=== PATIENT | male | born 1955 | race Caucasian/White ===

== ENCOUNTER 2017-10-24 15:00 | Inpatient (IN) | payer OTHER ==
--- NOTE | 2017-10-24 15:07 | PDOC ---
Rapid Medical Evaluation Chief Complaint: Redness To Affected Area Time Seen by Provider: 10/24/17 15:03 Medical Evaluation: 10/24/17 15:03 I have performed a brief in-person evaluation of this patient. The patient presents with a CC of: Erythema to the right great toe HPI: Pt complains of erythema to the right great toe with streaking x 2-3 days. Pt has a hx of DM. Pt denies fever at home. Pertinent PE findings: Skin: Pt has moderate erythema to the dorsal aspect of the right foot with erythema to the mid tibia. It is warm to the touch. Heart: RRR Lungs: Clear MS: Sensation intact to right great toe Neuro: Alert and Oriented Psych: Appropriate affect I have ordered the following: Basic labs and IV for IV abx The patient will proceed to the ED for further evaluation.
[2017-10-24 15:10] VITALS: BMI 36.6
[2017-10-24 16:16] LABS: BASO % 0.7 % (0-2.0); EOS % 0.7 % (0-4.5); HEMATOCRIT 39.7 % (35.4-49); HEMOGLOBIN 13.3 GM/dL (11.7-16.9); MCH 28.8 pg (25.7-33.7); MCHC 33.5 g/dl (32.0-35.9); MEAN CELL VOLUME 86.1 fl (80-96); MEAN PLT VOLUME 8.4 fl (7.5-11.1); MONO % 5.5 % (3.8-10.2); NEUT % 86.1 % (42.8-82.8); PLATELET COUNT 322 K/MM3 (134-434); RBC 4.62 M/mm3 (4.00-5.60); RDW 14.9 % (11.9-15.9); WHITE BLOOD COUNT 10.3 K/mm3 (4.0-10.0)
[2017-10-24] MEDS ORDERED: VANCOMYCIN 1,250 MG in DEXTROSE 5%-WATER - 250 ML IVPB ONE (16:17)
[2017-10-24 16:48] LABS: ALBUMIN 3.9 g/dl (3.4-5.0); ANION GAP 8 MMOL/L (8-16); BILIRUBIN,TOTAL 0.6 mg/dL (0.2-1); BLOOD UREA NITROGEN 19 mg/dL (7-18); CALCIUM 9.2 mg/dL (8.5-10.1); CHLORIDE 103 mmol/L (98-107); CO2 27 mmol/L (21-32); GLUCOSE,RANDOM 129 mg/dL (74-106); POTASSIUM 4.3 mmol/L (3.5-5.1); SGOT/AST 23 U/L (15-37); SGPT/ALT 38 U/L (13-61); SODIUM 138 mmol/L (136-145); TOT PROT 7.7 g/dl (6.4-8.2)
[2017-10-24 16:49] LABS: ALK PHOS 68 U/L (45-117)
--- NOTE | 2017-10-24 17:42 | PDOC ---
History of Present Illness <Charlene Bustos - Last Filed: 10/24/17 17:47> - History of Present Illness Initial Comments: 10/24/17 17:36 62 M with h/o DM, MG presenting to ED with RLE redness and swelling. Pt states that this started about 4 weeks ago. Denies any injury to the leg. Pt states that over the past week, the redness began to spread up his leg. Denies F/C. Denies any significant pain. 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 Does not currently follow with a vascular surgeon. <MaribellRene - Last Filed: 10/24/17 18:05> - General Chief Complaint: Redness To Affected Area Stated Complaint: INFECTION R LEG Time Seen by Provider: 10/24/17 15:03 Past History <Charlene Bustos - Last Filed: 10/24/17 17:47> - Past Medical History COPD: No Diabetes: Yes (IDDM) HTN: Yes Hypercholesterolemia: Yes Psychiatric Problems: Yes Other medical history: MYASTHENIA GRAVIS - Suicide/Smoking/Psychosocial Hx Smoking History: Never smoked Information on smoking cessation initiated: No Hx Alcohol Use: No Drug/Substance Use Hx: No Substance Use Type: None <MaribellRene - Last Filed: 10/24/17 18:05> - Past Medical History Allergies/Adverse Reactions: Allergies Allergy/AdvReac Type Severity Reaction Status Date / Time Penicillins Allergy Verified 10/24/17 15:04 Home Medications: Ambulatory Orders Atorvastatin Ca [Lipitor] 20 mg PO HS 10/24/17 Azathioprine 75 mg PO BID 10/24/17 Hydrochlorothiazide 25 mg PO DAILY 10/24/17 Losartan Potassium 100 mg PO DAILY 10/24/17 Metoprolol Succinate 200 mg PO DAILY 10/24/17 Nifedipine ER [Procardia Xl -] 120 mg PO DAILY 10/24/17 Nortriptyline HCl [Pamelor -] 10 mg PO HS 10/24/17 Pyridostigmine [place] 60 mg PO TID 10/24/17 Tamsulosin HCl 0.4 mg PO HS 10/24/17 metFORMIN HCL [Metformin HCl] 1,000 mg PO BID 10/24/17 Review of Systems - Review of Systems Comments:: 10/24/17 17:42 "GENERAL/CONSTITUTIONAL: No fever or chills. No weakness. HEAD, EYES, EARS, NOSE AND THROAT: No change in vision. No ear pain or discharge. No sore throat. CARDIOVASCULAR: No chest pain or shortness of breath. RESPIRATORY: No cough, wheezing, or hemoptysis. GASTROINTESTINAL: No nausea, vomiting, diarrhea or constipation. GENITOURINARY: No dysuria, frequency, or change in urination. MUSCULOSKELETAL: No joint or muscle swelling or pain. No neck or back pain. SKIN: + redness and swelling to LLE NEUROLOGIC: No headache, vertigo, loss of consciousness, or change in strength/ sensation. ENDOCRINE: No increased thirst. No abnormal weight change. HEMATOLOGIC/LYMPHATIC: No anemia, easy bleeding, or history of blood clots. ALLERGIC/IMMUNOLOGIC: No hives or skin allergy. <Rene Reyna - Last Filed: 10/24/17 18:05> *Physical Exam - Vital Signs Last Vital Signs Temp Pulse Resp BP Pulse Ox 98.6 F 90 16 141/75 98 10/24/17 15:04 10/24/17 15:04 10/24/17 15:04 10/24/17 15:04 10/24/17 15:04 <Charlene Bustos - Last Filed: 10/24/17 17:47> - Vital Signs Last Vital Signs Temp Pulse Resp BP Pulse Ox 98.6 F 90 16 141/75 98 10/24/17 15:04 10/24/17 15:04 10/24/17 15:04 10/24/17 15:04 10/24/17 15:04 - Physical Exam Comments: 10/24/17 17:42 "GENERAL: Awake, alert, and fully oriented, in no acute distress. HEAD: No signs of trauma EYES: PERRLA, EOMI, sclera anicteric, conjunctiva clear ENT: Auricles normal inspection, hearing grossly normal, nares patent, oropharynx clear without exudates. Moist mucosa NECK: Nontender, no stepoffs, Normal ROM, supple, no lymphadenopathy, JVD, or masses LUNGS: Breath sounds equal, clear to auscultation bilaterally. No wheezes, and no crackles HEART: Regular rate and rhythm, normal S1 and S2, no murmurs, rubs or gallops ABDOMEN: Soft, nontender, normoactive bowel sounds. No guarding, no rebound. No masses EXTREMITIES: Normal range of motion, no edema. No clubbing or cyanosis. No cords, erythema, or tenderness NEUROLOGICAL: Cranial nerves II through XII intact. 5/5 strength and sensation in all extremities, Normal speech, normal gait, normal cerebellar function SKIN: + RLE erythema and warmth extending from toes to mid amezcua, + mild edema, no purulent drainage <Rene Reyna - Last Filed: 10/24/17 18:05> ED Treatment Course - LABORATORY CBC & Chemistry Diagram: 10/24/17 15:54 10/24/17 15:54 - ADDITIONAL ORDERS Additional order review: Laboratory Results 10/24/17 15:54 Sodium 138 Potassium 4.3 Chloride 103 Carbon Dioxide 27 Anion Gap 8 BUN 19 H Creatinine 1.0 Creat Clearance w eGFR > 60 Random Glucose 129 H Calcium 9.2 Total Bilirubin 0.6 AST 23 ALT 38 Alkaline Phosphatase 68 Total Protein 7.7 Albumin 3.9 10/24/17 15:54 RBC 4.62 MCV 86.1 MCHC 33.5 RDW 14.9 MPV 8.4 Neutrophils % 86.1 H Lymphocytes % 7.0 L Monocytes % 5.5 Eosinophils % 0.7 Basophils % 0.7 - RADIOLOGY Radiograph Interpretation: 10/24/17 17:47 Doppler of lower extremity as reviewed by Dr. Torres reports no DVT is identified. <Charlene Bustos - Last Filed: 10/24/17 17:47> - LABORATORY CBC & Chemistry Diagram: 10/24/17 15:54 10/24/17 15:54 - ADDITIONAL ORDERS Additional order review: Laboratory Results 10/24/17 15:54 Sodium 138 Potassium 4.3 Chloride 103 Carbon Dioxide 27 Anion Gap 8 BUN 19 H Creatinine 1.0 Creat Clearance w eGFR > 60 Random Glucose 129 H Calcium 9.2 Total Bilirubin 0.6 AST 23 ALT 38 Alkaline Phosphatase 68 Total Protein 7.7 Albumin 3.9 10/24/17 15:54 RBC 4.62 MCV 86.1 MCHC 33.5 RDW 14.9 MPV 8.4 Neutrophils % 86.1 H Lymphocytes % 7.0 L Monocytes % 5.5 Eosinophils % 0.7 Basophils % 0.7 - RADIOLOGY Radiology Studies Ordered: Category Date Time Status FOOT-RIGHT [RAD] Stat Radiology 10/24/17 16:16 Ordered DUPLEX VASCUL US-1 LEG [US] Stat Ultrasound 10/24/17 16:16 Taken <Rene Reyna - Last Filed: 10/24/17 18:05> Medical Decision Making - Medical Decision Making 10/24/17 17:46 microblog sent to [facility], call returned promptly and case discussed. <Charlene Bustos - Last Filed: 10/24/17 17:47> - Medical Decision Making 10/24/17 17:43 62 M with cellulitis of RLE. Pt with h/o DM and prior R 1st toe amputation. Will obtain XR to evaluate for osteo. Will also r/o DVT given asymmetric swelling. - Labs, cultures - RLE doppler - XR R foot - Vancomycin IV - Admit 10/24/17 17:49 Labs wnl Doppler negative XR pending Pt admitted to hospitalist. <Rene Reyna - Last Filed: 10/24/17 18:05> *DC/Admit/Observation/Transfer <Charlene Bustos - Last Filed: 10/24/17 17:47> - Discharge Dispostion Decision to Admit order: Yes - Attestations Physician Attestion: 10/24/17 17:49 I, Dr. Rene Reyna MD, attest that this document has been prepared under my direction and personally reviewed by me in its entirety. I further attest, that it accurately reflects all work, treatment, procedures and medical decision -making performed by me. <Rene Reyna - Last Filed: 10/24/17 18:05> Diagnosis at time of Disposition: Cellulitis
--- NOTE | 2017-10-24 18:38 | HP ---
<JairogeraldomichaelaCharles - Last Filed: 10/24/17 19:17> CHIEF COMPLAINT: swelling and redness of right lower extremity PCP: HISTORY OF PRESENT ILLNESS: Patient is a 62 year old male with history significant for diabetes s/p amputation of right great toe, hypertension, myasthenia gravis, coronary artery disease s/p 1 stent, presents with complaint of painless redness and swelling of his right foot for the past month. Presents to hospital today because he could not see his primary care physician until next week, and his bother who is a nurse told him to come to the ED. Denies inciting event, denies trauma. States that he recently returned from a [place] cruise, however denies swimming in ocean or pool. Over the past week the swelling and erythema has spread upwards to the anterior right leg. Denies pain, change or loss of sensation, or discharge from right lower extremity. Denies headaches, dizziness , fevers, chills, shortness of breath, chest pain, palpitations, abdominal pain , nausea, vomiting, diarrhea ER course was notable for: (1) (2) (3) Recent Travel: PAST MEDICAL HISTORY: diabetes s/p amputation of right great toe 8 years ago, hypertension, myasthenia gravis, coronary artery disease s/p 1 stent in 2001 at [facility] PAST SURGICAL HISTORY: amputation right great toe, 1x stent in [place] Social History: Smoking: smokes cigars only in the summer. Denies cigarette smoking. Alcohol: Admits 1-2 drinks on social occasion Drugs: Denies Family History: Allergies Penicillins Allergy (Verified 10/24/17 15:04) HOME MEDICATIONS: Home Medications Medication Instructions Recorded Atorvastatin Ca [Lipitor] 20 mg PO HS 10/24/17 Azathioprine 75 mg PO BID 10/24/17 Hydrochlorothiazide 25 mg PO DAILY 10/24/17 Losartan Potassium 100 mg PO DAILY 10/24/17 Metoprolol Succinate 200 mg PO DAILY 10/24/17 Nifedipine ER [Procardia Xl -] 120 mg PO DAILY 10/24/17 Nortriptyline HCl [Pamelor -] 10 mg PO HS 10/24/17 Pyridostigmine [place] 60 mg PO TID 10/24/17 Tamsulosin HCl 0.4 mg PO HS 10/24/17 metFORMIN HCL [Metformin HCl] 1,000 mg PO BID 10/24/17 REVIEW OF SYSTEMS CONSTITUTIONAL: Absent: fever, chills, diaphoresis, generalized weakness, malaise. CARDIOVASCULAR: Absent: chest pain, syncope, palpitations, lightheadedness RESPIRATORY: Absent: cough, shortness of breath, dyspnea with exertion, wheezing, GASTROINTESTINAL: Absent: abdominal pain, abdominal distension, nausea, vomiting, diarrhea, constipation GENITOURINARY: Absent: dysuria, hematuria, flank pain, MUSCULOSKELETAL: Absent: myalgia, arthralgia, SKIN: Admits: Erythema and swelling over right lower extremity. NEUROLOGIC: Absent: headache, focal weakness or paresthesias, dizziness, PHYSICAL EXAMINATION Vital Signs - 24 hr 10/24/17 15:04 Temperature 98.6 F Pulse Rate 90 Respiratory 16 Rate Blood Pressure 141/75 O2 Sat by Pulse 98 Oximetry (%) GENERAL: Awake, alert, and fully oriented, in no acute distress. HEAD: Normocephalic, atraumatic EYES: Pupils equal, round and reactive to light, extraocular movements intact, sclera anicteric, conjunctiva clear. EARS, NOSE, THROAT: Oropharynx clear without exudates. Moist mucous membranes. NECK: Normal range of motion, supple without lymphadenopathy. LUNGS: Breath sounds equal, clear to auscultation bilaterally. No wheezes, and no crackles. No accessory muscle use. HEART: Regular rate and rhythm, normal S1 and S2 without murmur, rub or gallop. ABDOMEN: Obese. Soft, nontender, not distended, normoactive bowel sounds, no guarding, no rebound. No hepatomegaly or splenomegaly appreciated. UPPER EXTREMITIES: 2+ pulses, warm. Strength 5/5 in flexion, extension, abduction, adduction B/L LOWER EXTREMITIES: 1+ pitting edema right lower extremity, tense and firm. Scar from right great toe amputation appears cobbled, with erythema progressing proximally around foot and superiorly at anterior leg. Nontender to palpation. No drainage expressed. NEUROLOGICAL: Cranial nerves II-XII intact. Normal speech. No gross focal deficits. Sensation intact B/L upper and lower extremities. PSYCHIATRIC: Cooperative. Good eye contact. Appropriate mood and affect. SKIN: Erythema and callor at right lower extremity. Laboratory Results - last 24 hr 10/24/17 10/24/17 15:54 15:54 WBC 10.3 H RBC 4.62 Hgb 13.3 Hct 39.7 MCV 86.1 MCH 28.8 MCHC 33.5 RDW 14.9 Plt Count 322 MPV 8.4 Absolute Neuts (auto) 8.8 H Neutrophils % 86.1 H Lymphocytes % 7.0 L Monocytes % 5.5 Eosinophils % 0.7 Basophils % 0.7 Nucleated RBC % 0 Sodium 138 Potassium 4.3 Chloride 103 Carbon Dioxide 27 Anion Gap 8 BUN 19 H Creatinine 1.0 Creat Clearance w eGFR > 60 Random Glucose 129 H Calcium 9.2 Total Bilirubin 0.6 AST 23 ALT 38 Alkaline Phosphatase 68 Total Protein 7.7 Albumin 3.9 ASSESSMENT/PLAN: Patient is a 62 year old male with history significant for diabetes s/p amputation of right great toe, hypertension, myasthenia gravis, coronary artery disease s/p 1 stent, presents with complaint of painless redness and swelling of his right foot for the past month. Cellulitis -Vancomycin 1250mg IV given in ED -Doxycycline 100mg IV Q12 -ID consult (Dr. Hooker) -F/U Blood cultures -F/U wound cultures -F/U Xray of lower extremity Myasthenia Gravis -Azathioprine 75mg PO BID -Pyridostigmine 60mg PO TID HTN -Nifedipine 120mg PO QD -Metoprolol succinate 200mg PO QD -Losartan 100mg PO QD -Hydrochlorothiazide 25mg PO QD DM -Hold oral metformin -ISS -BGM ACHS CAD -Continue Aspirin 81 mg PO HLD -Atorvastatin 20mg PO HS BPH -Tamsulosin 0.4mg PO HS FEN -No IV fluids. Encourage judicious oral hydration -Follow CMP -Diabetic, salt controlled diet Prophylaxis -Heparin 5000units subq TID Disposition -Admit to medical-surgical floor for IV antibiotics. Visit type - Emergency Visit Emergency Visit: Yes Care time: The patient presented to the Emergency Department on the above date and was hospitalized for further evaluation of their emergent condition. - New Patient This patient is new to me today: Yes Date on this admission: 10/24/17 - Critical Care Critical Care patient: No Hospitalist Screening - Colonoscopy Questionnaire Colonoscopy Questionnaire: Colonoscopy Questionnaire - Patient: 50 - 75 years old and never had a screening colonoscopy: Unknown History of colon or rectal polyps, or CA: Unknown History of IBD, Crohn's disease or UC: Unknown History of abdominal radiation therapy as a child: Unknown - Relative: 1 with colon or rectal CA, or polyps at age 60 or younger: Unknown Colon or rectal CA diagnosed at age 45 or younger: Unknown Multiple relatives with colon or rectal CA: Unknown - Outcome: Screening Result: Negative Screen <Deng Robert - Last Filed: 10/24/17 20:59> CorrectioN: Azathioprine is not for Myasthinia Gravis, please check with the patient why is he on the medication? Hospitalist Screening - Colonoscopy Questionnaire Colonoscopy Questionnaire: Colonoscopy Questionnaire
[2017-10-24] MEDS ORDERED: DOXYCYCLINE INJECTION 100 MG in DEXTROSE 5%-WATER - 100 ML IVPB ONE (18:45)
[2017-10-24] MEDS ORDERED: DOXYCYCLINE INJECTION 100 MG in DEXTROSE 5%-WATER - 100 ML IVPB SCH (19:00)
[2017-10-24] MEDS ORDERED: DOXYCYCLINE HYCLATE 100 MG VIAL ONE (19:08)
--- NOTE | 2017-10-24 19:45 | PN ---
Teaching Attending Note Name of Resident: Charles Trivedi ATTENDING PHYSICIAN STATEMENT I saw and evaluated the patient. I reviewed the resident's note and discussed the case with the resident. I agree with the resident's findings and plan as documented. SUBJECTIVE: Patient is a 62 year old male with PMHx of T2DM s/p amputation of right great toe, hypertension, myasthenia gravis, coronary artery disease s/p 1 stent, presents c/o having swelling and erythema of his right foot for the past month. OBJECTIVE: Vital Signs Temperature 98.6 F 10/24/17 15:04 Pulse Rate 90 10/24/17 15:04 Respiratory Rate 16 10/24/17 15:04 Blood Pressure 141/75 10/24/17 15:04 O2 Sat by Pulse Oximetry (%) 98 10/24/17 15:04 GENERAL: Awake, alert, and fully oriented, in no acute distress. HEAD: Normocephalic, atraumatic EYES: Pupils equal, round and reactive to light, extraocular movements intact, sclera anicteric, conjunctiva clear. EARS, NOSE, THROAT: Oropharynx clear without exudates. Moist mucous membranes. NECK: Normal range of motion, supple without lymphadenopathy. LUNGS: Breath sounds equal, clear to auscultation bilaterally. No wheezes, and no crackles. HEART: Regular rate and rhythm, normal S1 and S2 without murmur, rub or gallop. ABDOMEN: Obese. Soft, nontender, not distended, normoactive bowel sounds, No hepatomegaly or splenomegaly appreciated. EXTREMITIES: 2+ pulses, warm. right toe amputated with cracked, bloody, skin with mid lower leg cellulitis. NEUROLOGICAL: Cranial nerves II-XII intact. Normal speech. No gross focal deficits. Sensation intact B/L upper and lower extremities. PSYCHIATRIC: Cooperative. Good eye contact. Appropriate mood and affect. SKIN: Erythema and callor at right lower extremity. CBCD WBC 10.3 K/mm3 (4.0-10.0) H 10/24/17 15:54 RBC 4.62 M/mm3 (4.00-5.60) 10/24/17 15:54 Hgb 13.3 GM/dL (11.7-16.9) 10/24/17 15:54 Hct 39.7 % (35.4-49) 10/24/17 15:54 MCV 86.1 fl (80-96) 10/24/17 15:54 MCHC 33.5 g/dl (32.0-35.9) 10/24/17 15:54 RDW 14.9 % (11.9-15.9) 10/24/17 15:54 Plt Count 322 K/MM3 (134-434) 10/24/17 15:54 MPV 8.4 fl (7.5-11.1) 10/24/17 15:54 CMP Sodium 138 mmol/L (136-145) 10/24/17 15:54 Potassium 4.3 mmol/L (3.5-5.1) 10/24/17 15:54 Chloride 103 mmol/L (98-107) 10/24/17 15:54 Carbon Dioxide 27 mmol/L (21-32) 10/24/17 15:54 Anion Gap 8 MMOL/L (8-16) 10/24/17 15:54 BUN 19 mg/dL (7-18) H 10/24/17 15:54 Creatinine 1.0 mg/dL (0.55-1.3) 10/24/17 15:54 Creat Clearance w eGFR > 60 (>60) 10/24/17 15:54 Random Glucose 129 mg/dL (74-106) H 10/24/17 15:54 Calcium 9.2 mg/dL (8.5-10.1) 10/24/17 15:54 Total Bilirubin 0.6 mg/dL (0.2-1) 10/24/17 15:54 AST 23 U/L (15-37) 10/24/17 15:54 ALT 38 U/L (13-61) 10/24/17 15:54 Alkaline Phosphatase 68 U/L (45-117) 10/24/17 15:54 Total Protein 7.7 g/dl (6.4-8.2) 10/24/17 15:54 Albumin 3.9 g/dl (3.4-5.0) 10/24/17 15:54 Current Medications Generic Name Dose Route Start Last Admin Trade Name Freq PRN Reason Stop Dose Admin Atorvastatin Calcium 20 mg 10/24/17 22:00 Lipitor - PO HS JUSTINE Azathioprine 75 mg 10/24/17 22:00 Imuran - PO BID JUSTINE Heparin Sodium (Porcine) 5,000 unit 10/24/17 22:00 Heparin - SQ TID [facility] Hydrochlorothiazide 25 mg 10/25/17 10:00 Hctz - PO DAILY [facility] Doxycycline Hyclate 100 mg/ 100 mls @ 100 mls/hr 10/24/17 19:00 10/24/17 19: 14 Dextrose IVPB 100 mls/hr BID@0700,1900 [facility] Administration Insulin Aspart 1 vial 10/24/17 22:00 Novolog Vial Sliding Scale - SQ ACHS [facility] Protocol Losartan Potassium 100 mg 10/25/17 10:00 Cozaar - PO DAILY [facility] Metoprolol Succinate 200 mg 10/25/17 10:00 Toprol Xl - PO DAILY [facility] Nifedipine 120 mg 10/25/17 10:00 Procardia Xl - PO DAILY [facility] Nortriptyline HCl 10 mg 10/24/17 22:00 Pamelor - PO HS [facility] Pyridostigmine [place] 60 mg 10/24/17 22:00 Mestinon - PO TID [facility] Tamsulosin HCl 0.4 mg 10/24/17 22:00 Flomax - PO [facility] Home Medications Medication Instructions Recorded Atorvastatin Ca [Lipitor] 20 mg PO HS 10/24/17 Azathioprine 75 mg PO BID 10/24/17 Hydrochlorothiazide 25 mg PO DAILY 10/24/17 Losartan Potassium 100 mg PO DAILY 10/24/17 Metoprolol Succinate 200 mg PO DAILY 10/24/17 Nifedipine ER [Procardia Xl -] 120 mg PO DAILY 10/24/17 Nortriptyline HCl [Pamelor -] 10 mg PO HS 10/24/17 Pyridostigmine [place] 60 mg PO TID 10/24/17 Tamsulosin HCl 0.4 mg PO HS 10/24/17 metFORMIN HCL [Metformin HCl] 1,000 mg PO BID 10/24/17 ASSESSMENT AND PLAN: Patient is a 62 year old male with PMHx of diabetes s/p amputation of right great toe, hypertension, myasthenia gravis, coronary artery disease s/p 1 stent , presents c/o having cellulitis of right LE with extension over a month with worsening symptoms. #Acute Cellulitis of lower extremity on Vancomycin given in ED, will , Doxycycline 100mg IV Q12, ID on consult, (Dr. Hooker), F/U Blood cultures, #Myasthenia Gravis: Pyridostigmine 60mg PO TID #HTN : continue Nifedipine, Metoprolol ,Losartan , Hydrochlorothiazide #T2DM: ISS, with coverage , hold metformin #CAD continue Aspirin 81 mg #HLD: Atorvastatin 20mg PO HS #BPH ;Tamsulosin 0.4mg PO HS DVT px: Heparin 5000units Please check why the patient is on Immuran?
[2017-10-24] MEDS ORDERED: INSULIN (NOVOLOG) ASPART 100 UNITS/ML 10ML VIAL ONE (21:44)
[2017-10-24] MEDS ORDERED: azaTHIOprine 50 MG TABLET PO SCH (22:00)
[2017-10-24] MEDS ORDERED: FLU VACCINE QUAD 60 MCG/0.5 ML (MDV 18-19) IM ONE (22:07)
[2017-10-24] MEDS: HEPARIN NA (PORCINE) 5,000 UNITS/ML 1ML VIAL SQ SCH (22:19)
[2017-10-24] MEDS: INSULIN SLIDING SCALE (NOVOLOG) 1 VIAL SQ SCH (22:19)
[2017-10-24] MEDS: ATORVASTATIN CA 20 MG TABLET (FP) PO SCH (22:20)
[2017-10-24] MEDS: TAMSULOSIN HCL 0.4 MG CAP.ER.24H (FP) PO SCH (22:20)
[2017-10-24] MEDS: NORTRIPTYLINE HCL 10 MG CAPSULE PO SCH (22:22)
[2017-10-24] MEDS: PYRIDOSTIGMINE BROMIDE 60 MG TABLET PO SCH (22:22)
[2017-10-25] MEDS: HEPARIN NA (PORCINE) 5,000 UNITS/ML 1ML VIAL SQ SCH ×3 (06:24→21:13)
[2017-10-25] MEDS: PYRIDOSTIGMINE BROMIDE 60 MG TABLET PO SCH ×3 (06:24→21:13)
[2017-10-25] MEDS: INSULIN SLIDING SCALE (NOVOLOG) 1 VIAL SQ SCH ×3 (06:24→17:19)
[2017-10-25 07:16] LABS: BASO % 0.4 % (0-2.0); EOS % 1.1 % (0-4.5); HEMATOCRIT 38.1 % (35.4-49); HEMOGLOBIN 12.7 GM/dL (11.7-16.9); LYMPH % 17.1 % (8-40); MCH 28.4 pg (25.7-33.7); MCHC 33.3 g/dl (32.0-35.9); MEAN CELL VOLUME 85.3 fl (80-96); MEAN PLT VOLUME 7.9 fl (7.5-11.1); MONO % 8.3 % (3.8-10.2); NEUT % 73.1 % (42.8-82.8); PLATELET COUNT 272 K/MM3 (134-434); RBC 4.46 M/mm3 (4.00-5.60); RDW 14.5 % (11.9-15.9); WHITE BLOOD COUNT 9.6 K/mm3 (4.0-10.0)
[2017-10-25] MEDS ORDERED: PT OWN MED DRAWER 7, Y5N ONE ×6 (09:08→21:04)
[2017-10-25] MEDS: azaTHIOprine 50 MG TABLET PO SCH ×2 (09:16→21:13)
--- NOTE | 2017-10-25 09:16 | PN ---
Physical Exam: SUBJECTIVE: Patient seen and examined at bedside this morning. Patient denies any acute complaints this morning. Admits slight reduction in erythema of anterior leg. Denies pain, headache, fevers, chills, shortness of breath, chest pain, palpitations, abdominal pain, nausea, vomiting, diarrhea. OBJECTIVE: Vital Signs Period Temp Pulse Resp BP Sys/Cortez Pulse Ox Last 24 Hr 98.3 F-98.6 F 73-90 16-18 113-160/74-86 97-98 GENERAL: Awake, alert, and fully oriented, in no acute distress. HEAD: Normocephalic, atraumatic EYES: Pupils equal, round and reactive to light, extraocular movements intact, sclera anicteric, conjunctiva clear. EARS, NOSE, THROAT: Oropharynx clear without exudates. Moist mucous membranes. NECK: Normal range of motion, supple without lymphadenopathy. LUNGS: Breath sounds equal, clear to auscultation bilaterally. No wheezes, and no crackles. No accessory muscle use. HEART: Regular rate and rhythm, normal S1 and S2 without murmur, rub or gallop. ABDOMEN: Obese. Soft, nontender, not distended, normoactive bowel sounds, no guarding, no rebound. No hepatomegaly or splenomegaly appreciated. UPPER EXTREMITIES: 2+ pulses, warm. Strength 5/5 in flexion, extension, abduction, adduction B/L LOWER EXTREMITIES: 1+ pitting edema right lower extremity, tense and firm. Scar from right great toe amputation appears cobbled, with erythema progressing proximally around foot and superiorly at anterior leg. Nontender to palpation. No drainage expressed. NEUROLOGICAL: Cranial nerves II-XII intact. Normal speech. No gross focal deficits. Sensation intact B/L upper and lower extremities. PSYCHIATRIC: Cooperative. Good eye contact. Appropriate mood and affect. SKIN: Erythema and callor at right lower extremity. Laboratory Results - last 24 hr 10/24/17 10/24/17 10/24/17 15:54 15:54 22:18 WBC 10.3 H RBC 4.62 Hgb 13.3 Hct 39.7 MCV 86.1 MCH 28.8 MCHC 33.5 RDW 14.9 Plt Count 322 MPV 8.4 Absolute Neuts (auto) 8.8 H Neutrophils % 86.1 H Lymphocytes % 7.0 L Monocytes % 5.5 Eosinophils % 0.7 Basophils % 0.7 Nucleated RBC % 0 Sodium 138 Potassium 4.3 Chloride 103 Carbon Dioxide 27 Anion Gap 8 BUN 19 H Creatinine 1.0 Creat Clearance w eGFR > 60 POC Glucometer 228 Random Glucose 129 H Calcium 9.2 Total Bilirubin 0.6 AST 23 ALT 38 Alkaline Phosphatase 68 Total Protein 7.7 Albumin 3.9 10/25/17 10/25/17 06:22 06:25 WBC 9.6 RBC 4.46 Hgb 12.7 Hct 38.1 MCV 85.3 MCH 28.4 MCHC 33.3 RDW 14.5 Plt Count 272 MPV 7.9 Absolute Neuts (auto) 7.0 Neutrophils % 73.1 Lymphocytes % 17.1 D Monocytes % 8.3 Eosinophils % 1.1 Basophils % 0.4 Nucleated RBC % 0 Sodium Potassium Chloride Carbon Dioxide Anion Gap BUN Creatinine Creat Clearance w eGFR POC Glucometer 109 Random Glucose Calcium Total Bilirubin AST ALT Alkaline Phosphatase Total Protein Albumin Active Medications Generic Name Dose Route Start Last Admin Trade Name Freq PRN Reason Stop Dose Admin Atorvastatin Calcium 20 mg 10/24/17 22:00 10/24/17 22:20 Lipitor - PO 20 mg HS JUSTINE Administration Azathioprine 100 mg 10/25/17 10:00 Imuran - PO DAILY JUSTINE Azathioprine 50 mg 10/25/17 22:00 Imuran - PO HS JUSTINE Heparin Sodium (Porcine) 5,000 unit 10/24/17 22:00 10/25/17 06:24 Heparin - SQ 5,000 unit TID JUSTINE Administration Hydrochlorothiazide 25 mg 10/25/17 10:00 Hctz - PO DAILY [facility] Doxycycline Hyclate 100 mg/ 100 mls @ 100 mls/hr 10/25/17 10:00 Dextrose IVPB BID JSUTINE Insulin Aspart 1 vial 10/24/17 22:00 10/25/17 06:24 Novolog Vial Sliding Scale - SQ 2 units ACHS JUSTINE Administration Protocol Losartan Potassium 100 mg 10/25/17 10:00 Cozaar - PO DAILY JUSTINE Metoprolol Succinate 200 mg 10/25/17 10:00 Toprol Xl - PO DAILY JUSTINE Nifedipine 120 mg 10/25/17 10:00 Procardia Xl - PO DAILY JUSTINE Nortriptyline HCl 10 mg 10/24/17 22:00 10/24/17 22:22 Pamelor - PO 10 mg HS JUSTINE Administration Pyridostigmine Marshall 60 mg 10/24/17 22:00 10/25/17 06:24 Mestinon - PO 60 mg TID JUSTINE Administration Tamsulosin HCl 0.4 mg 10/24/17 22:00 10/24/17 22:20 Flomax - PO 0.4 mg HS JUSTINE Administration IMAGING Right lower extremity duplex venous ultrasound: No evidence of DVT. No superficial thrombophlebitis. Xray right foot: medial distal first metatarsal periosteal elevation without gross erosion. ASSESSMENT/PLAN: Patient is a 62 year old male with history significant for diabetes s/p amputation of right great toe, hypertension, myasthenia gravis, coronary artery disease s/p 1 stent, presents with complaint of painless redness and swelling of his right foot for the past month. Cellulitis, r/o osteomyelitis -Vancomycin 1250mg IV given in ED -ID consult (Dr. Hooker) appreciated: Vancomycin 1250mg IV BID (day 2) Aztreonam 1000mg IV Q8H (day 1) -F/U Blood cultures pending preliminary reading -F/U wound cultures pending preliminary reading -Outreach Consultant consult (Dr. Souza) -F/U MRI right lower extremity without contrast Myasthenia Gravis -Azathioprine 75mg PO BID -Pyridostigmine 60mg PO TID HTN -Nifedipine 120mg PO QD -Metoprolol succinate 200mg PO QD -Losartan 100mg PO QD -Hydrochlorothiazide 25mg PO QD DM -Novolog 70/30 30mg BID -ISS for lunch time only. -BGM ACHS CAD -Continue Aspirin 81 mg PO HLD -Atorvastatin 20mg PO HS BPH -Tamsulosin 0.4mg PO HS FEN -No IV fluids. Encourage judicious oral hydration -Follow CMP -Diabetic, salt controlled diet Prophylaxis -Heparin 5000units subq TID Disposition -Continue care in medical-surgical floor for IV antibiotics. Visit type - Emergency Visit Emergency Visit: Yes ED Registration Date: 10/24/17 Care time: The patient presented to the Emergency Department on the above date and was hospitalized for further evaluation of their emergent condition. - New Patient This patient is new to me today: No - Critical Care Critical Care patient: No - Discharge Referral Referred to [facility] Med P.C.: No
[2017-10-25] MEDS: LOSARTAN POTASSIUM 50 MG TABLET (FP) PO SCH (09:17)
[2017-10-25] MEDS: NIFEdipine E.R 60 MG TABLET (UD) PO SCH (09:17)
[2017-10-25] MEDS: HYDROCHLOROTHIAZIDE 25 MG TABLET (FP) PO SCH (09:17)
[2017-10-25 09:21] LABS: ALBUMIN 3.7 g/dl (3.4-5.0); BILIRUBIN,TOTAL 0.6 mg/dL (0.2-1); BLOOD UREA NITROGEN 20 mg/dL (7-18); CHLORIDE 103 mmol/L (98-107); CREATININE 0.8 mg/dL (0.55-1.3); GLUCOSE,RANDOM 114 mg/dL (74-106); PHOSPHOROUS 4.1 mg/dL (2.5-4.9); POTASSIUM 3.6 mmol/L (3.5-5.1); SODIUM 141 mmol/L (136-145); TOT PROT 7.1 g/dl (6.4-8.2)
[2017-10-25] MEDS ORDERED: DOXYCYCLINE INJECTION 100 MG in DEXTROSE 5%-WATER - 100 ML IVPB SCH (10:00)
[2017-10-25 10:29] LABS: ANION GAP 10 MMOL/L (8-16); CALCIUM 8.8 mg/dL (8.5-10.1); CO2 28 mmol/L (21-32); MAGNESIUM 1.5 mg/dL (1.8-2.4)
[2017-10-25 10:30] LABS: ALK PHOS 63 U/L (45-117); SGOT/AST 30 U/L (15-37); SGPT/ALT 41 U/L (13-61)
[2017-10-25] MEDS ORDERED: INSULIN (NOVOLOG) ASPART 100 UNITS/ML 10ML VIAL ONE (11:45)
--- NOTE | 2017-10-25 11:51 | PN ---
Progress Note (short form) - Note Progress Note: ID consult dictated imp/reccd cellulitis diabetes MG penicillin allergy 62 year old man with amputation of right great toe at [facility] 2009, myasthenia gravis admitted with worsening erythema of the right foot extending to his right amezcua no fevers no other associated symptoms PMD dr marcelo at [facility] pen allergy from childhood, denies anaphylaxis got back from a cruise one month ago, no swimming, no beach +DP pulse plan vanco/azactam f/u cultures f/u xray of foot- still not read Problem List - Problems (1) Cellulitis Code(s): L03.90 - CELLULITIS, UNSPECIFIED (2) Diabetes Code(s): E11.9 - TYPE 2 DIABETES MELLITUS WITHOUT COMPLICATIONS (3) Myasthenia gravis Code(s): G70.00 - MYASTHENIA GRAVIS WITHOUT (ACUTE) EXACERBATION (4) Penicillin allergy Code(s): Z88.0 - ALLERGY STATUS TO PENICILLIN
[2017-10-25] MEDS ORDERED: VANCOMYCIN 1,000 MG in DEXTROSE 5%-WATER - 250 ML IVPB SCH (12:00)
[2017-10-25] MEDS: AZTREONAM 1 GM in DEXTROSE 5%-WATER - 50 ML IVPB SCH ×2 (12:31→17:36)
[2017-10-25] MEDS: VANCOMYCIN 1,250 MG in DEXTROSE 5%-WATER - 250 ML IVPB SCH (15:01)
[2017-10-25] MEDS: INSULIN (NOVOLOG MIX 70/30) 100 UNITS/ML MDV SQ SCH (17:35)
[2017-10-25] MEDS ORDERED: INSULIN SLIDING SCALE (NOVOLOG) 1 VIAL SQ SCH (18:30)
--- NOTE | 2017-10-25 19:11 | PN ---
Teaching Attending Note Name of Resident: Charles Trivedi ATTENDING PHYSICIAN STATEMENT I saw and evaluated the patient. I reviewed the resident's note and discussed the case with the resident. I agree with the resident's findings and plan as documented. SUBJECTIVE: No fever or chills . He thinks his leg has gotten better. R foot erythema started 1 month ago, R lower leg erythema started a week ago. OBJECTIVE: NAD Cv: RRR Lungs: CTAB Ext : R dorsal foot with erythema and increased warmth. erythema on amezcua, . R big toe amputation with no discharge ASSESSMENT AND PLAN: 62 y/o man withh/o diabetes s/p amputation of right great toe, hypertension, myasthenia gravis, coronary artery disease s/p stenting who presented with R Le erythema and edema , and was found to have cellulites 1- R lower ext cellulites: xray shows possible periosteal destruction . - cont azactam and vanco - get MRI of foot - follow blood cx 2- DM: - start Novolog mix 30 BID SSI for luncg . will adjust if needed 3- HTN : cont meds 4- dispo : HLOC
[2017-10-25] MEDS ORDERED: MAGNESIUM SULF 50% (8.12 MEQ/2 ML-1 GM VIAL) IVPB ONE (19:45)
[2017-10-25] MEDS: ATORVASTATIN CA 20 MG TABLET (FP) PO SCH (21:13)
[2017-10-25] MEDS: TAMSULOSIN HCL 0.4 MG CAP.ER.24H (FP) PO SCH (21:13)
[2017-10-25] MEDS: NORTRIPTYLINE HCL 10 MG CAPSULE PO SCH (21:15)
--- NOTE | 2017-10-25 23:23 | CONS ---
DATE OF CONSULTATION: DATE OF DICTATION: 10/25/2017 REQUESTED BY: Hospitalist service. This is a 62-year-old man with a longstanding history of diabetes since 1986. He is status post amputation of his big toe about 8 years ago at [facility]. He also has a history of myasthenia gravis from around 2010. Since that time, he has been on disability. He went on vacation one month ago. He went on a cruise with his brother and family. He never did any water events. He does not swim. He does not go out in the sun. He did not go to the beach. After he came back home his leg became red. His foot became red. Over the course of the one month, the erythema had spread to the anterior tibia. He denies any fevers or chills. He has not tried any treatments for his legs. PAST MEDICAL HISTORY: Notable for myasthenia gravis, which was diagnosed in 2010, followed by a neurologist at [facility]; diabetes diagnosed in 1986; hypertension; hyperlipidemia. PRIMARY DOCTOR: Dr. Barajas at [facility]. SURGICAL HISTORY: Notable for cholecystectomy and he has had a herniated disc in the past as well as an amputation of his toe. 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 He has 2 pet cats. The cruise was his most recent travel. He drinks alcohol socially. There is no history of substance use. FAMILY HISTORY: Unremarkable. ALLERGIES: PENICILLIN, SINCE HE WAS A BABY. HE IS UNAWARE OF THE NATURE OF THE ALLERGY. HE DOES NOT THINK IT IS ANAPHYLAXIS, BUT HE DOES NOT KNOW ANY DETAILS. MEDICATIONS AT HOME: Include atorvastatin, azathioprine, hydrochlorothiazide, losartan, metoprolol, nifedipine, nortriptyline, pyridostigmine, tamsulosin, metformin. REVIEW OF SYSTEMS: He has no fevers or chills, nausea, vomiting, diarrhea, or dysuria. Overall he is feeling well. PHYSICAL EXAMINATION: General: This is a pleasant man, in no acute distress. Vital Signs: Temperature is 98.4, pulse 81, blood pressure 160/86, respiratory rate is 18. He is saturating 98% on room air. HEENT: Normocephalic. His eyes are anicteric. Neck: Supple. Lungs: Clear to auscultation. Heart: Regular rate and rhythm. Abdomen: Soft, nontender. Extremities: He has diffuse erythema of the right foot. The amputation site has some cheloid scars on it and is well-healed without any drainage. He has some erythema extending to his anterior amezcua. LABORATORY: Notable. Admission white count was 10.3, repeat 9.6. Chemistries: BUN was 20, creatinine was 0.8. His cultures are pending. Duplex of the leg is negative for DVT. X-ray of the foot is pending. IN SUMMARY: This is a 62-year-old man with longstanding diabetes and myasthenia gravis and PENICILLIN ALLERGY with what appears to be cellulitis of the leg in the setting of diabetes and a PENICILLIN ALLERGY. I would continue vancomycin and tazobactam. Check a sedimentation rate and CRP given the duration of the symptoms, though there is no focality to suggest osteomyelitis at this time. The follow up x-ray of the foot has not been read. Case was discussed at length with the hospitalist. Further recommendations to follow. ROMI CRAWFORD M.D. [id number]
[2017-10-26] MEDS ORDERED: PT OWN MED DRAWER 7, Y5N ONE ×5 (00:08→21:20)
[2017-10-26] MEDS: VANCOMYCIN 1,250 MG in DEXTROSE 5%-WATER - 250 ML IVPB SCH ×2 (00:09→13:36)
[2017-10-26] MEDS: AZTREONAM 1 GM in DEXTROSE 5%-WATER - 50 ML IVPB SCH ×3 (02:03→17:15)
--- NOTE | 2017-10-26 06:15 | CONSULT ---
Consult - text type - Consultation Consultation Note: Podiatry Consultation: Pleasant 62 year old DM M presents for admission for worsening RLE redness/ swelling. Patient notes redness to the right foot for about 1 month, now presents with 1 week of redness to the lower leg. Denies F/V/N/C/SOB/CP. Currently afebrile VSS. PMHx: DM, Myasthenia Gravis, s/p R hallux amputation 2009 Meds: noted ALL: PCN LILLIANA: R foot: pedal pulses 1/4, TG warm-warm, CFT brisk to remaining toes. There is a hallux amputation stump with post-inflammatory verrucous skin changes ( diabetic dermopathy), there is linear fissuring within the amputation stump which is to the level of subcutaneous tissue, there is no probing to bone, there is no purulence, no fluctuance, no soft tissue crepitus. There is moderate periwound erythema. There is ascending fixed erythema to the lower leg. Blood Cx: no growth x 24 hrs Wound Cx: pending WBC: 9.6 R foot XR: periosteal elevation medial aspect of first metatarsal stump Venous Duplex: negative DVT Imp: 62 year old DM M with R foot cellulitis, s/p R hallux amputation 2009 1. IV abx per ID 2. Recommend local wound care for now with bactroban + DSD R foot 3. For MRI R foot 4. Will follow. Thank you for the courtesy of this consultation. Abran Souza DPM
[2017-10-26] MEDS: HEPARIN NA (PORCINE) 5,000 UNITS/ML 1ML VIAL SQ SCH ×3 (06:45→21:33)
[2017-10-26] MEDS: PYRIDOSTIGMINE BROMIDE 60 MG TABLET PO SCH ×3 (06:45→21:34)
[2017-10-26] MEDS: INSULIN (NOVOLOG MIX 70/30) 100 UNITS/ML MDV SQ SCH ×2 (06:46→17:30)
[2017-10-26] MEDS ORDERED: INSULIN (NOVOLOG) ASPART 100 UNITS/ML 10ML VIAL ONE ×3 (07:04→20:21)
[2017-10-26] MEDS ORDERED: INSULIN (NOVOLOG MIX 70/30) 100 UNITS/ML MDV SQ ONE ×2 (07:04→20:21)
[2017-10-26 07:24] LABS: HEMATOCRIT 37.1 % (35.4-49); HEMOGLOBIN 12.5 GM/dL (11.7-16.9); MCH 28.7 pg (25.7-33.7); MCHC 33.8 g/dl (32.0-35.9); MEAN CELL VOLUME 84.8 fl (80-96); PLATELET COUNT 262 K/MM3 (134-434); RBC 4.38 M/mm3 (4.00-5.60); RDW 14.2 % (11.9-15.9); WHITE BLOOD COUNT 6.9 K/mm3 (4.0-10.0)
[2017-10-26 07:39] LABS: CHLORIDE 101 mmol/L (98-107); POTASSIUM 4.1 mmol/L (3.5-5.1); SODIUM 138 mmol/L (136-145)
[2017-10-26 07:47] LABS: ANION GAP 7 MMOL/L (8-16); BLOOD UREA NITROGEN 13 mg/dL (7-18); CO2 30 mmol/L (21-32); CREATININE 0.8 mg/dL (0.55-1.3); GLUCOSE,RANDOM 175 mg/dL (74-106)
[2017-10-26] MEDS ORDERED: INSULIN SLIDING SCALE (NOVOLOG) 1 VIAL SQ SCH ×2 (10:00→11:30)
[2017-10-26] MEDS: NIFEdipine E.R 60 MG TABLET (UD) PO SCH (10:14)
[2017-10-26] MEDS: HYDROCHLOROTHIAZIDE 25 MG TABLET (FP) PO SCH (10:14)
[2017-10-26] MEDS: LOSARTAN POTASSIUM 50 MG TABLET (FP) PO SCH (10:14)
[2017-10-26] MEDS: azaTHIOprine 50 MG TABLET PO SCH ×2 (10:16→22:42)
--- NOTE | 2017-10-26 11:39 | PN ---
Physical Exam: SUBJECTIVE: Patient seen and examined at bedside this morning. Patient denies any acute complaints this morning. Admits improvement in erythema and swelling of anterior leg. Denies pain, headache, fevers, chills, shortness of breath, chest pain, palpitations, abdominal pain, nausea, vomiting, diarrhea. OBJECTIVE: Vital Signs Period Temp Pulse Resp BP Sys/Cortez Pulse Ox Last 24 Hr 97.5 F-98.5 F 63-74 20-22 127-134/71-80 98 GENERAL: Awake, alert, and fully oriented, in no acute distress. HEAD: Normocephalic, atraumatic EYES: Pupils equal, round and reactive to light, extraocular movements intact, sclera anicteric, conjunctiva clear. EARS, NOSE, THROAT: Oropharynx clear without exudates. Moist mucous membranes. NECK: Normal range of motion, supple without lymphadenopathy. LUNGS: Breath sounds equal, clear to auscultation bilaterally. No wheezes, and no crackles. No accessory muscle use. HEART: Regular rate and rhythm, normal S1 and S2 without murmur, rub or gallop. ABDOMEN: Obese. Soft, nontender, not distended, normoactive bowel sounds, no guarding, no rebound. No hepatomegaly or splenomegaly appreciated. UPPER EXTREMITIES: 2+ pulses, warm. Strength 5/5 in flexion, extension, abduction, adduction B/L LOWER EXTREMITIES: RLE amputation site debredied. 1+ pitting edema right lower extremity, tense and firm. Scar from right great toe amputation still appears cobbled, with erythema progressing proximally around foot and superiorly at anterior leg. Nontender to palpation. No drainage expressed. Swelling and erythema diminishing from outlined border. NEUROLOGICAL: Cranial nerves II-XII intact. Normal speech. No gross focal deficits. Sensation intact B/L upper and lower extremities. PSYCHIATRIC: Cooperative. Good eye contact. Appropriate mood and affect. SKIN: Erythema and callor at right lower extremity. Laboratory Results - last 24 hr 10/25/17 10/25/17 10/25/17 06:30 11:52 17:03 WBC RBC Hgb Hct MCV MCH MCHC RDW Plt Count MPV Sodium Potassium Chloride Carbon Dioxide Anion Gap BUN Creatinine Creat Clearance w eGFR POC Glucometer 262 324 Random Glucose Calcium C-Reactive Protein 1.4 H 10/25/17 10/26/17 10/26/17 21:22 06:40 06:40 WBC 6.9 RBC 4.38 Hgb 12.5 Hct 37.1 MCV 84.8 MCH 28.7 MCHC 33.8 RDW 14.2 Plt Count 262 MPV 8.0 Sodium 138 Potassium 4.1 Chloride 101 Carbon Dioxide 30 Anion Gap 7 L BUN 13 Creatinine 0.8 Creat Clearance w eGFR > 60 POC Glucometer 257 Random Glucose 175 H Calcium 9.0 C-Reactive Protein 10/26/17 06:46 WBC RBC Hgb Hct MCV MCH MCHC RDW Plt Count MPV Sodium Potassium Chloride Carbon Dioxide Anion Gap BUN Creatinine Creat Clearance w eGFR POC Glucometer 191 Random Glucose Calcium C-Reactive Protein Active Medications Generic Name Dose Route Start Last Admin Trade Name Freq PRN Reason Stop Dose Admin Atorvastatin Calcium 20 mg 10/24/17 22:00 10/25/17 21:13 Lipitor - PO 20 mg HS JUSTINE Administration Azathioprine 100 mg 10/25/17 10:00 10/26/17 10:16 Imuran - PO 100 mg DAILY JUSTINE Administration Azathioprine 50 mg 10/25/17 22:00 10/25/17 21:13 Imuran - PO 50 mg HS JUSTINE Administration Heparin Sodium (Porcine) 5,000 unit 10/24/17 22:00 10/26/17 06:45 Heparin - SQ 5,000 unit TID JUSTINE Administration Hydrochlorothiazide 25 mg 10/25/17 10:00 10/26/17 10:14 Hctz - PO 25 mg DAILY JUSTINE Administration Vancomycin HCl 1,250 mg/ 250 mls @ 166.667 mls/hr 10/25/17 13:00 10/26/17 00: 09 Dextrose IVPB 166.667 mls/hr BID@0100,1300 JUSTINE Administration Protocol Aztreonam 1 gm/ Dextrose 50 mls @ 100 mls/hr 10/25/17 12:30 10/26/17 10:16 IVPB 100 mls/hr Q8H-IV JUSTINE Administration Protocol Insulin Aspart 30 units 10/25/17 16:30 10/26/17 06:46 Novolog Mix 70/30 Vial SQ 30 unit BIDAC JUSTINE Administration Insulin Aspart 1 vial 10/26/17 11:30 Novolog Vial Sliding Scale - SQ 1130 JUSTINE Protocol Losartan Potassium 100 mg 10/25/17 10:00 10/26/17 10:14 Cozaar - PO 100 mg DAILY JUSTINE Administration Metoprolol Succinate 200 mg 10/25/17 10:00 10/26/17 10:14 Toprol Xl - PO 200 mg DAILY JUSTINE Administration Mupirocin 1 applic 10/26/17 10:00 Bactroban 2% Ointment - TP DAILY JUSTINE Nifedipine 120 mg 10/25/17 10:00 10/26/17 10:14 Procardia Xl - PO 120 mg DAILY JUSTINE Administration Nortriptyline HCl 10 mg 10/24/17 22:00 10/25/17 21:15 Pamelor - PO 10 mg HS JUSTINE Administration Pyridostigmine Pavo 60 mg 10/24/17 22:00 10/26/17 06:45 Mestinon - PO 60 mg TID JUSTINE Administration Tamsulosin HCl 0.4 mg 10/24/17 22:00 10/25/17 21:13 Flomax - PO 0.4 mg HS JUSTINE Administration IMAGING Right lower extremity duplex venous ultrasound: No evidence of DVT. No superficial thrombophlebitis. Xray right foot: medial distal first metatarsal periosteal elevation without gross erosion. MRI right lower extremity: ASSESSMENT/PLAN: Patient is a 62 year old male with history significant for diabetes s/p amputation of right great toe, hypertension, myasthenia gravis, coronary artery disease s/p 1 stent, presents with complaint of painless redness and swelling of his right foot for the past month. Cellulitis, r/o osteomyelitis -Vancomycin 1250mg IV given in ED -ID consult (Dr. Hooker) appreciated: Vancomycin 1250mg IV BID (day 3) Aztreonam 1000mg IV Q8H (day 2) -F/U vancomycin trough. Goal 15-20 -F/U Blood cultures pending preliminary reading -Wound cultures preliminary reading: Presumptive MSSA -Porcelain Finish Sprayer consult (Dr. 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 Myasthenia Gravis -Azathioprine 75mg PO BID -Pyridostigmine 60mg PO TID HTN -Nifedipine 120mg PO QD -Metoprolol succinate 200mg PO QD -Losartan 100mg PO QD -Hydrochlorothiazide 25mg PO QD DM -Novolog 70/30 30mg BID -ISS for lunch time only. -BGM ACHS -Continue Nortryptyline 10mg PO QHS for neuropathy CAD -Continue Aspirin 81 mg PO HLD -Atorvastatin 20mg PO HS BPH -Tamsulosin 0.4mg PO HS FEN -No IV fluids. Encourage judicious oral hydration -Follow CMP -Diabetic, salt controlled diet Prophylaxis -Heparin 5000units subq TID Disposition -Continue care in medical-surgical floor for IV antibiotics. Visit type - Emergency Visit Emergency Visit: Yes ED Registration Date: 10/24/17 Care time: The patient presented to the Emergency Department on the above date and was hospitalized for further evaluation of their emergent condition. - New Patient This patient is new to me today: No - Critical Care Critical Care patient: No - Discharge Referral Referred to [facility] Med P.C.: No
--- NOTE | 2017-10-26 11:44 | PN ---
Teaching Attending Note Name of Resident: Charles Trivedi ATTENDING PHYSICIAN STATEMENT I saw and evaluated the patient. I reviewed the resident's note and discussed the case with the resident. I agree with the resident's findings and plan as documented. SUBJECTIVE: No fever or chills . Nhe feels his leg and foot are better . OBJECTIVE: NAD Cv: RRR Lungs: CTAB Ext : R dorsal foot with erythema and increased warmth. erythema on amezcua is better. R big toe amputation with no discharge ASSESSMENT AND PLAN: 62 y/o man withh/o diabetes s/p amputation of right great toe, hypertension, myasthenia gravis, coronary artery disease s/p stenting who presented with R Le erythema and edema , and was found to have cellulites 1- R lower ext cellulites: with possible periosteal destruction on xray . - cont azactam and vanco - vanco trough before 4th dose - MRI of foot is still pending - follow blood cx . wound cx with MSSA 2- DM: - cont Novolog mix 30 BID -SSI for lunch . 3- HTN : cont meds 4- dispo : HLOC
[2017-10-26] MEDS: INSULIN SLIDING SCALE (NOVOLOG) 1 VIAL SQ SCH (12:15)
--- NOTE | 2017-10-26 14:58 | PN ---
Progress Note (short form) - Note Progress Note: abnormal xray noted Vital Signs Period Temp Pulse Resp BP Sys/Cortez Pulse Ox Last 24 Hr 97.5 F-98.7 F 63-71 20-22 125-134/73-80 98 cor-rrr lungs clear decreased erythema of the foot and amezcua no drainage CBC, BMP 10/26/17 06:40 10/26/17 06:40 Microbiology 10/24/17 19:30 Wound Gram Stain - Final 10/24/17 19:30 Wound Wound Culture - Preliminary Presumptive Mssa (Pbp2a Neg) 10/24/17 22:00 Blood - Peripheral Venous Blood Culture - Preliminary NO GROWTH OBTAINED AFTER 24 HOURS, INCUBATION TO CONTINUE FOR 4 DAYS. 10/24/17 20:45 Blood - Peripheral Venous Blood Culture - Preliminary NO GROWTH OBTAINED AFTER 24 HOURS, INCUBATION TO CONTINUE FOR 4 DAYS. imp/reccd cellulitis diabetes MG penicillin allergy abnormal xray of foot awaiting MRI to r/o osteo- crp is 1.4 continue vanco/azactam vanco trough ordered Problem List - Problems (1) Cellulitis Code(s): L03.90 - CELLULITIS, UNSPECIFIED (2) Diabetes Code(s): E11.9 - TYPE 2 DIABETES MELLITUS WITHOUT COMPLICATIONS (3) Myasthenia gravis Code(s): G70.00 - MYASTHENIA GRAVIS WITHOUT (ACUTE) EXACERBATION (4) Penicillin allergy Code(s): Z88.0 - ALLERGY STATUS TO PENICILLIN
[2017-10-26] MEDS: MUPIROCIN 2% TOPICAL OINTMENT 22 GM TUBE TP SCH (17:31)
[2017-10-26] MEDS: TAMSULOSIN HCL 0.4 MG CAP.ER.24H (FP) PO SCH (21:33)
[2017-10-26] MEDS: ATORVASTATIN CA 20 MG TABLET (FP) PO SCH (21:33)
[2017-10-26] MEDS: NORTRIPTYLINE HCL 10 MG CAPSULE PO SCH (21:34)
[2017-10-27] MEDS: AZTREONAM 1 GM in DEXTROSE 5%-WATER - 50 ML IVPB SCH ×3 (01:30→18:12)
[2017-10-27] MEDS ORDERED: PT OWN MED DRAWER 7, Y5N ONE ×6 (01:40→22:16)
[2017-10-27] MEDS: VANCOMYCIN 1,250 MG in DEXTROSE 5%-WATER - 250 ML IVPB SCH ×2 (01:57→14:31)
[2017-10-27] MEDS: INSULIN (NOVOLOG MIX 70/30) 100 UNITS/ML MDV SQ SCH ×2 (07:54→17:10)
[2017-10-27] MEDS: HEPARIN NA (PORCINE) 5,000 UNITS/ML 1ML VIAL SQ SCH ×3 (07:55→22:17)
[2017-10-27] MEDS: PYRIDOSTIGMINE BROMIDE 60 MG TABLET PO SCH ×3 (07:55→22:16)
[2017-10-27 08:25] LABS: BASO % 0.6 % (0-2.0); EOS % 1.6 % (0-4.5); HEMATOCRIT 40.6 % (35.4-49); HEMOGLOBIN 13.5 GM/dL (11.7-16.9); LYMPH % 19.5 % (8-40); MCH 28.4 pg (25.7-33.7); MCHC 33.4 g/dl (32.0-35.9); MEAN CELL VOLUME 85.1 fl (80-96); MEAN PLT VOLUME 7.9 fl (7.5-11.1); NEUT % 70.3 % (42.8-82.8); PLATELET COUNT 289 K/MM3 (134-434); RBC 4.76 M/mm3 (4.00-5.60); RDW 14.4 % (11.9-15.9); WHITE BLOOD COUNT 7.3 K/mm3 (4.0-10.0)
[2017-10-27 08:41] LABS: ANION GAP 8 MMOL/L (8-16); BLOOD UREA NITROGEN 17 mg/dL (7-18); CHLORIDE 102 mmol/L (98-107); CO2 30 mmol/L (21-32); CREATININE 0.8 mg/dL (0.55-1.3); GLUCOSE,RANDOM 141 mg/dL (74-106); POTASSIUM 4.2 mmol/L (3.5-5.1); SODIUM 140 mmol/L (136-145)
[2017-10-27] MEDS: LOSARTAN POTASSIUM 50 MG TABLET (FP) PO SCH (10:34)
[2017-10-27] MEDS: NIFEdipine E.R 60 MG TABLET (UD) PO SCH (10:34)
[2017-10-27] MEDS: HYDROCHLOROTHIAZIDE 25 MG TABLET (FP) PO SCH (10:34)
[2017-10-27] MEDS: MUPIROCIN 2% TOPICAL OINTMENT 22 GM TUBE TP SCH (10:35)
[2017-10-27] MEDS: azaTHIOprine 50 MG TABLET PO SCH ×2 (10:35→22:16)
[2017-10-27] MEDS ORDERED: INSULIN (NOVOLOG) ASPART 100 UNITS/ML 10ML VIAL ONE (12:18)
[2017-10-27] MEDS: INSULIN SLIDING SCALE (NOVOLOG) 1 VIAL SQ SCH (12:21)
--- NOTE | 2017-10-27 15:30 | PN ---
Progress Note (short form) - Note Progress Note: abnormal xray noted MRI noted +soft tissue swelling, mild BM edema noted he reports there was never any drainage from the foot Vital Signs Period Temp Pulse Resp BP Sys/Cortez Pulse Ox Last 24 Hr 97.4 F-98.9 F 54-71 17- 117-145/58-79 95 cor-rrr lungs clear abd soft,nt ext still with erythema of the foot, less erythema of the anterior amezcau CBC, BMP 10/27/17 07:35 10/27/17 07:35 Microbiology 10/24/17 19:30 Wound Gram Stain - Final 10/24/17 19:30 Wound Wound Culture - Preliminary Staphylococcus Aureus 10/24/17 22:00 Blood - Peripheral Venous Blood Culture - Preliminary NO GROWTH OBTAINED AFTER 48 HOURS, INCUBATION TO CONTINUE FOR 3 DAYS. 10/24/17 20:45 Blood - Peripheral Venous Blood Culture - Preliminary NO GROWTH OBTAINED AFTER 48 HOURS, INCUBATION TO CONTINUE FOR 3 DAYS. imp/reccd cellulitis will discuss MRI with podiatry repeat esr/crp continue vanco/azactam diabetes MG penicillin allergy-since childhood Problem List - Problems (1) Cellulitis Code(s): L03.90 - CELLULITIS, UNSPECIFIED (2) Diabetes Code(s): E11.9 - TYPE 2 DIABETES MELLITUS WITHOUT COMPLICATIONS (3) Myasthenia gravis Code(s): G70.00 - MYASTHENIA GRAVIS WITHOUT (ACUTE) EXACERBATION (4) Penicillin allergy Code(s): Z88.0 - ALLERGY STATUS TO PENICILLIN
--- NOTE | 2017-10-27 15:43 | PN ---
Physical Exam: SUBJECTIVE: Patient seen and examined at bedside this morning. No acute overnight events. Patient denies any acute complaints this morning. Admits continued improvement in erythema and swelling of anterior leg. Denies pain, headache, fevers, chills, shortness of breath, chest pain, palpitations, abdominal pain, nausea, vomiting, diarrhea. OBJECTIVE: Vital Signs Period Temp Pulse Resp BP Sys/Cortez Pulse Ox Last 24 Hr 97.4 F-98.9 F 54-71 17-22 117-145/58-79 95 GENERAL: Awake, alert, and fully oriented, in no acute distress. HEAD: Normocephalic, atraumatic EYES: Pupils equal, round and reactive to light, extraocular movements intact, sclera anicteric, conjunctiva clear. EARS, NOSE, THROAT: Oropharynx clear without exudates. Moist mucous membranes. NECK: Normal range of motion, supple without lymphadenopathy. LUNGS: Breath sounds equal, clear to auscultation bilaterally. No wheezes, and no crackles. No accessory muscle use. HEART: Regular rate and rhythm, normal S1 and S2 without murmur, rub or gallop. ABDOMEN: Obese. Soft, nontender, not distended, normoactive bowel sounds, no guarding, no rebound. No hepatomegaly or splenomegaly appreciated. UPPER EXTREMITIES: 2+ pulses, warm. Strength 5/5 in flexion, extension, abduction, adduction B/L LOWER EXTREMITIES: RLE amputation site debredied. 1+ pitting edema right lower extremity, tense and firm. Scar from right great toe amputation still appears cobbled, with erythema progressing proximally around foot and superiorly at anterior leg. Nontender to palpation. No drainage expressed. Swelling and erythema diminishing from outlined border. NEUROLOGICAL: Cranial nerves II-XII intact. Normal speech. No gross focal deficits. Sensation intact B/L upper and lower extremities. PSYCHIATRIC: Cooperative. Good eye contact. Appropriate mood and affect. SKIN: Erythema and callor at right lower extremity. Laboratory Results - last 24 hr 10/26/17 10/26/17 10/27/17 17:28 21:32 00:49 WBC RBC Hgb Hct MCV MCH MCHC RDW Plt Count MPV Absolute Neuts (auto) Neutrophils % Lymphocytes % Monocytes % Eosinophils % Basophils % Nucleated RBC % Sodium Potassium Chloride Carbon Dioxide Anion Gap BUN Creatinine Creat Clearance w eGFR POC Glucometer 307 264 Random Glucose Calcium Vancomycin Pre-Dose 11.2 L 10/27/17 10/27/17 10/27/17 06:51 07:35 07:35 WBC 7.3 RBC 4.76 Hgb 13.5 Hct 40.6 MCV 85.1 MCH 28.4 MCHC 33.4 RDW 14.4 Plt Count 289 MPV 7.9 Absolute Neuts (auto) 5.1 Neutrophils % 70.3 Lymphocytes % 19.5 Monocytes % 8.0 Eosinophils % 1.6 Basophils % 0.6 Nucleated RBC % 0 Sodium 140 Potassium 4.2 Chloride 102 Carbon Dioxide 30 Anion Gap 8 BUN 17 Creatinine 0.8 Creat Clearance w eGFR > 60 POC Glucometer 159 Random Glucose 141 H Calcium 10.0 Vancomycin Pre-Dose 10/27/17 12:15 WBC RBC Hgb Hct MCV MCH MCHC RDW Plt Count MPV Absolute Neuts (auto) Neutrophils % Lymphocytes % Monocytes % Eosinophils % Basophils % Nucleated RBC % Sodium Potassium Chloride Carbon Dioxide Anion Gap BUN Creatinine Creat Clearance w eGFR POC Glucometer 258 Random Glucose Calcium Vancomycin Pre-Dose Active Medications Generic Name Dose Route Start Last Admin Trade Name Freq PRN Reason Stop Dose Admin Atorvastatin Calcium 20 mg 10/24/17 22:00 10/26/17 21:33 Lipitor - PO 20 mg HS JUSTINE Administration Azathioprine 100 mg 10/25/17 10:00 10/27/17 10:35 Imuran - PO 100 mg DAILY JUSTINE Administration Azathioprine 50 mg 10/25/17 22:00 10/26/17 22:42 Imuran - PO 50 mg HS JUSTINE Administration Heparin Sodium (Porcine) 5,000 unit 10/24/17 22:00 10/27/17 14:31 Heparin - SQ 5,000 unit TID JUSTINE Administration Hydrochlorothiazide 25 mg 10/25/17 10:00 10/27/17 10:34 Hctz - PO 25 mg DAILY JUSTINE Administration Vancomycin HCl 1,250 mg/ 250 mls @ 166.667 mls/hr 10/25/17 13:00 10/27/17 14: 31 Dextrose IVPB 166.667 mls/hr BID@0100,1300 JUSTINE Administration Protocol Aztreonam 1 gm/ Dextrose 50 mls @ 100 mls/hr 10/25/17 12:30 10/27/17 10:35 IVPB 100 mls/hr Q8H-IV JUSTINE Administration Protocol Insulin Aspart 30 units 10/25/17 16:30 10/27/17 07:54 Novolog Mix 70/30 Vial SQ 30 unit BIDAC JUSTINE Administration Insulin Aspart 1 vial 10/26/17 11:30 10/27/17 12:21 Novolog Vial Sliding Scale - SQ 8 units 1130 JUSTINE Administration Protocol Losartan Potassium 100 mg 10/25/17 10:00 10/27/17 10:34 Cozaar - PO 100 mg DAILY JUSTINE Administration Metoprolol Succinate 200 mg 10/25/17 10:00 10/27/17 10:34 Toprol Xl - PO 200 mg DAILY JUSTINE Administration Mupirocin 1 applic 10/26/17 10:00 10/27/17 10:35 Bactroban 2% Ointment - TP 1 applic DAILY JUSTINE Administration Nifedipine 120 mg 10/25/17 10:00 10/27/17 10:34 Procardia Xl - PO 120 mg DAILY JUSTINE Administration Nortriptyline HCl 10 mg 10/24/17 22:00 10/26/17 21:34 Pamelor - PO 10 mg HS JUSTINE Administration Pyridostigmine [place] 60 mg 10/24/17 22:00 10/27/17 14:48 Mestinon - PO 60 mg TID JUSTINE Administration Tamsulosin HCl 0.4 mg 10/24/17 22:00 10/26/17 21:33 Flomax - PO 0.4 mg HS JUSTINE Administration IMAGING Right lower extremity duplex venous ultrasound: No evidence of DVT. No superficial thrombophlebitis. Xray right foot: medial distal first metatarsal periosteal elevation without gross erosion. MRI right lower extremity: Subcutaneous edema and skin thickening suggestive for cellulitis. There is questionable bone marrow edema at first metatarsal, and osteomyelitis cannot be ruled out. ASSESSMENT/PLAN: Patient is a 62 year old male with history significant for diabetes s/p amputation of right great toe, hypertension, myasthenia gravis, coronary artery disease s/p 1 stent, presents with complaint of painless redness and swelling of his right foot for the past month. Cellulitis, r/o osteomyelitis -Erytehama and swelling improving. Patient afebrile, without white count. -MRI cannot exclude osteomyelitis. -ID consult (Dr. Hooker) appreciated: Will discuss MRI results with unified communications architect. Vancomycin 1250mg IV BID (day 3) Aztreonam 1000mg IV Q8H (day 2) -Vancomycin trough: 11.2 -Blood cultures: preliminary reading negative at 48 hours -Wound cultures preliminary reading: Staph Aureus -Calender Let Off Operator consult (Dr. 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 Myasthenia Gravis -Azathioprine 75mg PO BID -Pyridostigmine 60mg PO TID HTN -Nifedipine 120mg PO QD -Metoprolol succinate 200mg PO QD -Losartan 100mg PO QD -Hydrochlorothiazide 25mg PO QD DM -Novolog 70/30 30mg BID -ISS for lunch time only. -BGM ACHS -Continue Nortryptyline 10mg PO QHS for neuropathy CAD -Continue Aspirin 81 mg PO HLD -Atorvastatin 20mg PO HS BPH -Tamsulosin 0.4mg PO HS FEN -No IV fluids. Encourage judicious oral hydration -Follow CMP -Diabetic, salt controlled diet Prophylaxis -Heparin 5000units subq TID Disposition -Continue care in medical-surgical floor for IV antibiotics. Visit type - Emergency Visit Emergency Visit: Yes ED Registration Date: 10/24/17 Care time: The patient presented to the Emergency Department on the above date and was hospitalized for further evaluation of their emergent condition. - New Patient This patient is new to me today: No - Critical Care Critical Care patient: No - Discharge Referral Referred to [facility] No
--- NOTE | 2017-10-27 18:53 | PN ---
Teaching Attending Note Name of Resident: Charles Trivedi ATTENDING PHYSICIAN STATEMENT I saw and evaluated the patient. I reviewed the resident's note and discussed the case with the resident. I agree with the resident's findings and plan as documented. SUBJECTIVE: No fever or chills. No abd pain. foot pain is better . OBJECTIVE: NAD Cv: RRR Lungs: CTAB Ext : R dorsal foot with erythema and increased warmth. erythema on amezcua is better. R big toe amputation with no discharge ASSESSMENT AND PLAN: 62 y/o man withh/o diabetes s/p amputation of right great toe, hypertension, myasthenia gravis, coronary artery disease s/p stenting who presented with R Le erythema and edema , and was found to have cellulites 1- R lower ext cellulites: MRI reviewed. ? OM in distal 1st metarsal. ? bone marrow changes in third toe phalanges - cont azactam and vanco -will d/w Id and podiatry - follow blood cx . wound cx with MSSA 2- DM: - cont Novolog mix 30 BID -SSI for lunch . 3- HTN : cont meds 4- dispo : HLOC
[2017-10-27] MEDS: ATORVASTATIN CA 20 MG TABLET (FP) PO SCH (22:16)
[2017-10-27] MEDS: NORTRIPTYLINE HCL 10 MG CAPSULE PO SCH (22:16)
[2017-10-27] MEDS: TAMSULOSIN HCL 0.4 MG CAP.ER.24H (FP) PO SCH (22:16)
[2017-10-28] MEDS: AZTREONAM 1 GM in DEXTROSE 5%-WATER - 50 ML IVPB SCH ×2 (01:30→10:29)
[2017-10-28] MEDS: VANCOMYCIN 1,250 MG in DEXTROSE 5%-WATER - 250 ML IVPB SCH ×2 (03:30→18:40)
[2017-10-28] MEDS ORDERED: PT OWN MED DRAWER 7, Y5N ONE ×2 (04:42→21:33)
[2017-10-28] MEDS: HEPARIN NA (PORCINE) 5,000 UNITS/ML 1ML VIAL SQ SCH ×3 (06:52→21:59)
[2017-10-28] MEDS: PYRIDOSTIGMINE BROMIDE 60 MG TABLET PO SCH ×3 (06:52→22:00)
[2017-10-28 07:05] LABS: HEMATOCRIT 39.2 % (35.4-49); HEMOGLOBIN 13.2 GM/dL (11.7-16.9); MCH 28.4 pg (25.7-33.7); MCHC 33.7 g/dl (32.0-35.9); MEAN CELL VOLUME 84.1 fl (80-96); MEAN PLT VOLUME 7.9 fl (7.5-11.1); PLATELET COUNT 282 K/MM3 (134-434); RBC 4.66 M/mm3 (4.00-5.60); RDW 14.2 % (11.9-15.9); WHITE BLOOD COUNT 7.8 K/mm3 (4.0-10.0)
[2017-10-28] MEDS: INSULIN (NOVOLOG MIX 70/30) 100 UNITS/ML MDV SQ SCH ×2 (07:12→17:40)
[2017-10-28 07:32] LABS: ANION GAP 5 MMOL/L (8-16); BLOOD UREA NITROGEN 19 mg/dL (7-18); CALCIUM 8.8 mg/dL (8.5-10.1); CHLORIDE 102 mmol/L (98-107); CO2 29 mmol/L (21-32); CREATININE 0.9 mg/dL (0.55-1.3); GLUCOSE,RANDOM 146 mg/dL (74-106); SODIUM 136 mmol/L (136-145)
[2017-10-28] MEDS: MUPIROCIN 2% TOPICAL OINTMENT 22 GM TUBE TP SCH (10:30)
[2017-10-28] MEDS: HYDROCHLOROTHIAZIDE 25 MG TABLET (FP) PO SCH (10:31)
[2017-10-28] MEDS: LOSARTAN POTASSIUM 50 MG TABLET (FP) PO SCH (10:31)
[2017-10-28] MEDS: azaTHIOprine 50 MG TABLET PO SCH ×2 (10:32→22:01)
[2017-10-28] MEDS: NIFEdipine E.R 60 MG TABLET (UD) PO SCH (10:33)
--- NOTE | 2017-10-28 11:59 | PN ---
Physical Exam: SUBJECTIVE: Patient seen and examined at bedside this morning, resting comfortably in exam bed. Slept well overnight. Denies any acute overnight events , or any acute complaints this morning. Admits continued improvement in erythema and swelling of anterior leg. Denies pain or discharge from b/l legs. Denies headache, fevers, chills, shortness of breath, chest pain, palpitations, abdominal pain, nausea, vomiting, diarrhea. OBJECTIVE: Vital Signs Period Temp Pulse Resp BP Sys/Cortez Pulse Ox Last 24 Hr 97.7 F-98.3 F 59-77 17-20 122-149/67-77 98 GENERAL: Awake, alert, and fully oriented, in no acute distress. HEAD: Normocephalic, atraumatic EYES: Pupils equal, round and reactive to light, extraocular movements intact, sclera anicteric, conjunctiva clear. EARS, NOSE, THROAT: Oropharynx clear without exudates. Moist mucous membranes. NECK: Normal range of motion, supple without lymphadenopathy. LUNGS: Breath sounds equal, clear to auscultation bilaterally. No wheezes, and no crackles. No accessory muscle use. HEART: Regular rate and rhythm, normal S1 and S2 without murmur, rub or gallop. ABDOMEN: Obese. Soft, nontender, not distended, normoactive bowel sounds, no guarding, no rebound. No hepatomegaly or splenomegaly appreciated. UPPER EXTREMITIES: 2+ pulses, warm. Strength 5/5 in flexion, extension, abduction, adduction B/L LOWER EXTREMITIES: RLE amputation site debredied. 1+ pitting edema right lower extremity. Firmness resolving. Scar from right great toe amputation still appears cobbled, with erythema progressing proximally around foot and superiorly at anterior leg. Nontender to palpation. No drainage expressed. Swelling and erythema significantly diminishing from outlined border along anterior leg. NEUROLOGICAL: Cranial nerves II-XII intact. Normal speech. No gross focal deficits. Sensation intact B/L upper and lower extremities. PSYCHIATRIC: Cooperative. Good eye contact. Appropriate mood and affect. SKIN: Diminishing erythema at right lower extremity. Laboratory Results - last 24 hr 10/27/17 10/27/17 10/27/17 12:15 17:20 22:12 WBC RBC Hgb Hct MCV MCH MCHC RDW Plt Count MPV ESR Sodium Potassium Chloride Carbon Dioxide Anion Gap BUN Creatinine Creat Clearance w eGFR POC Glucometer 258 280 201 Random Glucose Calcium C-Reactive Protein 10/28/17 10/28/17 10/28/17 06:00 06:00 06:00 WBC 7.8 RBC 4.66 Hgb 13.2 Hct 39.2 MCV 84.1 MCH 28.4 MCHC 33.7 RDW 14.2 Plt Count 282 MPV 7.9 ESR 29 H Sodium 136 Potassium 4.0 Chloride 102 Carbon Dioxide 29 Anion Gap 5 L BUN 19 H Creatinine 0.9 Creat Clearance w eGFR > 60 POC Glucometer Random Glucose 146 H Calcium 8.8 C-Reactive Protein < 0.3 10/28/17 06:57 WBC RBC Hgb Hct MCV MCH MCHC RDW Plt Count MPV ESR Sodium Potassium Chloride Carbon Dioxide Anion Gap BUN Creatinine Creat Clearance w eGFR POC Glucometer 162 Random Glucose Calcium C-Reactive Protein Active Medications Generic Name Dose Route Start Last Admin Trade Name Freq PRN Reason Stop Dose Admin Atorvastatin Calcium 20 mg 10/24/17 22:00 10/27/17 22:16 Lipitor - PO 20 mg HS JUSTINE Administration Azathioprine 100 mg 10/25/17 10:00 10/28/17 10:32 Imuran - PO 100 mg DAILY JUSTINE Administration Azathioprine 50 mg 10/25/17 22:00 10/27/17 22:16 Imuran - PO 50 mg HS JUSTINE Administration Heparin Sodium (Porcine) 5,000 unit 10/24/17 22:00 10/28/17 06:52 Heparin - SQ 5,000 unit TID JUSTINE Administration Hydrochlorothiazide 25 mg 10/25/17 10:00 10/28/17 10:31 Hctz - PO 25 mg DAILY JUSTINE Administration Vancomycin HCl 1,250 mg/ 250 mls @ 166.667 mls/hr 10/25/17 13:00 10/28/17 03: 30 Dextrose IVPB 166.667 mls/hr BID@0100,1300 JUSTINE Administration Protocol Aztreonam 1 gm/ Dextrose 50 mls @ 100 mls/hr 10/25/17 12:30 10/28/17 10:29 IVPB 100 mls/hr Q8H-IV JUSTINE Administration Protocol Insulin Aspart 30 units 10/25/17 16:30 10/28/17 07:12 Novolog Mix 70/30 Vial SQ 30 unit BIDAC JUSTINE Administration Insulin Aspart 1 vial 10/26/17 11:30 10/27/17 12:21 Novolog Vial Sliding Scale - SQ 8 units 1130 JUSTINE Administration Protocol Losartan Potassium 100 mg 10/25/17 10:00 10/28/17 10:31 Cozaar - PO 100 mg DAILY JUSTINE Administration Metoprolol Succinate 200 mg 10/25/17 10:00 10/28/17 10:32 Toprol Xl - PO 200 mg DAILY JUSTINE Administration Mupirocin 1 applic 10/26/17 10:00 10/28/17 10:30 Bactroban 2% Ointment - TP 1 applic DAILY JUSTINE Administration Nifedipine 120 mg 10/25/17 10:00 10/28/17 10:33 Procardia Xl - PO 120 mg DAILY JUSTINE Administration Nortriptyline HCl 10 mg 10/24/17 22:00 10/27/17 22:16 Pamelor - PO 10 mg HS JUSTINE Administration Pyridostigmine [place] 60 mg 10/24/17 22:00 10/28/17 06:52 Mestinon - PO 60 mg TID JUSTINE Administration Tamsulosin HCl 0.4 mg 10/24/17 22:00 10/27/17 22:16 Flomax - PO 0.4 mg HS JUSTINE Administration IMAGING Right lower extremity duplex venous ultrasound: No evidence of DVT. No superficial thrombophlebitis. Xray right foot: medial distal first metatarsal periosteal elevation without gross erosion. MRI right lower extremity: Subcutaneous edema and skin thickening suggestive for cellulitis. There is questionable bone marrow edema at first metatarsal, and osteomyelitis cannot be ruled out. ASSESSMENT/PLAN: Patient is a 62 year old male with history significant for diabetes s/p amputation of right great toe, hypertension, myasthenia gravis, coronary artery disease s/p 1 stent, presents with complaint of painless redness and swelling of his right foot for the past month. Cellulitis, r/o osteomyelitis -Erythema and swelling improving. Patient afebrile, without white count. -MRI cannot exclude osteomyelitis. -ID consult (Dr. Hooker) appreciated: Will discuss MRI results with assistant professor of economics. Vancomycin, and Aztreonam discontinued Begin Ceftriaxone 2gm IV daily (day 1). Will observe closely for any allergic reaction given history of penicillin allergy. -Blood cultures: preliminary reading negative at 72 hours -Wound cultures: Staph Aureus (sensitive to Ceftriaxone). -Softball Core Molder consult (Dr. 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 Myasthenia Gravis -Azathioprine 75mg PO BID -Pyridostigmine 60mg PO TID HTN -Nifedipine 120mg PO QD -Metoprolol succinate 200mg PO QD -Losartan 100mg PO QD -Hydrochlorothiazide 25mg PO QD DM -Novolog 70/30 30mg BID -ISS for lunch time only. -BGM ACHS -Continue Nortryptyline 10mg PO QHS for neuropathy CAD -Continue Aspirin 81 mg PO HLD -Atorvastatin 20mg PO HS BPH -Tamsulosin 0.4mg PO HS FEN -No IV fluids. Encourage judicious oral hydration -Follow CMP -Diabetic, salt controlled diet Prophylaxis -Heparin 5000units subq TID Disposition -Continue care in medical-surgical floor for IV antibiotics. Visit type - Emergency Visit Emergency Visit: Yes ED Registration Date: 10/24/17 Care time: The patient presented to the Emergency Department on the above date and was hospitalized for further evaluation of their emergent condition. - New Patient This patient is new to me today: No - Critical Care Critical Care patient: No - Discharge Referral Referred to [facility] No
--- NOTE | 2017-10-28 13:31 | PN ---
Progress Note (short form) - Note Progress Note: abnormal xray noted MRI noted +soft tissue swelling, mild BM edema noted he reports there was never any drainage from the foot Vital Signs Period Temp Pulse Resp BP Sys/Cortez Pulse Ox Last 24 Hr 97.7 F-98.3 F 59-77 17-20 122-149/67-77 98 cor-rrr llung clear abd soft,nt ext less erythema of the foot and amezcua CBC, BMP 10/28/17 06:00 10/28/17 06:00 Microbiology 10/24/17 19:30 Wound Gram Stain - Final 10/24/17 19:30 Wound Wound Culture - Preliminary Staphylococcus Aureus 10/24/17 22:00 Blood - Peripheral Venous Blood Culture - Preliminary NO GROWTH OBTAINED AFTER 72 HOURS, INCUBATION TO CONTINUE FOR 2 DAYS. 10/24/17 20:45 Blood - Peripheral Venous Blood Culture - Preliminary NO GROWTH OBTAINED AFTER 72 HOURS, INCUBATION TO CONTINUE FOR 2 DAYS. Laboratory Tests 10/25/17 10/28/17 10/28/17 06:30 06:00 06:00 ESR 29 H C-Reactive Protein 1.4 H < 0.3 imp/reccd cellulitis will discuss MRI with podiatry repeat esr/crp-normal! will switch to rocephin for MSSA diabetes MG penicillin allergy-since childhood- it "ran through him", no history of anaphylaxis or rash d/w hospitalist Problem List - Problems (1) Cellulitis Code(s): L03.90 - CELLULITIS, UNSPECIFIED (2) Diabetes Code(s): E11.9 - TYPE 2 DIABETES MELLITUS WITHOUT COMPLICATIONS (3) Myasthenia gravis Code(s): G70.00 - MYASTHENIA GRAVIS WITHOUT (ACUTE) EXACERBATION (4) Penicillin allergy Code(s): Z88.0 - ALLERGY STATUS TO PENICILLIN
--- NOTE | 2017-10-28 13:46 | PN ---
Teaching Attending Note Name of Resident: Charles Trivedi ATTENDING PHYSICIAN STATEMENT I saw and evaluated the patient. I reviewed the resident's note and discussed the case with the resident. I agree with the resident's findings and plan as documented. SUBJECTIVE: No fever or chills. No abd apin, no SOB. R foot with no pain OBJECTIVE: NAD Cv: RRR Lungs: CTAB Ext : R dorsal foot with erythema and increased warmth. erythema on amezcua is better. R big toe amputation with no discharge ASSESSMENT AND PLAN: 62 y/o man withh/o diabetes s/p amputation of right great toe, hypertension, myasthenia gravis, coronary artery disease s/p stenting who presented with R Le erythema and edema , and was found to have cellulites 1- R lower ext cellulites: questionable OM - d/w ID , ceftriaxone - will evaluate foot on Monday to decide about next step 2- DM: - cont Novolog mix 30 BID -SSI for lunch . 3- HTN : cont meds 4- Dispo : HLOC
[2017-10-28] MEDS ORDERED: DEXTROSE 5%-WATER 100 ML IVPB ONE (13:47)
[2017-10-28] MEDS: CEFTRIAXONE 2 GM in DEXTROSE 5%-WATER 100 ML IVPB SCH (13:57)
[2017-10-28] MEDS ORDERED: INSULIN (NOVOLOG) ASPART 100 UNITS/ML 10ML VIAL ONE (14:08)
[2017-10-28] MEDS: INSULIN SLIDING SCALE (NOVOLOG) 1 VIAL SQ SCH (14:11)
[2017-10-28] MEDS: ATORVASTATIN CA 20 MG TABLET (FP) PO SCH (22:00)
[2017-10-28] MEDS: TAMSULOSIN HCL 0.4 MG CAP.ER.24H (FP) PO SCH (22:00)
[2017-10-28] MEDS: NORTRIPTYLINE HCL 10 MG CAPSULE PO SCH (22:00)
[2017-10-29] MEDS ORDERED: INSULIN (NOVOLOG MIX 70/30) 100 UNITS/ML MDV SQ ONE ×2 (06:16→07:52)
[2017-10-29] MEDS: INSULIN (NOVOLOG MIX 70/30) 100 UNITS/ML MDV SQ SCH ×2 (06:21→17:58)
[2017-10-29] MEDS: HEPARIN NA (PORCINE) 5,000 UNITS/ML 1ML VIAL SQ SCH ×3 (06:21→22:23)
[2017-10-29] MEDS: PYRIDOSTIGMINE BROMIDE 60 MG TABLET PO SCH ×3 (06:22→22:24)
[2017-10-29] MEDS ORDERED: PT OWN MED DRAWER 7, Y5N ONE (07:52)
[2017-10-29] MEDS ORDERED: DEXTROSE 5%-WATER 100 ML IVPB ONE (11:12)
[2017-10-29] MEDS: HYDROCHLOROTHIAZIDE 25 MG TABLET (FP) PO SCH (11:26)
[2017-10-29] MEDS: NIFEdipine E.R 60 MG TABLET (UD) PO SCH (11:26)
[2017-10-29] MEDS: LOSARTAN POTASSIUM 50 MG TABLET (FP) PO SCH (11:27)
[2017-10-29] MEDS: MUPIROCIN 2% TOPICAL OINTMENT 22 GM TUBE TP SCH (11:27)
[2017-10-29] MEDS: azaTHIOprine 50 MG TABLET PO SCH ×2 (11:28→22:24)
[2017-10-29] MEDS: CEFTRIAXONE 2 GM in DEXTROSE 5%-WATER 100 ML IVPB SCH (11:29)
[2017-10-29] MEDS: INSULIN SLIDING SCALE (NOVOLOG) 1 VIAL SQ SCH (11:47)
--- NOTE | 2017-10-29 15:00 | PN ---
Progress Note (short form) - Note Progress Note: Subjective: no fever or chills. No abd pain. no SOB . foot feels better Objective: Vital Signs: Last Vital Signs Temp Pulse Resp BP Pulse Ox 97.6 F 66 18 147/95 100 10/29/17 06:00 10/29/17 06:00 10/29/17 06:00 10/29/17 06:00 10/28/17 09:00 Laboratory Results - last 24 hr 10/28/17 10/28/17 10/29/17 16:48 21:59 06:20 POC Glucometer 264 198 166 10/29/17 11:41 POC Glucometer 250 Physical Exam: NAD Cv: RRR Lungs: CTAB Ext: R dorsal foot with erythema and increased warmth. erythema on amezcua is better. R big toe amputation with no discharge ASSESSMENT AND PLAN: 62 y/o man with h/o diabetes s/p amputation of right great toe, hypertension, myasthenia gravis, coronary artery disease s/p stenting who presented with R Le erythema and edema , and was found to have cellulites 1- R lower ext cellulites: questionable OM -ceftriaxone - will evaluate foot on Monday to decide about next step 2- DM: - cont Novolog mix 30 BID -SSI for lunch . 3- HTN : cont meds 4- Dispo : HLOC Visit type - Emergency Visit Emergency Visit: Yes ED Registration Date: 10/24/17 Care time: The patient presented to the Emergency Department on the above date and was hospitalized for further evaluation of their emergent condition. - New Patient This patient is new to me today: No - Critical Care Critical Care patient: No
[2017-10-29] MEDS: TAMSULOSIN HCL 0.4 MG CAP.ER.24H (FP) PO SCH (22:23)
[2017-10-29] MEDS: ATORVASTATIN CA 20 MG TABLET (FP) PO SCH (22:24)
[2017-10-29] MEDS: NORTRIPTYLINE HCL 10 MG CAPSULE PO SCH (22:24)
[2017-10-30] MEDS: PYRIDOSTIGMINE BROMIDE 60 MG TABLET PO SCH ×3 (06:20→22:23)
[2017-10-30] MEDS: INSULIN (NOVOLOG MIX 70/30) 100 UNITS/ML MDV SQ SCH ×2 (06:20→17:21)
[2017-10-30] MEDS: HEPARIN NA (PORCINE) 5,000 UNITS/ML 1ML VIAL SQ SCH ×3 (06:20→22:22)
[2017-10-30] MEDS ORDERED: INSULIN (NOVOLOG) ASPART 100 UNITS/ML 10ML VIAL ONE (06:35)
[2017-10-30] MEDS ORDERED: INSULIN (NOVOLOG MIX 70/30) 100 UNITS/ML MDV SQ ONE (06:36)
[2017-10-30] MEDS ORDERED: PT OWN MED DRAWER 7, Y5N ONE ×2 (06:36→10:38)
[2017-10-30] MEDS ORDERED: DEXTROSE 5%-WATER 100 ML IVPB ONE (10:38)
[2017-10-30] MEDS: CEFTRIAXONE 2 GM in DEXTROSE 5%-WATER 100 ML IVPB SCH (10:55)
[2017-10-30] MEDS: LOSARTAN POTASSIUM 50 MG TABLET (FP) PO SCH (10:55)
[2017-10-30] MEDS: NIFEdipine E.R 60 MG TABLET (UD) PO SCH (10:55)
[2017-10-30] MEDS: HYDROCHLOROTHIAZIDE 25 MG TABLET (FP) PO SCH (10:55)
[2017-10-30] MEDS: azaTHIOprine 50 MG TABLET PO SCH ×2 (10:56→22:23)
[2017-10-30] MEDS: MUPIROCIN 2% TOPICAL OINTMENT 22 GM TUBE TP SCH (10:57)
[2017-10-30] MEDS ORDERED: PICC LINE 8 ML FLUSH PROTOCOL IVPUSH PRN (13:17)
--- NOTE | 2017-10-30 13:44 | PN ---
Progress Note (short form) - Note Progress Note: abnormal xray noted MRI noted +soft tissue swelling, mild BM edema noted Vital Signs Period Temp Pulse Resp BP Sys/Cortez Pulse Ox Last 24 Hr 97.7 F-98.5 F 57-75 18-19 115-136/59-80 100 cor-rrr lungs clear abd soft,nt ext +erythema of the foot CBC, BMP 10/28/17 06:00 10/28/17 06:00 Laboratory Tests 10/25/17 10/28/17 10/28/17 06:30 06:00 06:00 ESR 29 H C-Reactive Protein 1.4 H < 0.3 imp/reccd persistent cellulitis day #3 rocephin, cannot r/o early osteomyelitis by MRI suggest we place picc line and treat with rocephin for 5 more weeks can f/u at wound care can f/u at our office with Dr Shaun castro MG penicillin allergy-since childhood- it "ran through him", no history of anaphylaxis or rash d/w resident Problem List - Problems (1) Cellulitis Code(s): L03.90 - CELLULITIS, UNSPECIFIED (2) Diabetes Code(s): E11.9 - TYPE 2 DIABETES MELLITUS WITHOUT COMPLICATIONS (3) Myasthenia gravis Code(s): G70.00 - MYASTHENIA GRAVIS WITHOUT (ACUTE) EXACERBATION (4) Penicillin allergy Code(s): Z88.0 - ALLERGY STATUS TO PENICILLIN
--- NOTE | 2017-10-30 14:46 | PN ---
Teaching Attending Note Name of Resident: Charles Trivedi ATTENDING PHYSICIAN STATEMENT I saw and evaluated the patient. I reviewed the resident's note and discussed the case with the resident. I agree with the resident's findings and plan as documented. SUBJECTIVE: no fever or chills . no pain in foot OBJECTIVE: NAD Cv: RRR Lungs: CTAB Ext: R dorsal foot with erythema and increased warmth. erythema on amezcua has resolved . slight hyperpigmentation . R big toe amputation with no discharge ASSESSMENT AND PLAN: 62 y/o man with h/o diabetes s/p amputation of right great toe, hypertension, myasthenia gravis, coronary artery disease s/p stenting who presented with R Le erythema and edema , and was found to have cellulites 1- R lower ext cellulites: questionable OM - ID recs is ceftriaxone for OM . patient refused PICC and treatment and prefer to follow with his doctors - d/w ID . cont ceftriaxoen fro about 48 hours and reevaluate 2- DM: - cont Novolog mix 30 BID -SSI for lunch . 3- HTN : cont meds 4- Dispo : HLOC
[2017-10-30] MEDS: INSULIN SLIDING SCALE (NOVOLOG) 1 VIAL SQ SCH (14:59)
--- NOTE | 2017-10-30 15:56 | PN ---
Physical Exam: SUBJECTIVE: Patient seen and examined at bedside this morning, resting comfortably in exam bed. Denies any acute overnight events, or any acute complaints this morning. Admits continued improvement in erythema and swelling of anterior leg. Denies pain or discharge from b/l legs. Denies headache, fevers , chills, shortness of breath, chest pain, palpitations, abdominal pain, nausea , vomiting, diarrhea. Discussed with patient regarding PICC line, however he does not want at this time, and instead wants to follow up outpatient, with oral antibiotics. OBJECTIVE: Vital Signs Period Temp Pulse Resp BP Sys/Cortez Pulse Ox Last 24 Hr 97.7 F-98.5 F 57-75 18-20 109-136/59-80 100 GENERAL: Awake, alert, and fully oriented, in no acute distress. HEAD: Normocephalic, atraumatic EYES: Pupils equal, round and reactive to light, extraocular movements intact, sclera anicteric, conjunctiva clear. EARS, NOSE, THROAT: Oropharynx clear without exudates. Moist mucous membranes. NECK: Normal range of motion, supple without lymphadenopathy. LUNGS: Breath sounds equal, clear to auscultation bilaterally. No wheezes, and no crackles. No accessory muscle use. HEART: Regular rate and rhythm, normal S1 and S2 without murmur, rub or gallop. ABDOMEN: Obese. Soft, nontender, not distended, normoactive bowel sounds, no guarding, no rebound. No hepatomegaly or splenomegaly appreciated. UPPER EXTREMITIES: 2+ pulses, warm. Strength 5/5 in flexion, extension, abduction, adduction B/L LOWER EXTREMITIES: RLE amputation site debredied. 1+ pitting edema right lower extremity. Firmness resolving. Scar from right great toe amputation still appears cobbled, with erythema progressing proximally around foot and superiorly at anterior leg. Nontender to palpation. No drainage expressed. Swelling and erythema significantly diminishing from outlined border along anterior leg. NEUROLOGICAL: Cranial nerves II-XII intact. Normal speech. No gross focal deficits. Sensation intact B/L upper and lower extremities. PSYCHIATRIC: Cooperative. Good eye contact. Appropriate mood and affect. SKIN: Diminishing erythema at right lower extremity. Laboratory Results - last 24 hr 10/29/17 10/29/17 10/30/17 17:57 22:23 06:19 POC Glucometer 372 208 151 10/30/17 12:41 POC Glucometer 194 Active Medications Generic Name Dose Route Start Last Admin Trade Name Freq PRN Reason Stop Dose Admin Atorvastatin Calcium 20 mg 10/24/17 22:00 10/29/17 22:24 Lipitor - PO 20 mg HS JUSTINE Administration Azathioprine 100 mg 10/25/17 10:00 10/30/17 10:56 Imuran - PO 100 mg DAILY JUSTINE Administration Azathioprine 50 mg 10/25/17 22:00 10/29/17 22:24 Imuran - PO 50 mg HS JUSTINE Administration Heparin Sodium (Porcine) 5,000 unit 10/24/17 22:00 10/30/17 15:09 Heparin - SQ 5,000 unit TID JUSTINE Administration Hydrochlorothiazide 25 mg 10/25/17 10:00 10/30/17 10:55 Hctz - PO 25 mg DAILY JUSTINE Administration IV Flush 8 ml 10/30/17 13:17 Picc Line Flush IVPUSH PRN PRN Protocol Ceftriaxone Sodium 2 gm/ 100 mls @ 200 mls/hr 10/28/17 13:45 10/30/17 10:55 Dextrose IVPB 200 mls/hr DAILY JUSTINE Administration Protocol Insulin Aspart 30 units 10/25/17 16:30 10/30/17 06:20 Novolog Mix 70/30 Vial SQ 30 unit BIDAC JUSTINE Administration Insulin Aspart 1 vial 10/26/17 11:30 10/30/17 14:59 Novolog Vial Sliding Scale - SQ Not Given 1130 JUSTINE Protocol Losartan Potassium 100 mg 10/25/17 10:00 10/30/17 10:55 Cozaar - PO 100 mg DAILY JUSTINE Administration Metoprolol Succinate 200 mg 10/25/17 10:00 10/30/17 10:56 Toprol Xl - PO 200 mg DAILY JUSTINE Administration Mupirocin 1 applic 10/26/17 10:00 10/30/17 10:57 Bactroban 2% Ointment - TP 1 applic DAILY JUSTINE Administration Nifedipine 120 mg 10/25/17 10:00 10/30/17 10:55 Procardia Xl - PO 120 mg DAILY JUSTINE Administration Nortriptyline HCl 10 mg 10/24/17 22:00 10/29/17 22:24 Pamelor - PO 10 mg HS JUSTINE Administration Pyridostigmine [place] 60 mg 10/24/17 22:00 10/30/17 15:09 Mestinon - PO 60 mg TID JUSTINE Administration Tamsulosin HCl 0.4 mg 10/24/17 22:00 10/29/17 22:23 Flomax - PO 0.4 mg HS JUSTINE Administration IMAGING Right lower extremity duplex venous ultrasound: No evidence of DVT. No superficial thrombophlebitis. Xray right foot: medial distal first metatarsal periosteal elevation without gross erosion. MRI right lower extremity: Subcutaneous edema and skin thickening suggestive for cellulitis. There is questionable bone marrow edema at first metatarsal, and osteomyelitis cannot be ruled out. ASSESSMENT/PLAN: Patient is a 62 year old male with history significant for diabetes s/p amputation of right great toe, hypertension, myasthenia gravis, coronary artery disease s/p 1 stent, presents with complaint of painless redness and swelling of his right foot for the past month. Cellulitis, r/o osteomyelitis -Erythema and swelling improving. Patient continues to remain afebrile, without white count. -MRI cannot exclude osteomyelitis. -ID consult (Dr. Hooker) appreciated: PICC line and Ceftriaxone IV for 5 weeks. However, after discussion with patient, he does not want PICC line at this time. Will continue to monitor on IV antibiotics. Begin Ceftriaxone 2gm IV daily (day 3). -Blood cultures: negative -Wound cultures: Staph Aureus (sensitive to Ceftriaxone). -[employer] consult (Dr. 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 Myasthenia Gravis -Azathioprine 75mg PO BID -Pyridostigmine 60mg PO TID HTN -Nifedipine 120mg PO QD -Metoprolol succinate 200mg PO QD -Losartan 100mg PO QD -Hydrochlorothiazide 25mg PO QD DM -Novolog 70/30 30mg BID -ISS for lunch time only. -BGM ACHS -Continue Nortryptyline 10mg PO QHS for neuropathy CAD -Continue Aspirin 81 mg PO HLD -Atorvastatin 20mg PO HS BPH -Tamsulosin 0.4mg PO HS FEN -No IV fluids. Encourage judicious oral hydration -Follow CMP -Diabetic, salt controlled diet Prophylaxis -Heparin 5000units subq TID Disposition -Continue care in medical-surgical floor for IV antibiotics. Visit type - Emergency Visit Emergency Visit: Yes ED Registration Date: 10/24/17 Care time: The patient presented to the Emergency Department on the above date and was hospitalized for further evaluation of their emergent condition. - New Patient This patient is new to me today: No - Critical Care Critical Care patient: No - Discharge Referral Referred to [facility] Med P.C.: No
[2017-10-30] MEDS: TAMSULOSIN HCL 0.4 MG CAP.ER.24H (FP) PO SCH (22:22)
[2017-10-30] MEDS: ATORVASTATIN CA 20 MG TABLET (FP) PO SCH (22:23)
[2017-10-30] MEDS: NORTRIPTYLINE HCL 10 MG CAPSULE PO SCH (22:24)
[2017-10-31] MEDS: HEPARIN NA (PORCINE) 5,000 UNITS/ML 1ML VIAL SQ SCH ×2 (06:32→14:06)
[2017-10-31] MEDS: INSULIN (NOVOLOG MIX 70/30) 100 UNITS/ML MDV SQ SCH ×2 (06:32→17:33)
[2017-10-31] MEDS: PYRIDOSTIGMINE BROMIDE 60 MG TABLET PO SCH ×3 (06:33→21:39)
[2017-10-31] MEDS ORDERED: INSULIN (LEVEMIR) 100 UNITS/ML UNITS SQ ONE (06:38)
[2017-10-31] MEDS ORDERED: INSULIN (NOVOLOG MIX 70/30) 100 UNITS/ML MDV SQ ONE ×3 (06:39→17:39)
[2017-10-31] MEDS ORDERED: INSULIN (NOVOLOG) ASPART 100 UNITS/ML 10ML VIAL ONE ×5 (06:39→17:27)
[2017-10-31 07:56] LABS: EOS % 1.2 % (0-4.5); HEMATOCRIT 40.3 % (35.4-49); HEMOGLOBIN 13.3 GM/dL (11.7-16.9); LYMPH % 17.5 % (8-40); MCH 28.2 pg (25.7-33.7); MCHC 33.1 g/dl (32.0-35.9); MEAN CELL VOLUME 85.3 fl (80-96); MEAN PLT VOLUME 8.5 fl (7.5-11.1); MONO % 8.2 % (3.8-10.2); NEUT % 72.1 % (42.8-82.8); PLATELET COUNT 297 K/MM3 (134-434); RBC 4.72 M/mm3 (4.00-5.60); RDW 14.9 % (11.9-15.9); WHITE BLOOD COUNT 9.2 K/mm3 (4.0-10.0)
[2017-10-31 08:58] LABS: ANION GAP 9 MMOL/L (8-16); BLOOD UREA NITROGEN 22 mg/dL (7-18); CALCIUM 9.5 mg/dL (8.5-10.1); CHLORIDE 102 mmol/L (98-107); CO2 28 mmol/L (21-32); CREATININE 0.9 mg/dL (0.55-1.3); GLUCOSE,RANDOM 178 mg/dL (74-106); POTASSIUM 4.4 mmol/L (3.5-5.1); SODIUM 139 mmol/L (136-145)
[2017-10-31] MEDS ORDERED: DEXTROSE 5%-WATER 100 ML IVPB ONE (09:48)
[2017-10-31] MEDS ORDERED: PT OWN MED DRAWER 7, Y5N ONE ×6 (09:48→21:22)
[2017-10-31] MEDS: NIFEdipine E.R 60 MG TABLET (UD) PO SCH (10:13)
[2017-10-31] MEDS: LOSARTAN POTASSIUM 50 MG TABLET (FP) PO SCH (10:13)
[2017-10-31] MEDS: HYDROCHLOROTHIAZIDE 25 MG TABLET (FP) PO SCH (10:13)
[2017-10-31] MEDS: azaTHIOprine 50 MG TABLET PO SCH ×2 (10:15→21:39)
[2017-10-31] MEDS: MUPIROCIN 2% TOPICAL OINTMENT 22 GM TUBE TP SCH (10:15)
[2017-10-31] MEDS: CEFTRIAXONE 2 GM in DEXTROSE 5%-WATER 100 ML IVPB SCH (10:30)
[2017-10-31] MEDS: INSULIN SLIDING SCALE (NOVOLOG) 1 VIAL SQ SCH ×2 (12:09→22:59)
--- NOTE | 2017-10-31 13:22 | PN ---
Progress Note (short form) - Note Progress Note: Podiatry F/U; Seen/evaluated at bedside NAD. Pain controlled, denies F/V/N/C/SOB/CP. Afebrile. 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 ESR: 29 Imp: 62 year old DM M with R hallux amputation stump ulcer, stable 1. Local wound care with bactroban 2. Abx per infectious diseases. Discussed treatment options with patient and ID. Do not feel that bone biopsy would benefit patient and treatment would be the same, which is IV therapy. 3. Patient will f/u with me in wound healing center next week. [phone]. Abran Souza DPM
--- NOTE | 2017-10-31 16:20 | PN ---
Teaching Attending Note Name of Resident: Charles Trivedi ATTENDING PHYSICIAN STATEMENT I saw and evaluated the patient. I reviewed the resident's note and discussed the case with the resident. I agree with the resident's findings and plan as documented. SUBJECTIVE: No fever or chills OBJECTIVE: NAD Cv: RRR Lungs: CTAB Ext: R dorsal foot erythema and edema are better today. No tenderness ASSESSMENT AND PLAN: 62 y/o man with h/o diabetes s/p amputation of right great toe, hypertension, myasthenia gravis, coronary artery disease s/p stenting who presented with R Le erythema and edema , and was found to have cellulites 1- R lower ext cellulites: possible OM -cont ceftriaxone. cont to refuse PICC and prolonged IV abx for OM - will d/w ID 2- DM: - cont Novolog mix 30 BID -SSI for lunch . 3- HTN : cont meds
--- NOTE | 2017-10-31 18:21 | PN ---
Progress Note (short form) - Note Progress Note: nad feels well Vital Signs Period Temp Pulse Resp BP Sys/Cortez Pulse Ox Last 24 Hr 97.4 F-98.3 F 62-70 18-20 111-142/64-75 98-100 cor-rrr lungs clear less erythema of the foot CBC, BMP 10/31/17 06:50 10/31/17 06:50 Laboratory Tests 10/25/17 10/28/17 10/28/17 06:30 06:00 06:00 ESR 29 H C-Reactive Protein 1.4 H < 0.3 imp/reccd persistent cellulitis day #4 rocephin, cannot r/o early osteomyelitis by MRI suggest we place picc line and treat with rocephin for 5 more weeks patient and brother are refusing picc line, I will call brother in am to discuss i diabetes MG penicillin allergy-since childhood- it "ran through him", no history of anaphylaxis or rash Problem List - Problems (1) Cellulitis Code(s): L03.90 - CELLULITIS, UNSPECIFIED (2) Diabetes Code(s): E11.9 - TYPE 2 DIABETES MELLITUS WITHOUT COMPLICATIONS (3) Myasthenia gravis Code(s): G70.00 - MYASTHENIA GRAVIS WITHOUT (ACUTE) EXACERBATION (4) Penicillin allergy Code(s): Z88.0 - ALLERGY STATUS TO PENICILLIN
--- NOTE | 2017-10-31 18:45 | PN ---
Physical Exam: SUBJECTIVE: Patient seen and examined at bedside this morning, resting comfortably in exam bed. Denies any acute overnight events, or any acute complaints this morning. Admits continued improvement in erythema and swelling of anterior leg. Denies pain or discharge from b/l legs. Denies headache, fevers , chills, shortness of breath, chest pain, palpitations, abdominal pain, nausea , vomiting, diarrhea. Patient still does not want PICC line, and instead wants to follow up outpatient, with oral antibiotics. OBJECTIVE: Vital Signs Period Temp Pulse Resp BP Sys/Cortez Pulse Ox Last 24 Hr 97.4 F-98.3 F 62-70 18-20 111-142/64-75 98-100 GENERAL: Awake, alert, and fully oriented, in no acute distress. HEAD: Normocephalic, atraumatic EYES: Pupils equal, round and reactive to light, extraocular movements intact, sclera anicteric, conjunctiva clear. EARS, NOSE, THROAT: Oropharynx clear without exudates. Moist mucous membranes. NECK: Normal range of motion, supple without lymphadenopathy. LUNGS: Breath sounds equal, clear to auscultation bilaterally. No wheezes, and no crackles. No accessory muscle use. HEART: Regular rate and rhythm, normal S1 and S2 without murmur, rub or gallop. ABDOMEN: Obese. Soft, nontender, not distended, normoactive bowel sounds, no guarding, no rebound. No hepatomegaly or splenomegaly appreciated. UPPER EXTREMITIES: 2+ pulses, warm. Strength 5/5 in flexion, extension, abduction, adduction B/L LOWER EXTREMITIES: RLE amputation site debredied. 1+ pitting edema right lower extremity. Firmness resolving. Scar from right great toe amputation still appears cobbled, with erythema progressing proximally around foot and superiorly at anterior leg. Nontender to palpation. No drainage expressed. Swelling and erythema significantly diminishing from outlined border along anterior leg. NEUROLOGICAL: Cranial nerves II-XII intact. Normal speech. No gross focal deficits. Sensation intact B/L upper and lower extremities. PSYCHIATRIC: Cooperative. Good eye contact. Appropriate mood and affect. SKIN: Diminishing erythema at right lower extremity. Laboratory Results - last 24 hr 10/30/17 10/31/17 10/31/17 22:20 06:31 06:50 WBC 9.2 RBC 4.72 Hgb 13.3 Hct 40.3 MCV 85.3 MCH 28.2 MCHC 33.1 RDW 14.9 Plt Count 297 MPV 8.5 Absolute Neuts (auto) 6.7 Neutrophils % 72.1 Lymphocytes % 17.5 Monocytes % 8.2 Eosinophils % 1.2 Basophils % 1.0 Nucleated RBC % 0 Sodium Potassium Chloride Carbon Dioxide Anion Gap BUN Creatinine Creat Clearance w eGFR POC Glucometer 182 191 Random Glucose Calcium 10/31/17 10/31/17 10/31/17 06:50 12:02 17:30 WBC RBC Hgb Hct MCV MCH MCHC RDW Plt Count MPV Absolute Neuts (auto) Neutrophils % Lymphocytes % Monocytes % Eosinophils % Basophils % Nucleated RBC % Sodium 139 Potassium 4.4 Chloride 102 Carbon Dioxide 28 Anion Gap 9 BUN 22 H Creatinine 0.9 Creat Clearance w eGFR > 60 POC Glucometer 312 336 Random Glucose 178 H Calcium 9.5 Active Medications Generic Name Dose Route Start Last Admin Trade Name Freq PRN Reason Stop Dose Admin Atorvastatin Calcium 20 mg 10/24/17 22:00 10/30/17 22:23 Lipitor - PO 20 mg HS JUSTINE Administration Azathioprine 100 mg 10/25/17 10:00 10/31/17 10:15 Imuran - PO 100 mg DAILY JUSTINE Administration Azathioprine 50 mg 10/25/17 22:00 10/30/17 22:23 Imuran - PO 50 mg HS JUSTINE Administration Heparin Sodium (Porcine) 5,000 unit 10/24/17 22:00 10/31/17 14:06 Heparin - SQ 5,000 unit TID JUSTINE Administration Hydrochlorothiazide 25 mg 10/25/17 10:00 10/31/17 10:13 Hctz - PO 25 mg DAILY JUSTINE Administration IV Flush 8 ml 10/30/17 13:17 Picc Line Flush IVPUSH PRN PRN Protocol Ceftriaxone Sodium 2 gm/ 100 mls @ 200 mls/hr 10/28/17 13:45 10/31/17 10:30 Dextrose IVPB 200 mls/hr DAILY JUSTINE Administration Protocol Insulin Aspart 30 units 10/25/17 16:30 10/31/17 17:33 Novolog Mix 70/30 Vial SQ 30 unit BIDAC JUSTINE Administration Insulin Aspart 1 vial 10/26/17 11:30 10/31/17 12:09 Novolog Vial Sliding Scale - SQ 10 units 1130 JUSTINE Administration Protocol Losartan Potassium 100 mg 10/25/17 10:00 10/31/17 10:13 Cozaar - PO 100 mg DAILY JUSTINE Administration Metoprolol Succinate 200 mg 10/25/17 10:00 10/31/17 10:13 Toprol Xl - PO 200 mg DAILY JUSTINE Administration Mupirocin 1 applic 10/26/17 10:00 10/31/17 10:15 Bactroban 2% Ointment - TP 1 applic DAILY JUSTINE Administration Nifedipine 120 mg 10/25/17 10:00 10/31/17 10:13 Procardia Xl - PO 120 mg DAILY JUSTINE Administration Nortriptyline HCl 10 mg 10/24/17 22:00 10/30/17 22:24 Pamelor - PO 10 mg HS JUSTINE Administration Pyridostigmine [place] 60 mg 10/24/17 22:00 10/31/17 14:06 Mestinon - PO 60 mg TID JUSTINE Administration Tamsulosin HCl 0.4 mg 10/24/17 22:00 10/30/17 22:22 Flomax - PO 0.4 mg HS JUSTINE Administration IMAGING Right lower extremity duplex venous ultrasound: No evidence of DVT. No superficial thrombophlebitis. Xray right foot: medial distal first metatarsal periosteal elevation without gross erosion. MRI right lower extremity: Subcutaneous edema and skin thickening suggestive for cellulitis. There is questionable bone marrow edema at first metatarsal, and osteomyelitis cannot be ruled out. ASSESSMENT/PLAN: Patient is a 62 year old male with history significant for diabetes s/p amputation of right great toe, hypertension, myasthenia gravis, coronary artery disease s/p 1 stent, presents with complaint of painless redness and swelling of his right foot for the past month. Cellulitis, r/o osteomyelitis -Erythema and swelling improving. Patient continues to remain afebrile, without white count. -MRI cannot exclude osteomyelitis. -ID consult (Dr. Hooker) appreciated: PICC line and Ceftriaxone IV for 5 weeks. However, after discussion with patient, he does not want PICC line at this time. Will continue to monitor on IV antibiotics. Ceftriaxone 2gm IV daily (day 5). -Blood cultures: negative -Wound cultures: Staph Aureus (sensitive to Ceftriaxone). -Financial Management consult (Dr. 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 Patient to follow up as outpatient. Myasthenia Gravis -Azathioprine 75mg PO BID -Pyridostigmine 60mg PO TID HTN -Nifedipine 120mg PO QD -Metoprolol succinate 200mg PO QD -Losartan 100mg PO QD -Hydrochlorothiazide 25mg PO QD DM -Novolog 70/30 30mg BID -ISS for lunch time only. -BGM ACHS -Continue Nortryptyline 10mg PO QHS for neuropathy CAD -Continue Aspirin 81 mg PO HLD -Atorvastatin 20mg PO HS BPH -Tamsulosin 0.4mg PO HS FEN -No IV fluids. Encourage judicious oral hydration -Follow CMP -Diabetic, salt controlled diet Prophylaxis -Heparin 5000units subq TID Disposition -Continue care in medical-surgical floor for IV antibiotics. Visit type - Emergency Visit Emergency Visit: Yes ED Registration Date: 10/24/17 Care time: The patient presented to the Emergency Department on the above date and was hospitalized for further evaluation of their emergent condition. - New Patient This patient is new to me today: No - Critical Care Critical Care patient: No - Discharge Referral Referred to [facility] Med P.C.: No
[2017-10-31] MEDS: ATORVASTATIN CA 20 MG TABLET (FP) PO SCH (21:38)
[2017-10-31] MEDS: TAMSULOSIN HCL 0.4 MG CAP.ER.24H (FP) PO SCH (21:38)
[2017-10-31] MEDS: NORTRIPTYLINE HCL 10 MG CAPSULE PO SCH (21:40)
[2017-11-01 06:51] LABS: HEMATOCRIT 40.1 % (35.4-49); HEMOGLOBIN 13.4 GM/dL (11.7-16.9); MCH 28.5 pg (25.7-33.7); MCHC 33.4 g/dl (32.0-35.9); MEAN CELL VOLUME 85.3 fl (80-96); MEAN PLT VOLUME 8.1 fl (7.5-11.1); PLATELET COUNT 263 K/MM3 (134-434); RDW 14.6 % (11.9-15.9); WHITE BLOOD COUNT 8.7 K/mm3 (4.0-10.0)
[2017-11-01] MEDS: PYRIDOSTIGMINE BROMIDE 60 MG TABLET PO SCH ×2 (06:53→15:18)
[2017-11-01] MEDS ORDERED: INSULIN SLIDING SCALE (NOVOLOG) 1 VIAL SQ SCH (07:00)
[2017-11-01 07:38] LABS: ALBUMIN 3.6 g/dl (3.4-5.0); ALK PHOS 72 U/L (45-117); ANION GAP 7 MMOL/L (8-16); BILIRUBIN,TOTAL 0.3 mg/dL (0.2-1); BLOOD UREA NITROGEN 22 mg/dL (7-18); CHLORIDE 103 mmol/L (98-107); CO2 27 mmol/L (21-32); CREATININE 0.9 mg/dL (0.55-1.3); GLUCOSE,RANDOM 159 mg/dL (74-106); MAGNESIUM 2.3 mg/dL (1.8-2.4); PHOSPHOROUS 4.4 mg/dL (2.5-4.9); SGOT/AST 28 U/L (15-37); SGPT/ALT 67 U/L (13-61); SODIUM 137 mmol/L (136-145); TOT PROT 7.4 g/dl (6.4-8.2)
[2017-11-01] MEDS ORDERED: PT OWN MED DRAWER 7, Y5N ONE ×3 (09:59→15:16)
[2017-11-01] MEDS ORDERED: DEXTROSE 5%-WATER 100 ML IVPB ONE (10:00)
[2017-11-01] MEDS: NIFEdipine E.R 60 MG TABLET (UD) PO SCH (10:04)
[2017-11-01] MEDS: CEFTRIAXONE 2 GM in DEXTROSE 5%-WATER 100 ML IVPB SCH (10:04)
[2017-11-01] MEDS: HYDROCHLOROTHIAZIDE 25 MG TABLET (FP) PO SCH (10:05)
[2017-11-01] MEDS: LOSARTAN POTASSIUM 50 MG TABLET (FP) PO SCH (10:05)
[2017-11-01] MEDS: azaTHIOprine 50 MG TABLET PO SCH (10:06)
[2017-11-01] MEDS: MUPIROCIN 2% TOPICAL OINTMENT 22 GM TUBE TP SCH (10:07)
[2017-11-01] MEDS: INSULIN SLIDING SCALE (NOVOLOG) 1 VIAL SQ SCH ×2 (10:30→12:20)
[2017-11-01] MEDS: INSULIN (NOVOLOG MIX 70/30) 100 UNITS/ML MDV SQ SCH ×2 (10:34→17:53)
--- NOTE | 2017-11-01 10:38 | PN ---
Progress Note (short form) - Note Progress Note: nad feels well Vital Signs Period Temp Pulse Resp BP Sys/Cortez Pulse Ox Last 24 Hr 97.4 F-98.7 F 62-68 18-20 111-151/64-73 98-98 cor-rrr lungs clear abd soft,nt ext less erythema of the forefoot CBC, BMP 11/01/17 06:20 11/01/17 06:20 Laboratory Tests 10/25/17 10/28/17 10/28/17 06:30 06:00 06:00 ESR 29 H C-Reactive Protein 1.4 H < 0.3 Current Medications Atorvastatin Calcium (Lipitor -) 20 mg PO HS [facility] Last Admin: 10/31/17 21:38 Dose: 20 mg Azathioprine (Imuran -) 100 mg PO DAILY [facility] Last Admin: 11/01/17 10:06 Dose: 100 mg Azathioprine (Imuran -) 50 mg PO HS [facility] Last Admin: 10/31/17 21:39 Dose: 50 mg Hydrochlorothiazide (Hctz -) 25 mg PO DAILY [facility] Last Admin: 11/01/17 10:05 Dose: 25 mg IV Flush (Picc Line Flush) 8 ml IVPUSH PRN PRN PRN Reason: Protocol Ceftriaxone Sodium 2 gm/ (Dextrose) 100 mls @ 200 mls/hr IVPB DAILY [facility]; Protocol Last Admin: 11/01/17 10:04 Dose: 200 mls/hr Insulin Aspart (Novolog Mix 70/30 Vial) 30 units SQ BIDAC [facility] Last Admin: 11/01/17 10:34 Dose: 30 unit Insulin Aspart (Novolog Vial Sliding Scale -) 1 vial SQ 1130 [facility]; Protocol Last Admin: 10/31/17 12:09 Dose: 10 units Lactobacillus Acidophilus (Bacid -) 1 tab PO DAILY [facility] Losartan Potassium (Cozaar -) 100 mg PO DAILY [facility] Last Admin: 11/01/17 10:05 Dose: 100 mg Metoprolol Succinate (Toprol Xl -) 200 mg PO DAILY [facility] Last Admin: 11/01/17 10:04 Dose: 200 mg Mupirocin (Bactroban 2% Ointment -) 1 applic TP DAILY [facility] Last Admin: 11/01/17 10:07 Dose: 1 applic Nifedipine (Procardia Xl -) 120 mg PO DAILY [facility] Last Admin: 11/01/17 10:04 Dose: 120 mg Nortriptyline HCl (Pamelor -) 10 mg PO HS [facility] Last Admin: 10/31/17 21:40 Dose: 10 mg Pyridostigmine [place] (Mestinon -) 60 mg PO TID [facility] Last Admin: 11/01/17 06:53 Dose: 60 mg Tamsulosin HCl (Flomax -) 0.4 mg PO HS [facility] Last Admin: 10/31/17 21:38 Dose: 0.4 mg imp/reccd cellulitis day #8rocephin, cannot r/o early osteomyelitis by MRI d/w patient and with brother Luz by phone (nurse) they continue to refuse picc line requesting oral antiibotics they are aware untreated osteo can lead to possible amputation they are planning to f/u with his PMD at [facility] would suggest interval MRI to re-evaluate he may well eventually require picc and custodial iv antibiotics suggest switch to po clindamycin 300 tid for 2 weeks add probiotics consider skin biopsy as outpt if cellulitis fails to resolve they would like to f/u in the [place] where their docs are located declining f/u at wound care or with ID here in [place] diabetes MG penicillin allergy-since childhood- it "ran through him", no history of anaphylaxis or rash Problem List - Problems (1) Cellulitis Code(s): L03.90 - CELLULITIS, UNSPECIFIED (2) Diabetes Code(s): E11.9 - TYPE 2 DIABETES MELLITUS WITHOUT COMPLICATIONS (3) Myasthenia gravis Code(s): G70.00 - MYASTHENIA GRAVIS WITHOUT (ACUTE) EXACERBATION (4) Penicillin allergy Code(s): Z88.0 - ALLERGY STATUS TO PENICILLIN
[2017-11-01] MEDS ORDERED: LACTOBACILLUS ACIDOPHILUS 1 TABLET PO SCH (10:45)
--- NOTE | 2017-11-01 11:29 | PN ---
Physical Exam: SUBJECTIVE: Patient seen and examined OBJECTIVE: Vital Signs Period Temp Pulse Resp BP Sys/[place] Pulse Ox Last 24 Hr 97.4 F-98.7 F 62-68 18-20 111-151/64-73 98 GENERAL: The patient is awake, alert, and fully oriented, in no acute distress. HEAD: Normal with no signs of trauma. EYES: PERRL, extraocular movements intact, sclera anicteric, conjunctiva clear. No ptosis. ENT: Ears normal, nares patent, oropharynx clear without exudates, moist mucous membranes. NECK: Trachea midline, full range of motion, supple. LUNGS: Breath sounds equal, clear to auscultation bilaterally, no wheezes, no crackles, no accessory muscle use. HEART: Regular rate and rhythm, S1, S2 without murmur, rub or gallop. ABDOMEN: Soft, nontender, nondistended, normoactive bowel sounds, no guarding, no rebound, no hepatosplenomegaly, no masses. EXTREMITIES: 2+ pulses, warm, well-perfused, no edema. NEUROLOGICAL: Cranial nerves II through XII grossly intact. Normal speech, gait not observed. PSYCH: Normal mood, normal affect. SKIN: Warm, dry, normal turgor, no rashes or lesions noted Laboratory Results - last 24 hr 10/31/17 10/31/17 10/31/17 12:02 17:30 21:37 WBC RBC Hgb Hct MCV MCH MCHC RDW Plt Count MPV Sodium Potassium Chloride Carbon Dioxide Anion Gap BUN Creatinine Creat Clearance w eGFR POC Glucometer 312 336 340 Random Glucose Calcium Phosphorus Magnesium Total Bilirubin AST ALT Alkaline Phosphatase Total Protein Albumin 11/01/17 11/01/17 11/01/17 06:20 06:20 06:52 WBC 8.7 RBC 4.70 Hgb 13.4 Hct 40.1 MCV 85.3 MCH 28.5 MCHC 33.4 RDW 14.6 Plt Count 263 MPV 8.1 Sodium 137 Potassium 4.0 Chloride 103 Carbon Dioxide 27 Anion Gap 7 L BUN 22 H Creatinine 0.9 Creat Clearance w eGFR > 60 POC Glucometer 195 Random Glucose 159 H Calcium 9.0 Phosphorus 4.4 Magnesium 2.3 Total Bilirubin 0.3 AST 28 ALT 67 H Alkaline Phosphatase 72 Total Protein 7.4 Albumin 3.6 Active Medications Generic Name Dose Route Start Last Admin Trade Name Freq PRN Reason Stop Dose Admin Atorvastatin Calcium 20 mg 10/24/17 22:00 10/31/17 21:38 Lipitor - PO 20 mg HS JUSTINE Administration Azathioprine 100 mg 10/25/17 10:00 11/01/17 10:06 Imuran - PO 100 mg DAILY JUSTINE Administration Azathioprine 50 mg 10/25/17 22:00 10/31/17 21:39 Imuran - PO 50 mg HS JUSTINE Administration Hydrochlorothiazide 25 mg 10/25/17 10:00 11/01/17 10:05 Hctz - PO 25 mg DAILY JUSTINE Administration IV Flush 8 ml 10/30/17 13:17 Picc Line Flush IVPUSH PRN PRN Protocol Ceftriaxone Sodium 2 gm/ 100 mls @ 200 mls/hr 10/28/17 13:45 11/01/17 10:04 Dextrose IVPB 200 mls/hr DAILY JUSTINE Administration Protocol Insulin Aspart 30 units 10/25/17 16:30 11/01/17 10:34 Novolog Mix 70/30 Vial SQ 30 unit BIDAC JUSTINE Administration Insulin Aspart 1 vial 10/26/17 11:30 10/31/17 12:09 Novolog Vial Sliding Scale - SQ 10 units 1130 JUSTINE Administration Protocol Lactobacillus Acidophilus 1 tab 11/01/17 10:45 Bacid - PO DAILY JUSTINE Losartan Potassium 100 mg 10/25/17 10:00 11/01/17 10:05 Cozaar - PO 100 mg DAILY JUSTINE Administration Metoprolol Succinate 200 mg 10/25/17 10:00 11/01/17 10:04 Toprol Xl - PO 200 mg DAILY JUSTINE Administration Mupirocin 1 applic 10/26/17 10:00 11/01/17 10:07 Bactroban 2% Ointment - TP 1 applic DAILY JUSTINE Administration Nifedipine 120 mg 10/25/17 10:00 11/01/17 10:04 Procardia Xl - PO 120 mg DAILY JUSTINE Administration Nortriptyline HCl 10 mg 10/24/17 22:00 10/31/17 21:40 Pamelor - PO 10 mg HS JUSTINE Administration Pyridostigmine [place] 60 mg 10/24/17 22:00 11/01/17 06:53 Mestinon - PO 60 mg TID JUSTINE Administration Tamsulosin HCl 0.4 mg 10/24/17 22:00 10/31/17 21:38 Flomax - PO 0.4 mg HS JUSTINE Administration ASSESSMENT/PLAN: Patient is a 62 year old male with history significant for diabetes s/p amputation of right great toe, hypertension, myasthenia gravis, coronary artery disease s/p 1 stent, presents with complaint of painless redness and swelling of his right foot for one month. Xray right foot showed medial distal first metatarsal periosteal elevation without gross erosion. Right lower extremity duplex venous ultrasound showed no evidence of DVT. No superficial thrombophlebitis. Patient did not have white count or fever upon admission. Patient was started on Vancomycin IV, and Doxycycline IV. ID consult recommended Doxycycline switched to Axtreonam IV. Podiatry consult discussed diabetic dermopathy, without probing to bone. Amputation site was debrided. MRI of right lower was performed and could not rule out osteomyelitis. ID recommended discontinuation of Vancomycin and Aztreonam. Ceftriaxone IV was started. ID recommended PICC line insertion and continuation of Rocephin 2grams daily for 5 additional weeks, however patient and his brother (who is a nurse) did not want the PICC line. They asked for only oral antibiotics, and to follow up outpatient with his doctors. Discussed risk of worsening infection, possible spread of osteomyelitis, and possible need of IV antibiotics in the future with patient and his brother who expressed understanding and agreement with only oral antibiotics. Patient discharged with ID recommendations for Clindamycin 300mg PO TID for two weeks, with Bacid. Patient instructed to follow up with his primary care physician, Infectious Disease physician, Assigner, and wound care clinic within one week of discharge. Home medications for Myasthenia Gravis, DM, HTN, HLD, BPH, CAD reinstated.
--- NOTE | 2017-11-01 13:46 | DS ---
Physical Exam: SUBJECTIVE: Patient seen and examined at bedside this morning, resting comfortably in exam bed. Denies any acute overnight events, or any acute complaints this morning. Admits continued improvement in erythema and swelling of anterior leg. Denies pain or discharge from b/l legs. Denies headache, fevers , chills, shortness of breath, chest pain, palpitations, abdominal pain, nausea , vomiting, diarrhea. Patient still does not want PICC line, and instead wants to follow up outpatient, with oral antibiotics. OBJECTIVE: Vital Signs Period Temp Pulse Resp BP Sys/[place] Pulse Ox Last 24 Hr 97.4 F-98.7 F 60-68 18-20 111-151/64-73 98-99 PHYSICAL EXAM GENERAL: Awake, alert, and fully oriented, in no acute distress. HEAD: Normocephalic, atraumatic EYES: Pupils equal, round and reactive to light, extraocular movements intact, sclera anicteric, conjunctiva clear. EARS, NOSE, THROAT: Oropharynx clear without exudates. Moist mucous membranes. NECK: Normal range of motion, supple without lymphadenopathy. LUNGS: Breath sounds equal, clear to auscultation bilaterally. No wheezes, and no crackles. No accessory muscle use. HEART: Regular rate and rhythm, normal S1 and S2 without murmur, rub or gallop. ABDOMEN: Obese. Soft, nontender, not distended, normoactive bowel sounds, no guarding, no rebound. No hepatomegaly or splenomegaly appreciated. UPPER EXTREMITIES: 2+ pulses, warm. Strength 5/5 in flexion, extension, abduction, adduction B/L LOWER EXTREMITIES: RLE amputation site debredied. 1+ pitting edema right lower extremity. Firmness resolving. Scar from right great toe amputation still appears cobbled, with erythema progressing proximally around foot and superiorly at anterior leg. Nontender to palpation. No drainage expressed. Swelling and erythema significantly diminishing from outlined border along anterior leg. NEUROLOGICAL: Cranial nerves II-XII intact. Normal speech. No gross focal deficits. Sensation intact B/L upper and lower extremities. PSYCHIATRIC: Cooperative. Good eye contact. Appropriate mood and affect. SKIN: Diminishing erythema at right lower extremity. LABS Laboratory Results - last 24 hr 10/31/17 10/31/17 11/01/17 17:30 21:37 06:20 WBC 8.7 RBC 4.70 Hgb 13.4 Hct 40.1 MCV 85.3 MCH 28.5 MCHC 33.4 RDW 14.6 Plt Count 263 MPV 8.1 Sodium Potassium Chloride Carbon Dioxide Anion Gap BUN Creatinine Creat Clearance w eGFR POC Glucometer 336 340 Random Glucose Calcium Phosphorus Magnesium Total Bilirubin AST ALT Alkaline Phosphatase Total Protein Albumin 11/01/17 11/01/17 11/01/17 06:20 06:52 12:18 WBC RBC Hgb Hct MCV MCH MCHC RDW Plt Count MPV Sodium 137 Potassium 4.0 Chloride 103 Carbon Dioxide 27 Anion Gap 7 L BUN 22 H Creatinine 0.9 Creat Clearance w eGFR > 60 POC Glucometer 195 328 Random Glucose 159 H Calcium 9.0 Phosphorus 4.4 Magnesium 2.3 Total Bilirubin 0.3 AST 28 ALT 67 H Alkaline Phosphatase 72 Total Protein 7.4 Albumin 3.6 HOSPITAL COURSE: Date of Admission:10/24/17 Date of Discharge: 11/01/17 Patient is a 62 year old male with history significant for diabetes s/p amputation of right great toe, hypertension, myasthenia gravis, coronary artery disease s/p 1 stent, presents with complaint of painless redness and swelling of his right foot for one month. Xray right foot showed medial distal first metatarsal periosteal elevation without gross erosion. Right lower extremity duplex ultrasound showed no evidence of DVT. Patient did not have white count or fever upon admission. Patient was started on Vancomycin IV, and Doxycycline IV. Home medications for Myasthenia Gravis, DM, HTN, HLD, BPH, CAD reinstated. ID consult recommended Doxycycline switched to Axtreonam IV. Podiatry consult discussed diabetic dermopathy, without probing to bone. MRI of right lower extremity could not rule out osteomyelitis. ID recommended switch to Ceftriaxone IV. ID recommended PICC line insertion and continuation of Rocephin 2grams daily for 5 additional weeks, however patient and his brother (who is a nurse) did not want the PICC line. They asked for only oral antibiotics, and to follow up outpatient with his doctors. Discussed risk of worsening infection, possible spread of osteomyelitis, and possible need of IV antibiotics in the future with patient and his brother who expressed understanding and agreement with only oral antibiotics. Patient discharged with ID recommendations for Clindamycin 300mg PO TID for two weeks, with Bacid. Patient instructed to follow up with his primary care physician, Infectious Disease physician, Filler Shredder Helper, and wound care clinic within one week of discharge. Minutes to complete discharge: 45 Discharge Summary Reason For Visit: CELLULITIS Current Active Problems Cellulitis (Acute) Diabetes (Acute) Myasthenia gravis (Chronic) Condition: Guarded - Instructions Diet, Activity, Other Instructions: You were admitted for infection of the skin of your right foot and leg. You were treated with intravenous antibiotics for the infection. You will continue taking antibiotics Clindamycin 300mg three times a day for two weeks. In addition, you will take probiotic Bacid, twice tablet daily. Please be advised that you might still be needing intravenous antibiotics in outpatient setting which requires a PICC line, since possibility of having osteomyelitis cannot be ruled out, you opt out the Picc line at this time, please be aware that if you do not improve, to return to the hospital immediately for further care and antibiotics. Continue taking your home medications as directed. It is important that you follow up with your primary care physician Dr. Barajas within one week of discharge. At that appointment the physician may consider an interval MRI to re-evaluate the foot, as well as a skin biopsy. In addition, you will discuss further antibiotic therapy. It is important that you follow up with the Filler Shredder Helper within one week of discharge. We have provided you a referral to the director of golf seen in the hospital (Dr. Souza). In addition, it is important to follow up with Infectious Disease specialist ( Dr. Dunn) within one week of discharge. Finally, it is important to follow up with the wound care clinic. We have provided you with a referral to the wound clinic at [facility] with Dr. Dunn. Please return to the nearest emergency department if you experience fevers, chills, shortness of breath, chest pain, worsening redness or swelling of the foot/ leg, any drainage or bleeding from the foot or amputation site. Referrals: Umer Souza MD [Staff Physician] - 1 Week Irlanda Valdez MD [Staff Physician] - Disposition: HOME - Home Medications Comprehensive Discharge Medication List: Ambulatory Orders Atorvastatin Ca [Lipitor] 20 mg PO HS 10/24/17 Azathioprine 75 mg PO BID 10/24/17 Hydrochlorothiazide 25 mg PO DAILY 10/24/17 Losartan Potassium 100 mg PO DAILY 10/24/17 Metoprolol Succinate 200 mg PO DAILY 10/24/17 Nifedipine ER [Procardia XL -] 120 mg PO DAILY 10/24/17 Nortriptyline HCl [Pamelor -] 10 mg PO HS 10/24/17 Novolin 70-30 100 Unit/ml Vial 35 unit SQ DAILY 10/24/17 Novolin 70-30 100 Unit/ml Vial 68 units SQ AM 10/24/17 Pyridostigmine [place] 60 mg PO TID 10/24/17 Tamsulosin HCl 0.4 mg PO HS 10/24/17 metFORMIN HCL [Metformin HCl] 1,000 mg PO BID 10/24/17 Clindamycin [Cleocin -] 300 mg PO TID 14 Days #42 capsule 11/01/17 Lactobacillus Acidophilus [Bacid -] 1 tab PO DAILY 30 Days #30 tablet 11/01/17 This patient is new to me today: No Emergency Visit: Yes ED Registration Date: 10/24/17 Care time: The patient presented to the Emergency Department on the above date and was hospitalized for further evaluation of their emergent condition. Critical Care patient: No - Discharge Referral Referred to [facility] No
--- NOTE | 2017-11-01 13:50 | PN ---
Teaching Attending Note Name of Resident: Charles Trivedi ATTENDING PHYSICIAN STATEMENT I saw and evaluated the patient. I reviewed the resident's note and discussed the case with the resident. I agree with the resident's findings and plan as documented. SUBJECTIVE: Patient is comfortable with no acute distress. OBJECTIVE: Vital Signs Temperature 98.3 F 11/01/17 09:00 Pulse Rate 60 11/01/17 09:00 Respiratory Rate 18 11/01/17 09:00 Blood Pressure 138/71 11/01/17 09:00 O2 Sat by Pulse Oximetry (%) 99 11/01/17 09:00 CBCD WBC 8.7 K/mm3 (4.0-10.0) 11/01/17 06:20 RBC 4.70 M/mm3 (4.00-5.60) 11/01/17 06:20 Hgb 13.4 GM/dL (11.7-16.9) 11/01/17 06:20 Hct 40.1 % (35.4-49) 11/01/17 06:20 MCV 85.3 fl (80-96) 11/01/17 06:20 MCHC 33.4 g/dl (32.0-35.9) 11/01/17 06:20 RDW 14.6 % (11.9-15.9) 11/01/17 06:20 Plt Count 263 K/MM3 (134-434) 11/01/17 06:20 MPV 8.1 fl (7.5-11.1) 11/01/17 06:20 GEN: NAD, AA0x3 Cv: RRR Lungs: CTAB Ext: R dorsal foot erythema and edema are better today. No tenderness CMP Sodium 137 mmol/L (136-145) 11/01/17 06:20 Potassium 4.0 mmol/L (3.5-5.1) 11/01/17 06:20 Chloride 103 mmol/L (98-107) 11/01/17 06:20 Carbon Dioxide 27 mmol/L (21-32) 11/01/17 06:20 Anion Gap 7 MMOL/L (8-16) L 11/01/17 06:20 BUN 22 mg/dL (7-18) H 11/01/17 06:20 Creatinine 0.9 mg/dL (0.55-1.3) 11/01/17 06:20 Creat Clearance w eGFR > 60 (>60) 11/01/17 06:20 Random Glucose 159 mg/dL (74-106) H 11/01/17 06:20 Calcium 9.0 mg/dL (8.5-10.1) 11/01/17 06:20 Total Bilirubin 0.3 mg/dL (0.2-1) 11/01/17 06:20 AST 28 U/L (15-37) 11/01/17 06:20 ALT 67 U/L (13-61) H 11/01/17 06:20 Alkaline Phosphatase 72 U/L (45-117) 11/01/17 06:20 Total Protein 7.4 g/dl (6.4-8.2) 11/01/17 06:20 Albumin 3.6 g/dl (3.4-5.0) 11/01/17 06:20 Current Medications Generic Name Dose Route Start Last Admin Trade Name Freq PRN Reason Stop Dose Admin Atorvastatin Calcium 20 mg 10/24/17 22:00 10/31/17 21:38 Lipitor - PO 20 mg HS JUSTINE Administration Azathioprine 100 mg 10/25/17 10:00 11/01/17 10:06 Imuran - PO 100 mg DAILY JUSTINE Administration Azathioprine 50 mg 10/25/17 22:00 10/31/17 21:39 Imuran - PO 50 mg HS JUSTINE Administration Hydrochlorothiazide 25 mg 10/25/17 10:00 11/01/17 10:05 Hctz - PO 25 mg DAILY JUSTINE Administration IV Flush 8 ml 10/30/17 13:17 Picc Line Flush IVPUSH PRN PRN Protocol Ceftriaxone Sodium 2 gm/ 100 mls @ 200 mls/hr 10/28/17 13:45 11/01/17 10:04 Dextrose IVPB 200 mls/hr DAILY JUSTINE Administration Protocol Insulin Aspart 30 units 10/25/17 16:30 11/01/17 10:34 Novolog Mix 70/30 Vial SQ 30 unit BIDAC JUSTINE Administration Insulin Aspart 1 vial 10/26/17 11:30 11/01/17 12:20 Novolog Vial Sliding Scale - SQ 10 units 1130 JUSTINE Administration Protocol Lactobacillus Acidophilus 1 tab 11/01/17 10:45 11/01/17 12:17 Bacid - PO 1 tab DAILY JUSTINE Administration Losartan Potassium 100 mg 10/25/17 10:00 11/01/17 10:05 Cozaar - PO 100 mg DAILY JUSTINE Administration Metoprolol Succinate 200 mg 10/25/17 10:00 11/01/17 10:04 Toprol Xl - PO 200 mg DAILY JUSTINE Administration Mupirocin 1 applic 10/26/17 10:00 11/01/17 10:07 Bactroban 2% Ointment - TP 1 applic DAILY JUSTINE Administration Nifedipine 120 mg 10/25/17 10:00 11/01/17 10:04 Procardia Xl - PO 120 mg DAILY JUSTINE Administration Nortriptyline HCl 10 mg 10/24/17 22:00 10/31/17 21:40 Pamelor - PO 10 mg HS JUSTINE Administration Pyridostigmine [place] 60 mg 10/24/17 22:00 11/01/17 06:53 Mestinon - PO 60 mg TID JUSTINE Administration Tamsulosin HCl 0.4 mg 10/24/17 22:00 10/31/17 21:38 Flomax - PO 0.4 mg HS JUSTINE Administration Home Medications Medication Instructions Recorded Atorvastatin Ca [Lipitor] 20 mg PO HS 10/24/17 Azathioprine 75 mg PO BID 10/24/17 Hydrochlorothiazide 25 mg PO DAILY 10/24/17 Losartan Potassium 100 mg PO DAILY 10/24/17 Metoprolol Succinate 200 mg PO DAILY 10/24/17 Nifedipine ER [Procardia XL -] 120 mg PO DAILY 10/24/17 Nortriptyline HCl [Pamelor -] 10 mg PO HS 10/24/17 Novolin 70-30 100 Unit/ml Vial 35 unit SQ DAILY 10/24/17 Novolin 70-30 100 Unit/ml Vial 68 units SQ AM 10/24/17 Pyridostigmine [place] 60 mg PO TID 10/24/17 Tamsulosin HCl 0.4 mg PO HS 10/24/17 metFORMIN HCL [Metformin HCl] 1,000 mg PO BID 10/24/17 Clindamycin [Cleocin -] 300 mg PO TID 14 Days #42 capsule 11/01/17 Lactobacillus Acidophilus [Bacid -] 1 tab PO DAILY 30 Days #30 tablet 11/01/17 ASSESSMENT AND PLAN: 62 y/o man with h/o diabetes s/p amputation of right great toe, hypertension, myasthenia gravis, coronary artery disease s/p stenting who presented with R Le erythema and edema , and was found to have cellulites # Acute Right lower ext cellulites: questionable OM , patient is refusing to have Picc line , refusing home IV Rocephin, as per Id to discharge patient home on Clindamycin po x 7 days since refusing IV antibiotic and PICC line. patient was informed if he deteriorates to come back to the hospital. # DM: cont Novolog mix 30 BID and continue metformin # HTN : cont meds.
[2017-11-01 15:25] VITALS: BP 117/61; PULSE 68; TEMP 98.1
== END 2017-11-01 17:54 | disposition home or self-care (01) | DRG 540 ==
LOC: JER 15:00 → JERBED 17:48 → J5S 20:12
PROVIDERS: ADMIT Internal Medicine; ATTEND Internal Medicine
DX: M86.9 Osteomyelitis, unspecified (principal); L03.115 Cellulitis of right lower limb; L97.518 Non-pressure chronic ulcer of other part of right foot with other specified severity; E11.40 Type 2 diabetes mellitus with diabetic neuropathy, unspecified; E11.621 Type 2 diabetes mellitus with foot ulcer; E11.628 Type 2 diabetes mellitus with other skin complications; E11.44 Type 2 diabetes mellitus with diabetic amyotrophy; I10 Essential (primary) hypertension; G70.00 Myasthenia gravis without (acute) exacerbation; I25.10 Atherosclerotic heart disease of native coronary artery without angina pectoris; E78.5 Hyperlipidemia, unspecified; N40.0 Benign prostatic hyperplasia without lower urinary tract symptoms; L08.9 Local infection of the skin and subcutaneous tissue, unspecified; Z89.421 Acquired absence of other right toe(s); Z95.5 Presence of coronary angioplasty implant and graft; Z88.0 Allergy status to penicillin
CPT/HCPCS: 36415; 73630-TC-RT-FY; 73718-TC; 80048; 80053; 82962; 83735; 84100; 85025; 85027; 85651; 86140; 87040; 87070; 87186; 87205; 93971-TC; 97116-GP; 97161-GP; 99282-25; G0480; J1644

== ENCOUNTER 2019-02-07 11:24 | Inpatient (IN) | payer OTHER ==
--- NOTE | 2019-02-07 11:55 | PDOC ---
History of Present Illness - General Chief Complaint: Edema Stated Complaint: COLD SYMPTOMS Time Seen by Provider: 02/07/19 11:50 History Source: Patient Exam Limitations: No Limitations Past History - Past Medical History Allergies/Adverse Reactions: Allergies Allergy/AdvReac Type Severity Reaction Status Date / Time Penicillins Allergy Verified 02/07/19 11:35 Home Medications: Ambulatory Orders Atorvastatin Ca [Lipitor] 20 mg PO HS 10/24/17 Azathioprine 75 mg PO BID 10/24/17 Hydrochlorothiazide 25 mg PO DAILY 10/24/17 Losartan Potassium 100 mg PO DAILY 10/24/17 Metoprolol Succinate 200 mg PO DAILY 10/24/17 Nifedipine ER [Procardia XL -] 120 mg PO DAILY 10/24/17 Nortriptyline HCl [Pamelor -] 10 mg PO HS 10/24/17 Novolin 70-30 100 Unit/ml Vial 35 unit SQ DAILY 10/24/17 Novolin 70-30 100 Unit/ml Vial 68 units SQ AM 10/24/17 Pyridostigmine [place] 60 mg PO TID 10/24/17 Tamsulosin HCl 0.4 mg PO HS 10/24/17 metFORMIN HCL [Metformin HCl] 1,000 mg PO BID 10/24/17 Clindamycin [Cleocin -] 300 mg PO TID 14 Days #42 capsule 11/01/17 Lactobacillus Acidophilus [Bacid -] 1 tab PO DAILY 30 Days #30 tablet 11/01/17 Anemia: No Asthma: No Cancer: No Cardiac Disorders: No CVA: No COPD: No CHF: No Dementia: No Diabetes: Yes (IDDM) GI Disorders: No Disorders: No HTN: Yes Hypercholesterolemia: Yes Liver Disease: No Psychiatric Problems: Yes Seizures: No Thyroid Disease: No - Surgical History Abdominal Surgery: Yes (gallbladder) Appendectomy: No Cardiac Surgery: Yes (1 stent) Cholecystectomy: Yes Lung Surgery: No Neurologic Surgery: No Orthopedic Surgery: Yes (right knee miniscus) - Psycho Social/Smoking Cessation Hx Smoking History: Never smoked Have you smoked in the past 12 months: Yes Cigars Per Day: 1 Hx Alcohol Use: Yes (socially) Drug/Substance Use Hx: No Substance Use Type: None Hx Substance Use Treatment: No *Physical Exam - Vital Signs Last Vital Signs Temp Pulse Resp BP Pulse Ox 98.4 F 111 H 18 127/70 99 02/07/19 11:26 02/07/19 11:26 02/07/19 11:26 02/07/19 11:26 02/07/19 11:26
--- NOTE | 2019-02-07 12:42 | PDOC ---
History of Present Illness - General Chief Complaint: Edema Stated Complaint: COLD SYMPTOMS Time Seen by Provider: 02/07/19 11:50 History Source: Patient Exam Limitations: No Limitations - History of Present Illness Initial Comments: 02/07/19 12:41 HPI: 63yo M PMH DM, s/p amputation of right great toe, hypertension, myasthenia gravis, coronary artery disease s/p stenting presenting to ED with 2 weeks of chills and RLE swelling / redness with infected appearing right 4th toe. Patient was recently admitted (10/24-11/01/2018) for IV abx for RLE cellulitis with concern for osteomyelitis. He was discharged, refusing PICC line for at home IV ABX (Rocephin), discharged on Clindamycin po x 7 days. Reports that he took the full course. Patient reports today that he has had continued chills for 2-3 weeks, initially thinking that he had the flu, but it never improved. Denies difficulty breathing, chest pain, nausea, vomiting, diarrhea, diaphoresis , myalgias. He is only endorsing chills and some RLE discomfort with walking, first noticed swelling on that foot / inability to put on his shoes on 2018. Baseline neuropathy, minimal pain on RLE now and with prior presentation. All: PCNs Meds: per chart PMH: as above PSH: as above Past History - Travel Traveled outside of the country in the last 30 days: No Close contact w/someone who was outside of country & ill: No - Past Medical History Allergies/Adverse Reactions: Allergies Allergy/AdvReac Type Severity Reaction Status Date / Time Penicillins Allergy Verified 02/07/19 11:35 Home Medications: Ambulatory Orders Atorvastatin Ca [Lipitor] 20 mg PO HS 10/24/17 Azathioprine 75 mg PO BID 10/24/17 Hydrochlorothiazide 25 mg PO DAILY 10/24/17 Losartan Potassium 100 mg PO DAILY 10/24/17 Metoprolol Succinate 200 mg PO DAILY 10/24/17 Nifedipine ER [Procardia XL -] 120 mg PO DAILY 10/24/17 Nortriptyline HCl [Pamelor -] 10 mg PO HS 10/24/17 Novolin 70-30 100 Unit/ml Vial 68 units SQ AM 10/24/17 Tamsulosin HCl 0.4 mg PO HS 10/24/17 metFORMIN HCL [Metformin HCl] 2,000 mg PO BID 10/24/17 Finasteride 5 mg PO DAILY 02/07/19 Anemia: No Asthma: No Cancer: No Cardiac Disorders: No CVA: No COPD: No CHF: No Dementia: No Diabetes: Yes (IDDM) GI Disorders: No Disorders: No HTN: Yes Hypercholesterolemia: Yes Liver Disease: No Psychiatric Problems: Yes Seizures: No Thyroid Disease: No - Surgical History Abdominal Surgery: Yes (gallbladder) Appendectomy: No Cardiac Surgery: Yes (1 stent) Cholecystectomy: Yes Lung Surgery: No Neurologic Surgery: No Orthopedic Surgery: Yes (right knee miniscus) - Psycho Social/Smoking Cessation Hx Smoking History: Never smoked Have you smoked in the past 12 months: Yes Cigars Per Day: 1 Hx Alcohol Use: Yes (socially) Drug/Substance Use Hx: No Substance Use Type: None Hx Substance Use Treatment: No Review of Systems - Review of Systems Able to Perform ROS?: Yes Is the patient limited Kazakh proficient: Yes Constitutional: Yes: Chills, Fever (subjective, intermittent), Malaise ("feels like blah"). No: Night Sweats, Weakness HEENTM: No: Eye Pain, Recent change in vision, Nose Congestion, Throat Pain Respiratory: Yes: Cough (intermittent dry cough, never productive, not over past day). No: Orthopnea, Shortness of Breath, Wheezing, Productive cough Cardiac (ROS): Yes: Edema (RLE). No: Chest Pain, Irregular Heart Rate, Palpitations, Syncope, Chest Tightness ABD/GI: No: Blood Streaked Bowels, Constipated, Diarrhea, Nausea, Rectal Bleeding, Vomiting, Tarry Stools : No: Burning, Dysuria, Discharge, Incontinence, Pain Musculoskeletal: No: Muscle Pain, Muscle Weakness, Neck Pain Integumentary: Yes: See HPI, Erythema, Flushing (RLE 4th toe). No: Bruising, Change in Color, Change in Hair/Nails, Pruritus, Rash Neurological: No: Headache, Numbness, Tingling, Weakness Endocrine: Yes: Intolerance to Cold. No: Intolerance to Heat, Increased Thirst , Increased Urine Hematologic/Lymphatic: No: Anemia, Blood Clots, Easy Bleeding All Other Systems: Reviewed and Negative *Physical Exam - Vital Signs Last Vital Signs Temp Pulse Resp BP Pulse Ox 98.4 F 111 H 18 127/70 99 02/07/19 11:26 02/07/19 11:26 02/07/19 11:26 02/07/19 11:26 02/07/19 11:26 - Physical Exam 02/07/19 12:43 Vitals reviewed, notable for tachycardia Obese man, appears stated age, no acute distress, amputated RLE toe, swollen foot MMM, EOMI, PERRLA, NCAT Tachycardic, NSR, nl s1s2, no murmur appreciated CTABL, normal WOB, no wheezes / rales / rhonchi Obese, soft, non-distended, non-tender WWP, 2+ edema to the amezcua on RLE with well demarcated region of erythema extending up to the proximal 1/3 of the amezcua, grossly erythematous / open skin on 4th digit, able to range all toes, sensation reduced b/l LE c/w peripheral neuropathy, RLE is warm compared to the LLE, non-tender calf / posterior knee / thigh. CN grossly intact, ambulates with slow gait ED Treatment Course - LABORATORY CBC & Chemistry Diagram: 02/07/19 13:30 02/07/19 13:30 Medical Decision Making - Medical Decision Making 02/07/19 14:00 63yo M PMH DM, s/p amputation of right great toe, hypertension, myasthenia gravis, coronary artery disease s/p stenting presenting to ED with 2 weeks of chills and RLE swelling / redness with infected appearing right 4th toe in setting of recent admission for cellulitis with concern for osteo on same RLE. Complicated by PCN allergy (diarrhea as a kid, never confirmed), recent ABX course with IV Vancomycin during prior admission, d/c home with PO given patient refusal of PICC line. Exam concerning for open wound, well-demarcated RLE celluilitis. Afebrile, tachycardic. DDX: Cellulitis vs Osteo vs less likley DVT. - CBC, CMP, BCx, TSH - EKG, CXR, Xray R Foot - Duplex R Leg 02/07/19 15:21 - Cefepime - Vancomycin - Leukocytosis - Duplex and EKG Pending 02/07/19 16:21 - Duplex without DVT - Foot Xray suggestive of osteomyelitis - Chest Xray without acute pathology Admit: Med/Surg Discharge - Discharge Information Problems reviewed: Yes Clinical Impression/Diagnosis: Cellulitis Qualifiers: Site of cellulitis: extremity Site of cellulitis of extremity: lower extremity Laterality: right Qualified Code(s): L03.115 - Cellulitis of right lower limb Osteomyelitis Qualifiers: Osteomyelitis type: other acute Osteomyelitis location: foot Laterality: right Qualified Code(s): M86.171 - Other acute osteomyelitis, right ankle and foot Condition: Stable - Admission Yes - Follow up/Referral - Patient Discharge Instructions - Post Discharge Activity
--- NOTE | 2019-02-07 13:58 | PDOC ---
Documentation entered by Maye Carranza SCRIBE, acting as scribe for Rene Reyna MD. Rene Reyna MD: This documentation has been prepared by the Tere ramos Brenda, SCRIBE, under my direction and personally reviewed by me in its entirety. I confirm that the documentation accurately reflects all work, treatment, procedures, and medical decision making performed by me. Attending Attestation - Resident Resident Name: Dequan Rosado - ED Attending Attestation I have performed the following: I have examined & evaluated the patient, The case was reviewed & discussed with the resident, I agree w/resident's findings & plan, Exceptions are as noted - HPI HPI: 02/07/19 13:58 63 M with h/o DM, R great toe amputation, HTN, MG, CAD/stents, presenting with 2 weeks of R foot swelling. Pt reports redness and swelling around the R 4th toe. He endorses chills without fever. Pt was previously tx'ed for cellulitis of the same leg but refused PICC line for home IV abx. - Physicial Exam PE: 02/07/19 13:59 See resident exam - Medical Decision Making 02/07/19 14:03 63 M with infected R 4th toe. H/o osteo. - Labs, cultures - XR R foot - IV abx
[2019-02-07 14:07] LABS: BASO % 0.4 % (0-2.0); EOS % 0.3 % (0-4.5); HEMATOCRIT 29.2 % (35.4-49); HEMOGLOBIN 9.5 GM/dL (11.7-16.9); LYMPH % 4.4 % (8-40); MCH 26.3 pg (25.7-33.7); MCHC 32.5 g/dl (32.0-35.9); MEAN CELL VOLUME 80.7 fl (80-96); MEAN PLT VOLUME 7.2 fl (7.5-11.1); MONO % 4.7 % (3.8-10.2); NEUT % 90.2 % (42.8-82.8); PLATELET COUNT 646 K/MM3 (134-434); RBC 3.62 M/mm3 (4.00-5.60); RDW 15.8 % (11.9-15.9); WHITE BLOOD COUNT 21.5 K/mm3 (4.0-10.0)
[2019-02-07 14:27] LABS: ALBUMIN 2.1 g/dl (3.4-5.0); BILIRUBIN,TOTAL 0.4 mg/dL (0.2-1); BLOOD UREA NITROGEN 19.6 mg/dL (7-18); POTASSIUM 3.9 mmol/L (3.5-5.1); TOT PROT 7.1 g/dl (6.4-8.2)
[2019-02-07 14:44] LABS: ANISOCYTOSIS 0; MACROCYTOSIS 0; PLATELET ESTIMATE INCREASED
[2019-02-07] MEDS ORDERED: VANCOMYCIN HCL 1,500 MG in DEXTROSE 5%-WATER - 500 ML IVPB ONE (14:51)
[2019-02-07] MEDS ORDERED: CEFEPIME HCL/D5W 2 GM/50 ML BAG IVPB ONE (14:51)
[2019-02-07] MEDS ORDERED: CEFEPIME 1 GM/100 ML BAG IVPB ONE (16:15)
[2019-02-07] MEDS ORDERED: CEFEPIME 2 GM/100 ML BAG IVPB ONE (16:18)
--- NOTE | 2019-02-07 17:16 | HP ---
CHIEF COMPLAINT: Right 4th toe erythema, swelling PCP: Dr. Barajas HISTORY OF PRESENT ILLNESS: Patient is a 62 year old male with history significant for diabetes mellitus s/ p amputation of right great toe, osteomyelitis, hypertension, myasthenia gravis , coronary artery disease s/p 1 stent, presents with complaint of right 4th toe pain, swelling with associated bleeding and purulent discharge. Symptoms began this past November when he noticed a small punctate would at his left 4th toe. Patient does not recall any trauma, however does recall a hole in his shoe, and his socks overlying the area of his wound. Patient attempted covering the toe and applying Mupirocin ointment to the toe, without improvement of his symptoms. He has not yet seen any other physicians, or taken any recent antibiotics. Patient admits subjective flu- like symptoms of non productive cough, congestion , fevers, chills. Patient has not received infleunza vaccine this year. ER course was notable for: (1) WBC 21.5, afebrile to 98.4F (2) Radiograph right foot highly suggestive for osteomyelitis (3) Vancomycin, Cefepime Recent Travel: PAST MEDICAL HISTORY: diabetes mellitus, hypertension, myasthenia gravis, coronary artery disease PAST SURGICAL HISTORY: amputation right great toe (9 years ago), 1x stent in LAD (2001 at [facility]) Social History: Smoking: smokes cigars only in the summer. Denies cigarette smoking. Alcohol: Admits 1-2 drinks on social occasion Drugs: Denies Allergies Penicillins Allergy (Verified 02/07/19 11:35) HOME MEDICATIONS: Home Medications Medication Instructions Recorded Atorvastatin Ca [Lipitor] 20 mg PO HS 10/24/17 Azathioprine 75 mg PO BID 10/24/17 Hydrochlorothiazide 25 mg PO DAILY 10/24/17 Losartan Potassium 100 mg PO DAILY 10/24/17 Metoprolol Succinate 200 mg PO DAILY 10/24/17 Nifedipine ER [Procardia XL -] 120 mg PO DAILY 10/24/17 Nortriptyline HCl [Pamelor -] 10 mg PO HS 10/24/17 Novolin 70-30 100 Unit/ml Vial 68 units SQ AM 10/24/17 Tamsulosin HCl 0.4 mg PO HS 10/24/17 metFORMIN HCL [Metformin HCl] 2,000 mg PO BID 10/24/17 Finasteride 5 mg PO DAILY 01/02/20 REVIEW OF SYSTEMS CONSTITUTIONAL: Admits: subjective fever, Absent: fever, chills, diaphoresis, generalized weakness, malaise, loss of appetite, weight change HEENT: Absent: rhinorrhea, nasal congestion, throat pain, throat swelling, difficulty swallowing, mouth swelling, ear pain, eye pain, visual changes CARDIOVASCULAR: Absent: chest pain, syncope, palpitations, irregular heart rate, lightheadedness , peripheral edema RESPIRATORY: Absent: cough, shortness of breath, dyspnea with exertion, orthopnea, wheezing, stridor, hemoptysis GASTROINTESTINAL: Absent: abdominal pain, abdominal distension, nausea, vomiting, diarrhea, constipation, melena, hematochezia GENITOURINARY: Absent: dysuria, frequency, urgency, hesitancy, hematuria, flank pain, genital pain MUSCULOSKELETAL: Absent: myalgia, arthralgia, joint swelling, back pain, neck pain SKIN: Absent: rash, itching, pallor HEMATOLOGIC/IMMUNOLOGIC: Absent: easy bleeding, easy bruising, lymphadenopathy, frequent infections ENDOCRINE: Absent: unexplained weight gain, unexplained weight loss, heat intolerance, cold intolerance NEUROLOGIC: Absent: headache, focal weakness or paresthesias, dizziness, unsteady gait, seizure, mental status changes, bladder or bowel incontinence PSYCHIATRIC: Absent: anxiety, depression, suicidal or homicidal ideation, hallucinations. PHYSICAL EXAMINATION Vital Signs - 24 hr 02/07/19 11:26 Temperature 98.4 F Pulse Rate 111 H Respiratory 18 Rate Blood Pressure 127/70 O2 Sat by Pulse 99 Oximetry (%) GENERAL: Awake, alert, and fully oriented, in no acute distress. HEAD: Normocephalic, atraumatic EYES: Pupils equal, round and reactive to light, extraocular movements intact, sclera anicteric, conjunctiva clear. EARS, NOSE, THROAT: Oropharynx clear without exudates. Moist mucous membranes. NECK: Normal range of motion, supple without lymphadenopathy. LUNGS: Breath sounds equal, clear to auscultation bilaterally. No wheezes, and no crackles. No accessory muscle use. HEART: Regular rate and rhythm, normal S1 and S2 without murmur, rub or gallop. ABDOMEN: Obese. Soft, nontender, not distended. Normoactive bowel sounds x4 quadrants, no guarding, no rebound tenderness. No hepatomegaly or splenomegaly appreciated. UPPER EXTREMITIES: 2+ radial pulses, bilaterally. Strength 5/5 in flexion, extension, abduction, adduction B/L LOWER EXTREMITIES: 2+ pitting edema right lower extremity up to the knee. Scar from right great toe amputation appears cobbled. Right 4th toe erythematous, with dried blood and excoriated epidermis. No purulent drainage expressed. NEUROLOGICAL: Cranial nerves II-XII intact. Normal speech. No gross focal deficits. Sensation intact B/L upper and lower extremities. PSYCHIATRIC: Cooperative. Good eye contact. Appropriate mood and affect. SKIN: Erythema and callor at right lower extremity. Laboratory Results - last 24 hr 02/07/19 02/07/19 02/07/19 13:30 13:30 13:30 WBC 21.5 H RBC 3.62 L Hgb 9.5 L Hct 29.2 L D MCV 80.7 MCH 26.3 MCHC 32.5 RDW 15.8 Plt Count 646 H D MPV 7.2 L D Absolute Neuts (auto) 19.4 H Neutrophils % 90.2 H Neutrophils % (Manual) 84.0 H Band Neutrophils % 0.0 Lymphocytes % 4.4 L D Lymphocytes % (Manual) 11.0 Monocytes % 4.7 Monocytes % (Manual) 2 L Eosinophils % 0.3 Eosinophils % (Manual) 1.0 Basophils % 0.4 Basophils % (Manual) 1.0 Myelocytes % (Man) 1 Promyelocytes % (Man) 0 Blast Cells % (Manual) 0 Nucleated RBC % 0 Metamyelocytes 0 Hypochromia 0 Platelet Estimate Increased Platelet Comment Present Polychromasia 0 Poikilocytosis 0 Anisocytosis 0 Microcytosis 0 Macrocytosis 0 Sodium 136 Potassium 3.9 Chloride 102 Carbon Dioxide 26 Anion Gap 9 BUN 19.6 H Creatinine 1.0 Est GFR (CKD-EPI)AfAm 93.08 Est GFR (CKD-EPI)NonAf 80.31 Random Glucose 146 H Calcium 10.0 Total Bilirubin 0.4 AST 21 ALT 24 Alkaline Phosphatase 115 Total Protein 7.1 Albumin 2.1 L TSH 2.00 ASSESSMENT/PLAN: Patient is a 62 year old male with history significant for diabetes mellitus s/ p amputation of right great toe, osteomyelitis, hypertension, myasthenia gravis , coronary artery disease s/p 1 stent, presents with complaint of right 4th toe pain, swelling with associated bleeding and purulent discharge. Cellulitis vs Osteomyelitis -Xray of right foot highly suggestive of osteomyelitis. Follow MRI right lower extremity. -Patient endorses flu- like symptoms, chest radiograph without infiltrates. Influenza A/B swab. -Vancomycin 1000mg IV given in ED -Cefepime 2grams IV Q8 hours -ID consult (Dr. Hooker) -Podiatry consult (Dr. Olea) -Vascular surgery consult (Dr. Ordaz) -F/U Blood cultures -F/U wound cultures -Folow ESR, CRP Myasthenia Gravis -Azathioprine 75mg PO BID HTN -Nifedipine 120mg PO QD -Metoprolol succinate 200mg PO QD -Losartan 100mg PO QD -Hydrochlorothiazide 25mg PO QD DM -Hold oral metformin -ISS ACHS -BGM ACHS -Nortryptiline 10mg PO daily for neuropathy CAD -Continue Aspirin 81 mg PO HLD -Atorvastatin 20mg PO HS BPH -Tamsulosin 0.4mg PO HS FEN -No IV fluids. Encourage judicious oral hydration -Follow CMP -Diabetic, sodim controlled controlled diet Prophylaxis -Heparin 5000units subq TID Disposition -Admit to medical-surgical floor. Visit type - Emergency Visit Emergency Visit: Yes ED Registration Date: 02/07/19 Care time: The patient presented to the Emergency Department on the above date and was hospitalized for further evaluation of their emergent condition. - New Patient This patient is new to me today: Yes Date on this admission: 02/07/19 - Critical Care Critical Care patient: No ATTENDING PHYSICIAN STATEMENT I saw and evaluated the patient. I reviewed the resident's note and discussed the case with the resident. I agree with the resident's findings and plan as documented. SUBJECTIVE: OBJECTIVE: ASSESSMENT AND PLAN:
--- NOTE | 2019-02-07 19:18 | PN ---
Teaching Attending Note Name of Resident: Charles Trivedi ATTENDING PHYSICIAN STATEMENT I saw and evaluated the patient. I reviewed the resident's note and discussed the case with the resident. I agree with the resident's findings and plan as documented. SUBJECTIVE: complains of nasal congestion and cough. No sputum/hemoptysis/fever/ chills. OBJECTIVE: Afebrile, Hemodynamically Stable. Last Vital Signs Temp Pulse Resp BP Pulse Ox 98.4 F 111 H 18 127/70 99 02/07/19 11:26 02/07/19 11:26 02/07/19 11:26 02/07/19 11:26 02/07/19 11:26 HEENT - Atraumatic, Normocephalic. Heart - S1 S2, RRR lungs - Clear to auscultation Abdomen - High BMI. Soft, non-tender. Bowel Sounds normal. Extremities - No calf tenderness, venous stasis, R great toe amputation, R 4th toe swelling/discoloration/necrosis Laboratory Results - last 24 hr 02/07/19 02/07/19 02/07/19 13:30 13:30 13:30 WBC 21.5 H RBC 3.62 L Hgb 9.5 L Hct 29.2 L D MCV 80.7 MCH 26.3 MCHC 32.5 RDW 15.8 Plt Count 646 H D MPV 7.2 L D Absolute Neuts (auto) 19.4 H Neutrophils % 90.2 H Neutrophils % (Manual) 84.0 H Band Neutrophils % 0.0 Lymphocytes % 4.4 L D Lymphocytes % (Manual) 11.0 Monocytes % 4.7 Monocytes % (Manual) 2 L Eosinophils % 0.3 Eosinophils % (Manual) 1.0 Basophils % 0.4 Basophils % (Manual) 1.0 Myelocytes % (Man) 1 Promyelocytes % (Man) 0 Blast Cells % (Manual) 0 Nucleated RBC % 0 Metamyelocytes 0 Hypochromia 0 Platelet Estimate Increased Platelet Comment Present Polychromasia 0 Poikilocytosis 0 Anisocytosis 0 Microcytosis 0 Macrocytosis 0 Sodium 136 Potassium 3.9 Chloride 102 Carbon Dioxide 26 Anion Gap 9 BUN 19.6 H Creatinine 1.0 Est GFR (CKD-EPI)AfAm 93.08 Est GFR (CKD-EPI)NonAf 80.31 Random Glucose 146 H Calcium 10.0 Total Bilirubin 0.4 AST 21 ALT 24 Alkaline Phosphatase 115 Total Protein 7.1 Albumin 2.1 L TSH 2.00 Current Medications Generic Name Dose Route Start Last Admin Trade Name Freq PRN Reason Stop Dose Admin Aspirin 81 mg 02/08/19 10:00 Ecotrin - PO DAILY [facility] Atorvastatin Calcium 20 mg 02/07/19 22:00 Lipitor - PO HS [facility] Azathioprine 75 mg 02/07/19 22:00 Imuran - PO BID [facility] Finasteride 5 mg 02/08/19 10:00 Proscar - PO DAILY [facility] Heparin Sodium (Porcine) 5,000 unit 02/07/19 22:00 Heparin - SQ TID [facility] Hydrochlorothiazide 25 mg 02/08/19 10:00 Hctz - PO DAILY [facility] Cefepime HCl 2 gm in 50 mls @ 100 mls/hr 02/07/19 23:00 Maxipime 2gm Ivpb (Premix) IVPB Q8H [facility] Insulin Aspart 1 vial 02/07/19 22:00 Novolog Vial Sliding Scale - SQ ACHS [facility] Protocol Insulin Aspart 30 units 02/08/19 07:00 Novolog Mix 70/30 Vial SQ BIDAC [facility] Losartan Potassium 100 mg 02/08/19 10:00 Cozaar - PO DAILY [facility] Metoprolol Succinate 200 mg 02/08/19 10:00 Toprol Xl - PO DAILY [facility] Nifedipine 120 mg 02/08/19 10:00 Procardia Xl - PO DAILY [facility] Nortriptyline HCl 10 mg 02/07/19 22:00 Pamelor - PO HS [facility] Tamsulosin HCl 0.4 mg 02/07/19 22:00 Flomax - PO HS [facility] Vancomycin HCl 1,000 mg 02/08/19 05:00 Vancomycin (Pre-Docked) IVPB 02/08/19 05:01 ONCE ONE Protocol Home Medications Medication Instructions Recorded Atorvastatin Ca [Lipitor] 20 mg PO HS 10/24/17 Azathioprine 75 mg PO BID 10/24/17 Hydrochlorothiazide 25 mg PO DAILY 10/24/17 Losartan Potassium 100 mg PO DAILY 10/24/17 Metoprolol Succinate 200 mg PO DAILY 10/24/17 Nifedipine ER [Procardia XL -] 120 mg PO DAILY 10/24/17 Nortriptyline HCl [Pamelor -] 10 mg PO HS 10/24/17 Novolin 70-30 100 Unit/ml Vial 68 units SQ AM 10/24/17 Tamsulosin HCl 0.4 mg PO HS 10/24/17 metFORMIN HCL [Metformin HCl] 2,000 mg PO BID 10/24/17 Finasteride 5 mg PO DAILY 02/07/19 ASSESSMENT AND PLAN: 62 year old male with history of DM 2, PVD s/p R great toe amputation, Osteomyelitis, Hypertension, Myasthenia Gravis, CAD s/p PCI/1 stent, presents with complaint of right 4th toe pain, swelling with associated bleeding and purulent discharge for several months, as well as nasal congestion/cough. 1. Sepsis secondar to R 4th toe Cellulitis ? abscess vs osteomyelitis R 4th toe. Leukocytosis, WBC 21.5, HR 111 XRAY Foot suggestive of osteomyelitis. Empiric Cefepime/Vancomycin pending MRI foot. ID, Vascular, and Podiatry consults Blood Cx pending. 2. MG - continue Azathioprine 3. HTN - continue Nifedipine, Metoprolol, Losartan, HCTZ. 4. DM 2 - Maintain on Novolog sliding scale. Oral metformin held. 5. CAD s/p PCI/Stent - continue Aspirin. 6. HLD - continue Atorvastatin 7. BPH - continue Tamsulosin, Finasteride. DVT Px - Heparin SQ.
[2019-02-07] MEDS ORDERED: TAMSULOSIN HCL 0.4 MG CAP PO SCH (22:00)
[2019-02-07] MEDS ORDERED: NORTRIPTYLINE HCL 10 MG CAPSULE PO SCH (22:00)
[2019-02-07] MEDS ORDERED: ATORVASTATIN CA 20 MG TABLET (FP) PO SCH (22:00)
[2019-02-07] MEDS: CEFEPIME HCL/D5W 2 GM/50 ML BAG IVPB SCH (23:21)
[2019-02-07] MEDS: azaTHIOprine 50 MG TABLET PO SCH (23:54)
[2019-02-07] MEDS: HEPARIN NA (PORCINE) 5,000 UNITS/ML 1ML VIAL SQ SCH (23:56)
[2019-02-08] MEDS: INSULIN SLIDING SCALE (NOVOLOG) 1 VIAL SQ SCH ×5 (00:03→21:32)
[2019-02-08] MEDS ORDERED: ACETAMINOPHEN 325 MG TABLET (FP) PO PRN (00:40)
[2019-02-08] MEDS: CEFEPIME HCL/D5W 2 GM/50 ML BAG IVPB SCH (01:38)
[2019-02-08] MEDS: CEFEPIME 2 GM in DEXTROSE 5%-WATER 100 ML IVPB SCH ×2 (01:40→10:50)
[2019-02-08] MEDS ORDERED: PT OWN MED DRAWER 7, Y5N ONE ×3 (04:03→19:39)
[2019-02-08 04:26] LABS: URINE APPEARANCE CLEAR; URINE BILIRUBIN NEGATIVE (NEGATIVE); URINE COLOR YELLOW; URINE GLUCOSE (UA) NEGATIVE (NEGATIVE); URINE KETONE NEGATIVE (NEGATIVE); URINE LEUK ESTERASE NEGATIVE (NEGATIVE); URINE NITRITE NEGATIVE (NEGATIVE); URINE PROTEIN NEGATIVE (NEGATIVE); URINE UROBILINOGEN 0.2 mg/dL (0.2-1.0)
[2019-02-08] MEDS ORDERED: VANCOMYCIN 1 GM in D5W (PRE-DOCKED) 1,000 MG/250 ML IVPB ONE (05:00)
[2019-02-08] MEDS: HEPARIN NA (PORCINE) 5,000 UNITS/ML 1ML VIAL SQ SCH ×3 (06:49→21:31)
[2019-02-08] MEDS: INSULIN (NOVOLOG MIX 70/30) 100 UNITS/ML MDV SQ SCH ×2 (06:49→16:49)
[2019-02-08] MEDS ORDERED: TAMSULOSIN HCL 0.4 MG CAP PO SCH (07:33)
[2019-02-08] MEDS ORDERED: INSULIN (LEVEMIR) 100 UNITS/ML UNITS SQ ONE (07:45)
[2019-02-08] MEDS ORDERED: INSULIN (NOVOLOG MIX 70/30) 100 UNITS/ML MDV SQ ONE (07:45)
[2019-02-08 07:50] LABS: HEMATOCRIT 28.2 % (35.4-49); HEMOGLOBIN 9.2 GM/dL (11.7-16.9); MCH 26.4 pg (25.7-33.7); MCHC 32.6 g/dl (32.0-35.9); MEAN CELL VOLUME 80.9 fl (80-96); MEAN PLT VOLUME 7.1 fl (7.5-11.1); PLATELET COUNT 594 K/MM3 (134-434); RBC 3.49 M/mm3 (4.00-5.60); RDW 15.8 % (11.9-15.9)
[2019-02-08 08:14] LABS: BILIRUBIN,TOTAL 0.7 mg/dL (0.2-1); BLOOD UREA NITROGEN 19.4 mg/dL (7-18); CALCIUM 9.7 mg/dL (8.5-10.1); MAGNESIUM 1.5 mg/dL (1.8-2.4); PHOSPHOROUS 5.4 mg/dL (2.5-4.9); POTASSIUM 3.8 mmol/L (3.5-5.1); TOT PROT 6.8 g/dl (6.4-8.2)
[2019-02-08] MEDS ORDERED: MAGNESIUM SULF 50% (8.12 MEQ/2 ML-1 GM VIAL) IVPB ONE (08:45)
[2019-02-08 09:52] LABS: INR 1.39 (0.83-1.09); PROTHROMBIN TIME (PATIENT) 16.5 SEC (9.7-13.0)
[2019-02-08 09:55] LABS: ACTIVATED PTT 34.1 SECONDS (25.2-36.5)
[2019-02-08] MEDS ORDERED: ASPIRIN COATED 81 MG TABLET.EC PO SCH (10:00)
[2019-02-08] MEDS ORDERED: HYDROCHLOROTHIAZIDE 25 MG TABLET (FP) PO SCH (10:00)
[2019-02-08] MEDS ORDERED: NIFEdipine E.R 60 MG TABLET PO SCH (10:00)
[2019-02-08] MEDS ORDERED: LOSARTAN POTASSIUM 50 MG TABLET (FP) PO SCH (10:00)
[2019-02-08] MEDS ORDERED: FINASTERIDE 5 MG TABLET (FP) PO SCH (10:00)
[2019-02-08] MEDS: azaTHIOprine 50 MG TABLET PO SCH ×2 (10:50→21:31)
--- NOTE | 2019-02-08 11:46 | PN ---
Progress Note (short form) - Note Progress Note: ID consult dictated imp/reccd staph sepsis-bacteremia suspect toe source two weeks of left upper chest pain - area is indurated and painful at the sc joint, also c/o neck pain, shoulder no erythema or effusion continue vanco/cefepime chest ct to evaluate-r/o sc joint septic arthritis/osteo ekg/echo-r/o endocarditis mri of cspine r/o abscess/osteo podiatry to see for debridement/amputation of the toe Myasthenia gravis diabetes pen allergy d/w hostpitalist Problem List - Problems (1) Staphylococcal sepsis Code(s): A41.2 - SEPSIS DUE TO UNSPECIFIED STAPHYLOCOCCUS (2) Osteomyelitis Code(s): M86.9 - OSTEOMYELITIS, UNSPECIFIED Qualifiers: Osteomyelitis type: other acute Osteomyelitis location: foot Laterality: right Qualified Code(s): M86.171 - Other acute osteomyelitis, right ankle and foot (3) Septic arthritis of left sternoclavicular joint Code(s): M00.9 - PYOGENIC ARTHRITIS, UNSPECIFIED (4) Myasthenia gravis Code(s): G70.00 - MYASTHENIA GRAVIS WITHOUT (ACUTE) EXACERBATION (5) Penicillin allergy Code(s): Z88.0 - ALLERGY STATUS TO PENICILLIN (6) Diabetes Code(s): E11.9 - TYPE 2 DIABETES MELLITUS WITHOUT COMPLICATIONS
--- NOTE | 2019-02-08 12:34 | CONSULT ---
Consult - text type - Consultation Consultation Note: PODIATRY CONSULT Patient is a 62 year old male with history significant for diabetes mellitus s/ p amputation of right great toe, osteomyelitis, hypertension, myasthenia gravis , coronary artery disease s/p 1 stent, presents with complaint of right 4th toe pain, swelling with associated bleeding and purulent discharge. Patient states that roughly 3 months ago his toe began to swell. Roughly 2 weeks ago states the drainage stopped but marianela has alot of sweling in the foot and has pain in shoulder now. States that he may have a shoulder infection? Denies any other pedal complaints. O: Vasc: DP/PT non palable, severe overlying edema noted, Cap fill time wnl, warm to touch Derm: prior hallux amputation healed well, severe enlargment of 4th digit with surrounding erythema, no active open wound, no drainage noted, mild pop noted, no crepitus noted Neuro: Grossly decreased MRI: Gross destruction of the 4th digit and MT head, apparent charcot like changes in the midfoot; xray: gross destrction 4th dig/MT, charcot changes ' Blood culture + Febrile 98.4 WBC 19.0 A: 62 y/o male with severe degeneration from osteomyelitis of the 4th MT; diabetic P: Evaluated and reviewed Discussed findings with patient; needs amputation given prior hallux amputation forefoot would be non viable with just 4th digit amputation; will require TMA Is NPO at this time Will try to get on the schedule for this evening as patient is septic Will require chcf IV abx as well as outpatient even after amputation. Will f/u with patient today if able to get put on schedule. Continue NPO status.
--- NOTE | 2019-02-08 13:24 | EKG ---
Test Reason : Blood Pressure : / mmHG Vent. Rate : 097 BPM Atrial Rate : 097 BPM P-R Int : 156 ms QRS Dur : 102 ms QT Int : 340 ms P-R-T Axes : 031 -31 028 degrees QTc Int : 431 ms NORMAL SINUS RHYTHM LEFT AXIS DEVIATION MINIMAL VOLTAGE CRITERIA FOR LVH, MAY BE NORMAL VARIANT ABNORMAL ECG NO PREVIOUS ECGS AVAILABLE Confirmed by MARY GAVIN MD ([id number]) on 02/08/2019 1:23:38 PM Referred By: Confirmed By:MARY GAVIN MD
--- NOTE | 2019-02-08 14:41 | ECHO ---
Name: SHAN PRUITT Exam:Adult Echocardiogram Study Date: 02/08/2019 01:03 PM Age: 63 yrs Reason For Study: evaluate lv fn Height: 70 in Weight: 241 lb BSA: 2.3 m2 MMode/2D Measurements & Calculations IVSd: 1.3 cm Ao root diam: 4.0 cm LVIDd: 5.6 cm LA dimension: 3.3 cm LVIDs: 3.8 cm ACS: 2.4 cm LVPWd: 0.90 cm IVSs: 1.5 cm LVPWs: 1.1 cm EDV(Teich): 150.9 ml ESV(Teich): 62.3 ml Doppler Measurements & Calculations MV E max samir: 85.6 cm/sec Ao V2 max: 139.6 cm/sec MV A max samir: 91.6 cm/sec Ao max P.8 mmHg MV E/A: 0.94 Ao V2 mean: 105.7 cm/sec Ao mean P.0 mmHg Ao V2 VTI: 26.8 cm MR max samir: 332.4 cm/sec TR max samir: 254.6 cm/sec MR max P.5 mmHg TR max P.9 mmHg PI end-d samir: 82.8 cm/sec Med Peak E' Samir: 7.0 cm/sec Med E/e': 12.2 Lat Peak E' Samir: 6.7 cm/sec Lat E/e': 12.8 Procedure A complete two-dimensional transthoracic echocardiogram was performed (2D, M-mode, Doppler and color flow Doppler). Left Ventricle The left ventricular size, thickness and function are normal. The left ventricular ejection fraction is normal. Ejection Fraction = 60-65%. The left ventricular wall motion is normal. Right Ventricle The right ventricle is normal in size and function. Atria Normal left and right atrial size and function. Mitral Valve There is no mitral regurgitation noted. Tricuspid Valve There is trace tricuspid regurgitation. Right ventricular systolic pressure is normal. Aortic Valve No hemodynamically significant valvular aortic stenosis. No aortic regurgitation is present. Pulmonic Valve There is no pulmonic valvular regurgitation. Great Vessels Mild aortic root dilatation. Pericardium/Pleura There is no pericardial effusion. Interpretation Summary The left ventricular size, thickness and function are normal The right ventricle is normal in size and function. There is trace tricuspid regurgitation. Mild aortic root dilatation. MD Rufino Alexander 02/08/2019 02:40 PM
--- NOTE | 2019-02-08 15:00 | PN ---
Teaching Attending Note Name of Resident: Reva Bonilla ATTENDING PHYSICIAN STATEMENT I saw and evaluated the patient. I reviewed the resident's note and discussed the case with the resident. I agree with the resident's findings and plan as documented. SUBJECTIVE: Feels well. No fever/chills. OBJECTIVE: Afebrile, Hemodynamically Stable. Last Vital Signs Temp Pulse Resp BP Pulse Ox 98.4 F 98 H 20 154/73 97 02/08/19 11:00 02/08/19 11:00 02/08/19 11:02/08/19 11:02/08/19 02:41 HEENT - Atraumatic, Normocephalic. Heart - S1 S2, RRR lungs - Clear to auscultation Abdomen - High BMI. Soft, non-tender. Bowel Sounds normal. Extremities - No calf tenderness, venous stasis, R great toe amputation, R 4th toe swelling/discoloration/necrosis Laboratory Results - last 24 hr 02/07/19 02/07/19 02/07/19 13:30 13:30 23:52 WBC RBC Hgb Hct MCV MCH MCHC RDW Plt Count MPV ESR 99 H PT with INR INR PTT (Actin FS) Sodium Potassium Chloride Carbon Dioxide Anion Gap BUN Creatinine Est GFR (CKD-EPI)AfAm Est GFR (CKD-EPI)NonAf POC Glucometer 100 Random Glucose Calcium Phosphorus Magnesium Total Bilirubin AST ALT Alkaline Phosphatase C-Reactive Protein 25.5 H Total Protein Albumin TSH 2.00 Urine Color Urine Appearance Urine pH Ur Specific [place] Urine Protein Urine Glucose (UA) Urine Ketones Urine Blood Urine Nitrite Urine Bilirubin Urine Urobilinogen Ur Leukocyte Esterase Blood Type Antibody Screen 02/08/19 02/08/19 02/08/19 03:30 06:48 07:15 WBC 19.0 H RBC 3.49 L Hgb 9.2 L Hct 28.2 L MCV 80.9 MCH 26.4 MCHC 32.6 RDW 15.8 Plt Count 594 H MPV 7.1 L ESR PT with INR INR PTT (Actin FS) Sodium Potassium Chloride Carbon Dioxide Anion Gap BUN Creatinine Est GFR (CKD-EPI)AfAm Est GFR (CKD-EPI)NonAf POC Glucometer 192 Random Glucose Calcium Phosphorus Magnesium Total Bilirubin AST ALT Alkaline Phosphatase C-Reactive Protein Total Protein Albumin TSH Urine Color Yellow Urine Appearance Clear Urine pH 6.0 Ur Specific [place] 1.009 L Urine Protein Negative Urine Glucose (UA) Negative Urine Ketones Negative Urine Blood Negative Urine Nitrite Negative Urine Bilirubin Negative Urine Urobilinogen 0.2 Ur Leukocyte Esterase Negative Blood Type Antibody Screen 02/08/19 02/08/19 02/08/19 07:15 07:15 07:15 WBC RBC Hgb Hct MCV MCH MCHC RDW Plt Count MPV ESR PT with INR 16.50 H INR 1.39 H PTT (Actin FS) 34.1 Sodium 133 L Potassium 3.8 Chloride 96 L Carbon Dioxide 28 Anion Gap 8 BUN 19.4 H Creatinine 1.0 Est GFR (CKD-EPI)AfAm 93.08 Est GFR (CKD-EPI)NonAf 80.31 POC Glucometer Random Glucose 206 H Calcium 9.7 Phosphorus 5.4 H Magnesium 1.5 L Total Bilirubin 0.7 AST 19 ALT 22 Alkaline Phosphatase 106 C-Reactive Protein Total Protein 6.8 Albumin 2.0 L TSH Urine Color Urine Appearance Urine pH Ur Specific [place] Urine Protein Urine Glucose (UA) Urine Ketones Urine Blood Urine Nitrite Urine Bilirubin Urine Urobilinogen Ur Leukocyte Esterase Blood Type AB POSITIVE Antibody Screen Negative 02/08/19 02/08/19 08:05 11:07 WBC RBC Hgb Hct MCV MCH MCHC RDW Plt Count MPV ESR PT with INR INR PTT (Actin FS) Sodium Potassium Chloride Carbon Dioxide Anion Gap BUN Creatinine Est GFR (CKD-EPI)AfAm Est GFR (CKD-EPI)NonAf POC Glucometer 222 Random Glucose Calcium Phosphorus Magnesium Total Bilirubin AST ALT Alkaline Phosphatase C-Reactive Protein Total Protein Albumin TSH Urine Color Urine Appearance Urine pH Ur Specific [place] Urine Protein Urine Glucose (UA) Urine Ketones Urine Blood Urine Nitrite Urine Bilirubin Urine Urobilinogen Ur Leukocyte Esterase Blood Type AB POSITIVE Antibody Screen Current Medications Generic Name Dose Route Start Last Admin Trade Name Freq PRN Reason Stop Dose Admin Acetaminophen 650 mg 02/08/19 00:40 02/08/19 01:40 Tylenol - PO 650 mg Q6H PRN Administration Fever Or Pain Aspirin 81 mg 02/08/19 10:00 02/08/19 09:21 Ecotrin - PO 81 mg DAILY JUSTINE Administration Atorvastatin Calcium 20 mg 02/07/19 22:00 02/07/19 23:55 Lipitor - PO 20 mg HS JUSTINE Administration Azathioprine 75 mg 02/07/19 22:00 02/08/19 10:50 Imuran - PO 75 mg BID JUSTINE Administration Finasteride 5 mg 02/08/19 10:00 02/08/19 09:21 Proscar - PO 5 mg DAILY JUSTINE Administration Heparin Sodium (Porcine) 5,000 unit 02/07/19 22:00 02/08/19 14:41 Heparin - SQ Not Given TID JUSTINE Hydrochlorothiazide 25 mg 02/08/19 10:00 02/08/19 09:21 Hctz - PO 25 mg DAILY JUSTINE Administration Cefepime HCl 2 gm/ Dextrose 100 mls @ 200 mls/hr 02/08/19 18:00 IVPB Q8H-IV JUSTINE Vancomycin HCl 1,500 mg/ 500 mls @ 250 mls/hr 02/08/19 16:00 Dextrose IVPB Q12H JUSTINE Protocol Insulin Aspart 1 vial 02/07/19 22:00 02/08/19 11:09 Novolog Vial Sliding Scale - SQ 6 units ACHS JUSTINE Administration Protocol Insulin Aspart 30 units 02/08/19 07:00 02/08/19 06:49 Novolog Mix 70/30 Vial SQ 30 units BIDAC JUSTINE Administration Losartan Potassium 100 mg 02/08/19 10:00 02/08/19 09:21 Cozaar - PO 100 mg DAILY JUSTINE Administration Metoprolol Succinate 200 mg 02/08/19 10:00 02/08/19 09:20 Toprol Xl - PO 200 mg DAILY JUSTINE Administration Nifedipine 120 mg 02/08/19 10:00 02/08/19 09:20 Procardia Xl - PO 120 mg DAILY JUSTINE Administration Nortriptyline HCl 10 mg 02/07/19 22:00 02/07/19 23:56 Pamelor - PO 10 mg HS JUSTINE Administration Tamsulosin HCl 0.4 mg 02/08/19 07:33 02/08/19 09:20 Flomax - PO 0.4 mg DAILY@0830 JUSTINE Administration Home Medications Medication Instructions Recorded Atorvastatin Ca [Lipitor] 20 mg PO HS 10/24/17 Hydrochlorothiazide 25 mg PO DAILY 10/24/17 Losartan Potassium 100 mg PO DAILY 10/24/17 Metoprolol Succinate 200 mg PO DAILY 10/24/17 Nifedipine ER [Procardia XL -] 120 mg PO DAILY 10/24/17 Nortriptyline HCl [Pamelor -] 10 mg PO HS 10/24/17 Novolin 70-30 100 Unit/ml Vial 68 units SQ AM 10/24/17 Tamsulosin HCl 0.4 mg PO HS 10/24/17 Aspirin [ASA -] 81 mg PO DAILY 02/07/19 Finasteride 5 mg PO DAILY 02/07/19 Metformin HCl [Glucophage] 1,000 mg PO BID 02/08/19 ASSESSMENT AND PLAN: 62 year old male with history of DM 2, PVD s/p R great toe amputation, Osteomyelitis, Hypertension, Myasthenia Gravis, CAD s/p PCI/1 stent, presents with complaint of right 4th toe pain, swelling with associated bleeding and purulent discharge for several months, as well as nasal congestion/cough. 1. Sepsis secondary to R 4th toe Osteomyelitis with overlying cellulitis and Bacteremia. Leukocytosis improving. Blood Cx positve for gram pos cocci in clusters. MRI confirmed osteomyelitis 4th toe with celllulitis of R foot. TTE - no evidence of vegetations or valvular dysfunction. Continue Cefepime/Vancomycin pending MRI foot. ID and Podiatry following. Vascular Sx consulted. At moderate risk for proposed procedure, medically optimized for toe amputation. 2. MG - continue Azathioprine 3. HTN - continue Nifedipine, Metoprolol, Losartan. HCTZ held in favor of josh- op IV hydration. 4. DM 2 - Maintain on Novolog sliding scale. Oral metformin held. 5. CAD s/p PCI/Stent - continue Aspirin/BB/ACEI/Statin. 6. HLD - continue Atorvastatin 7. BPH - continue Tamsulosin, Finasteride. 8. Hypomagnesemia - repleted. DVT Px - Heparin SQ.
--- NOTE | 2019-02-08 15:05 | EKG ---
Test Reason : Blood Pressure : / mmHG Vent. Rate : 099 BPM Atrial Rate : 099 BPM P-R Int : 160 ms QRS Dur : 094 ms QT Int : 336 ms P-R-T Axes : 039 -43 040 degrees QTc Int : 431 ms NORMAL SINUS RHYTHM LEFT AXIS DEVIATION MODERATE VOLTAGE CRITERIA FOR LVH, MAY BE NORMAL VARIANT ABNORMAL ECG WHEN COMPARED WITH ECG OF 07-FEB-2019 13:29, NO SIGNIFICANT CHANGE WAS FOUND Confirmed by ROMAINE FOSTER, MARY ([id number]) on 02/08/2019 3:04:46 PM Referred By: VINICIUS UMAÑA Confirmed By:MARY GAVIN MD
--- NOTE | 2019-02-08 15:47 | CONS ---
DATE OF CONSULTATION: DATE OF DICTATION: 02/08/2019 REQUESTING PHYSICIAN: Hospitalist Service. HOSPITAL INSURANCE REPRESENTATIVE: Romi Crawford MD HISTORY OF PRESENT ILLNESS: This is a 63-year-old man, he has a history of diabetes since 1986, myasthenia gravis 2010. He has a history of amputation of his big toe in 2009 at [facility]. He was hospitalized in October 2017 with cellulitis of his foot. He now returned, more than 1 year later, giving a history of pain and swelling of his right fourth toe. He has had drainage from the toe and swelling for the last 3 months. He has been using Mupirocin cream. About 2 weeks ago the drainage stopped. At about the same time he recalls starting to feel like he had a flu with chills and fever and congestion at home, so he took some [id number] cold medicines. He did not seek any medical care. He has not been to the doctor in months. He has not followed up with his neurologist or with his primary care doctor. In the ER he was noted to have a white count of 21.5. X-ray of his foot was notable for bone destruction of the fourth toe. He got vancomycin and cefepime. ALLERGIES: He is allergic to PENICILLIN. The nature of the allergy is unknown. His PENICILLIN ALLERGY is since he was a baby. He is unaware of the nature of the allergy. PAST SURGICAL HISTORY: His surgical history is notable for amputation of the right great toe 9 years ago and he has had one stent placed in 2001. SOCIAL HISTORY: He smoked cigars in the summer, 1 to 2 drinks socially. 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 He is followed by a PCP at [facility] that he has not seen in months and he missed his followup with his neurologist. MEDICATIONS: His medications at home include losartan, aspirin, tamsulosin, inuslin, nifedipine, hydrochlorothiazide, finasteride, atorvastatin, Pamelor, metoprolol, Imuran and metformin. REVIEW OF SYSTEMS: Is notable for the fact that 2 weeks ago he developed what he described as left chest and left shoulder pain, which has been severe. He has been trying patches and trying to get comfortable. He notes that he had pain in the left chest, upward part of his chest, that radiates to his left shoulder and he has pain in the back at his left neck. PHYSICAL EXAMINATION: General: On physical exam he is awake and alert. Vitals: His temperature is 98.5. His pulse is 98, blood pressure 115/64, respiratory rate of 20. He weighs 109 kg and he is saturating 97% on room air. HEENT: He is normocephalic. His eyes are anicteric. He has no conjunctival hemorrhages. Neck: His neck is supple. He does have some discomfort at the base of his neck. He has no erythema or swelling of the left shoulder. He does have an uneven left chest wall. He has got some induration and swelling of the left sternoclavicular side and it is very tender to touch. He is able to move his left shoulder. Heart: His heart is regular rate and rhythm. I do not hear a murmur. Lungs: His lungs are clear to auscultation. Abdomen: His abdomen is soft, nontender. Extremities: Are notable for the fourth toe which is like a cauliflower and currently has no drainage. LABORATORY DATA: White count is 19,000, hemoglobin 9.2, platelets of 594. BUN 19, creatinine 1 with glucose of 206. His liver function tests are normal. CRP is 25. Sedimentation rate is 99. Urinalysis is negative and blood cultures are growing gram-positive coccyx in clusters in 4 of 4 bottles. SUMMARY: 1. In summary, this is a 63-year-old man with staph sepsis bacteremia. I suspect toe sores, 2 weeks of left upper chest pain. The area is indurated and painful at the sternoclavicular joint, also complains of neck pain. I would continue his vancomycin and cefepime. I would get a CAT scan of his chest to rule out sternoclavicular joint septic arthritis and ostemyelitis. He needs an EKG and echo to rule out endocarditis. Blood cultures have been repeated. He needs an MRI of his C-spine to rule out osteoarthritis and abscess. Podiatry has been called to see him for debridement and amputation of the toe for source control. 2. Myasthenia gravis. 3. History of diabetes. The case was discussed at length with Dr. Turpin, the hospitalist. ROMI CRAWFORD M.D. [id number] INES
[2019-02-08] MEDS ORDERED: VANCOMYCIN HCL 1,500 MG in DEXTROSE 5%-WATER - 500 ML IVPB SCH ×2 (16:00→17:00)
[2019-02-08] MEDS ORDERED: VANCOMYCIN HCL 1,500 MG in DEXTROSE 5%-WATER - 250 ML IVPB SCH (17:00)
[2019-02-08] MEDS ORDERED: MIDAZOLAM HCL 2 MG/2 ML SINGLE DOSE VIAL ONE (17:44)
--- NOTE | 2019-02-08 17:49 | PN ---
Physical Exam: SUBJECTIVE: Patient seen and examined. No acute events overnight. Complains of left shoulder pain that has been bothering him for the last few weeks. Denies pain in his feet. He has been applying mupurocin to his affected toe but it has not been getting better. Denies chest pain, SOB, chills, abd pain. OBJECTIVE: Vital Signs Period Temp Pulse Resp BP Sys/[place] Pulse Ox Last 24 Hr 98.1 F-98.5 F 93-103 20-20 100-154/55-77 95-97 GENERAL: The patient is awake, alert, and fully oriented, in no acute distress. HEAD: Normal with no signs of trauma. EYES: PERRL, EOMI, no scleral icterus ENT: dry mucous membranes NECK: Trachea midline, supple LUNGS: Breath sounds equal, clear to auscultation bilaterally, no wheezes, no crackles, no accessory muscle use. HEART: Regular rate and rhythm, S1, S2 without murmur, rub or gallop. ABDOMEN: Soft, nontender, nondistended, normoactive bowel sounds, no guarding, no rebound, no hepatosplenomegaly, no masses. EXTREMITIES: 2+ pulses, warm, well-perfused, 2+ edema of the right lower extremity. Full passive and active range of motion of left shoulder without pain. No swelling, erythema, tenderness to palpation at left acromioclaviclar joint. Right great toe amputation site appears cobbled. Right 4th toe appears dry, erythematous with dried blood, no active bleeding or purulent discharge. No pain on palpation. NEUROLOGICAL: Normal speech, gait not observed. Decreased sensation on bilateral feet. PSYCH: Normal mood, normal affect. SKIN: Warm, dry. Right foot changes as above. Laboratory Results - last 24 hr 02/07/19 02/07/19 02/07/19 13:30 13:30 23:52 WBC RBC Hgb Hct MCV MCH MCHC RDW Plt Count MPV ESR 99 H PT with INR INR PTT (Actin FS) Sodium Potassium Chloride Carbon Dioxide Anion Gap BUN Creatinine Est GFR (CKD-EPI)AfAm Est GFR (CKD-EPI)NonAf POC Glucometer 100 Random Glucose Calcium Phosphorus Magnesium Total Bilirubin AST ALT Alkaline Phosphatase C-Reactive Protein 25.5 H Total Protein Albumin TSH 2.00 Urine Color Urine Appearance Urine pH Ur Specific [place] Urine Protein Urine Glucose (UA) Urine Ketones Urine Blood Urine Nitrite Urine Bilirubin Urine Urobilinogen Ur Leukocyte Esterase Blood Type Antibody Screen 02/08/19 02/08/19 02/08/19 03:30 06:48 07:15 WBC 19.0 H RBC 3.49 L Hgb 9.2 L Hct 28.2 L MCV 80.9 MCH 26.4 MCHC 32.6 RDW 15.8 Plt Count 594 H MPV 7.1 L ESR PT with INR INR PTT (Actin FS) Sodium Potassium Chloride Carbon Dioxide Anion Gap BUN Creatinine Est GFR (CKD-EPI)AfAm Est GFR (CKD-EPI)NonAf POC Glucometer 192 Random Glucose Calcium Phosphorus Magnesium Total Bilirubin AST ALT Alkaline Phosphatase C-Reactive Protein Total Protein Albumin TSH Urine Color Yellow Urine Appearance Clear Urine pH 6.0 Ur Specific [place] 1.009 L Urine Protein Negative Urine Glucose (UA) Negative Urine Ketones Negative Urine Blood Negative Urine Nitrite Negative Urine Bilirubin Negative Urine Urobilinogen 0.2 Ur Leukocyte Esterase Negative Blood Type Antibody Screen 02/08/19 02/08/19 02/08/19 07:15 07:15 07:15 WBC RBC Hgb Hct MCV MCH MCHC RDW Plt Count MPV ESR PT with INR 16.50 H INR 1.39 H PTT (Actin FS) 34.1 Sodium 133 L Potassium 3.8 Chloride 96 L Carbon Dioxide 28 Anion Gap 8 BUN 19.4 H Creatinine 1.0 Est GFR (CKD-EPI)AfAm 93.08 Est GFR (CKD-EPI)NonAf 80.31 POC Glucometer Random Glucose 206 H Calcium 9.7 Phosphorus 5.4 H Magnesium 1.5 L Total Bilirubin 0.7 AST 19 ALT 22 Alkaline Phosphatase 106 C-Reactive Protein Total Protein 6.8 Albumin 2.0 L TSH Urine Color Urine Appearance Urine pH Ur Specific [place] Urine Protein Urine Glucose (UA) Urine Ketones Urine Blood Urine Nitrite Urine Bilirubin Urine Urobilinogen Ur Leukocyte Esterase Blood Type AB POSITIVE Antibody Screen Negative 02/08/19 02/08/19 02/08/19 08:05 11:07 16:46 WBC RBC Hgb Hct MCV MCH MCHC RDW Plt Count MPV ESR PT with INR INR PTT (Actin FS) Sodium Potassium Chloride Carbon Dioxide Anion Gap BUN Creatinine Est GFR (CKD-EPI)AfAm Est GFR (CKD-EPI)NonAf POC Glucometer 222 243 Random Glucose Calcium Phosphorus Magnesium Total Bilirubin AST ALT Alkaline Phosphatase C-Reactive Protein Total Protein Albumin TSH Urine Color Urine Appearance Urine pH Ur Specific [place] Urine Protein Urine Glucose (UA) Urine Ketones Urine Blood Urine Nitrite Urine Bilirubin Urine Urobilinogen Ur Leukocyte Esterase Blood Type AB POSITIVE Antibody Screen Active Medications Generic Name Dose Route Start Last Admin Trade Name Garyq PRN Reason Stop Dose Admin Acetaminophen 650 mg 02/08/19 00:40 02/08/19 01:40 Tylenol - PO 650 mg Q6H PRN Administration Fever Or Pain Aspirin 81 mg 02/08/19 10:00 02/08/19 09:21 Ecotrin - PO 81 mg DAILY JUSTINE Administration Atorvastatin Calcium 20 mg 02/07/19 22:00 02/07/19 23:55 Lipitor - PO 20 mg HS JUSTINE Administration Azathioprine 75 mg 02/07/19 22:00 02/08/19 10:50 Imuran - PO 75 mg BID JUSTINE Administration Finasteride 5 mg 02/08/19 10:00 02/08/19 09:21 Proscar - PO 5 mg DAILY JUSTINE Administration Heparin Sodium (Porcine) 5,000 unit 02/07/19 22:00 02/08/19 14:41 Heparin - SQ Not Given TID JUSTINE Hydrochlorothiazide 25 mg 02/08/19 10:00 02/08/19 09:21 Hctz - PO 25 mg DAILY JUSTINE Administration Cefepime HCl 2 gm/ Dextrose 100 mls @ 200 mls/hr 02/08/19 18:00 IVPB Q8H-IV JUSTINE Vancomycin HCl 1,500 mg/ 500 mls @ 250 mls/hr 02/08/19 16:00 02/08/19 17:16 Dextrose IVPB Not Given Q12H [facility] Protocol Insulin Aspart 1 vial 02/07/19 22:00 02/08/19 16:48 Novolog Vial Sliding Scale - SQ 6 units ACHS JUSTINE Administration Protocol Insulin Aspart 30 units 02/08/19 07:00 02/08/19 16:49 Novolog Mix 70/30 Vial SQ Not Given BIDAC [facility] Losartan Potassium 100 mg 02/08/19 10:00 02/08/19 09:21 Cozaar - PO 100 mg DAILY JUSTINE Administration Metoprolol Succinate 200 mg 02/08/19 10:00 02/08/19 09:20 Toprol Xl - PO 200 mg DAILY JUSTINE Administration Nifedipine 120 mg 02/08/19 10:00 01/03/20 09:20 Procardia Xl - PO 120 mg DAILY JUSTINE Administration Nortriptyline HCl 10 mg 02/07/19 22:00 02/07/19 23:56 Pamelor - PO 10 mg HS JUSTINE Administration Tamsulosin HCl 0.4 mg 02/08/19 07:33 02/08/19 09:20 Flomax - PO 0.4 mg DAILY@0830 JUSTINE Administration ASSESSMENT/PLAN: 62 y/o/m with history significant for diabetes mellitus s/p amputation of right great toe, osteomyelitis, hypertension, myasthenia gravis, coronary artery disease s/p 1 stent, presented with complaint of right 4th toe pain, swelling with associated bleeding and purulent discharge. #Sepsis 2/2 Osteomyelitis of Right 4th toe - Xray of right foot highly suggestive of osteomyelitis. - MRI with extensive cellulitis of the foot with OM of the 4th metatarsal and the 4th toe. Moderate edema extending up the foot - nonspecific in etiology and may be related to osteomyelitis or neuropathic joint. - Continue Vancomycin, Cefepime (started on 02/07) - ID consult (Dr. Hooker) - Chest CT to r/o septic joint vs. osteomyelitis of the clavicula -> read pending - MRI of the neck to rule out abscess/osteomyelitis of the spine - ECHO - no signs of vegatations - Podiatry consult (Dr. Olea) - patient to require TMA, likely to go to OR today - Vascular surgery consult (Dr. Ordaz) - Blood cultures positive preliminary - likely staph - right toe as source - ESR elevated #Myasthenia Gravis - Azathioprine 75mg PO BID #HTN - Nifedipine 120mg PO QD - Metoprolol succinate 200mg PO QD - Losartan 100mg PO QD - Hydrochlorothiazide 25mg PO QD #DM - Hold oral metformin - ISS ACHS - BGM ACHS - Nortryptiline 10mg PO daily for neuropathy #CAD - Continue Aspirin 81 mg PO #HLD - Atorvastatin 20mg PO HS #BPH - Tamsulosin 0.4mg PO HS #FEN - No IV fluids. Encourage judicious oral hydration - Diabetic, sodium controlled diet - Hypo Mg, repleted - Monitor and replete lytes as needed #Prophylaxis - Heparin 5000units subq TID #Disposition - Patient to go for TMA today as per Podiatry, will evaluate s/p surgery Visit type - Emergency Visit Emergency Visit: Yes ED Registration Date: 02/07/19 Care time: The patient presented to the Emergency Department on the above date and was hospitalized for further evaluation of their emergent condition. - New Patient This patient is new to me today: Yes Date on this admission: 02/08/19 - Critical Care Critical Care patient: No ATTENDING PHYSICIAN STATEMENT I saw and evaluated the patient. I reviewed the resident's note and discussed the case with the resident. I agree with the resident's findings and plan as documented. SUBJECTIVE: OBJECTIVE: ASSESSMENT AND PLAN:
[2019-02-08] MEDS ORDERED: CEFEPIME 2 GM in DEXTROSE 5%-WATER 100 ML IVPB SCH (18:00)
[2019-02-08] MEDS ORDERED: LIDOCAINE HCL 2% (20ML MULTI-DOSE VIAL) ONE (18:12)
[2019-02-08] MEDS ORDERED: VANCOMYCIN 1,000 MG VIAL (RESTRICTED TO ID ONLY) IVPB ONE (18:15)
[2019-02-08] MEDS ORDERED: CEFEPIME HCL 2 GM VIAL (RESTRICTED TO ID) IVPB ONE (18:42)
[2019-02-08] MEDS ORDERED: LIDOCAINE HCL 2% (50ML VIAL) INF ONE (18:52)
[2019-02-08] MEDS ORDERED: ONDANSETRON 4 MG/2 ML VIAL IVPUSH PRN ×2 (19:13→19:54)
[2019-02-08] MEDS ORDERED: ACETAMINOPHEN 1000 MG/100 ML VIAL (NON FORMULARY) IVPB ONE ×2 (19:13→19:54)
[2019-02-08] MEDS ORDERED: LACTATED RINGERS SOLUTION 1,000 ML IV SCH ×2 (19:15→19:54)
[2019-02-08] MEDS ORDERED: BUPIVACAINE HCL/PF 0.5% (5 MG/ML) 30 ML VIAL IJ ONE (19:15)
--- NOTE | 2019-02-08 19:23 | OP ---
Operative Note - Note: Operative Date: 02/08/19 Pre-Operative Diagnosis: Right foot 4th dight and met osteomyelitis; sepsis Operation: Right foot TransMet amputation. Findings: see dictation Post-Operative Diagnosis: Same as Pre-op Surgeon: [place] Anesthesia: Local, MAC Specimens Removed: Forefoot - path. 4th Met - Micro. 4th Met - path Estimated Blood Loss (mls): 5 Drains & Tubes with Location: Jayson drain - foot Operative Report Dictated: No
[2019-02-08] MEDS: NORTRIPTYLINE HCL 10 MG CAPSULE PO SCH (21:31)
[2019-02-08] MEDS: ATORVASTATIN CA 20 MG TABLET (FP) PO SCH (21:31)
[2019-02-09] MEDS ORDERED: PT OWN MED DRAWER 7, Y5N ONE ×4 (01:12→20:47)
[2019-02-09] MEDS: CEFEPIME 2 GM in DEXTROSE 5%-WATER 100 ML IVPB SCH ×3 (01:24→17:57)
[2019-02-09] MEDS: VANCOMYCIN HCL 1,500 MG in DEXTROSE 5%-WATER - 500 ML IVPB SCH ×2 (06:05→18:29)
[2019-02-09] MEDS: HEPARIN NA (PORCINE) 5,000 UNITS/ML 1ML VIAL SQ SCH ×3 (06:05→21:13)
[2019-02-09] MEDS: INSULIN SLIDING SCALE (NOVOLOG) 1 VIAL SQ SCH ×4 (06:10→21:16)
[2019-02-09] MEDS ORDERED: INSULIN (NOVOLOG MIX 70/30) 100 UNITS/ML MDV SQ ONE ×2 (06:28→07:01)
[2019-02-09] MEDS: INSULIN (NOVOLOG MIX 70/30) 100 UNITS/ML MDV SQ SCH ×2 (06:29→17:57)
[2019-02-09] MEDS ORDERED: INSULIN (NOVOLOG) ASPART 100 UNITS/ML 10ML VIAL ONE ×3 (07:01→21:07)
--- NOTE | 2019-02-09 07:46 | PN ---
Progress Note (short form) - Note Progress Note: Podiatry F/U: Seen/evaluated at bedside NAD. Pain well controlled, denies nausea/chills/SOB/ CP. Had temp last night to 100 F. Currently afebrile. S/p right transmetatarsal amputation POD#1. LILLIANA: R foot: Dressing is clean, dry, intact. No active bleeding, no bandage strikethrough. BERNADETTE drain is in place. The foot is warm, well perfused. Sutures are well coapted, no dehiscence noted. There is no purulent drainage, no fluctuance, no streaking cellulitis, minimal edema, no soft tissue crepitus, no signs of acute infection. Minimal tenderness to palpation. No ischemic changes exhibited to the foot. Blood Cx: pending org Imp: 63 year old diabetic male s/p right transmetatarsal amputation POD#1 for osteomyelitis and cellulitis 1. IV abx per infectious disease 2. BERNADETTE drain removed, DSD applied to right foot 3. Non-WB R foot 4. F/u cultures 5. Will follow Abran Souza DPM
[2019-02-09 08:17] LABS: BASO % 0.3 % (0-2.0); EOS % 0.3 % (0-4.5); HEMATOCRIT 27.1 % (35.4-49); HEMOGLOBIN 8.7 GM/dL (11.7-16.9); LYMPH % 6.4 % (8-40); MCH 26.3 pg (25.7-33.7); MCHC 32.1 g/dl (32.0-35.9); MEAN CELL VOLUME 81.8 fl (80-96); MEAN PLT VOLUME 7.5 fl (7.5-11.1); PLATELET COUNT 586 K/MM3 (134-434); RBC 3.31 M/mm3 (4.00-5.60); RDW 15.6 % (11.9-15.9); WHITE BLOOD COUNT 13.8 K/mm3 (4.0-10.0)
[2019-02-09 08:28] LABS: ALBUMIN 1.7 g/dl (3.4-5.0); BILIRUBIN,TOTAL 0.5 mg/dL (0.2-1); MAGNESIUM 1.7 mg/dL (1.8-2.4); POTASSIUM 4.3 mmol/L (3.5-5.1); TOT PROT 6.3 g/dl (6.4-8.2)
--- NOTE | 2019-02-09 08:35 | PN ---
Physical Exam: SUBJECTIVE: Patient seen and examined at bedside. He is POD#1 s/p right foot trans-metatarsal amputation. Febrile overnight to 100.8F. Currently denies acute complaints. He denies subjective fevers, chills, shortness of breath, chest pain, palpitations, abdominal pain, nausea, vomiting, diarrhea. OBJECTIVE: Vital Signs Period Temp Pulse Resp BP Sys/Cortez Pulse Ox Last 24 Hr 98.2 F-100.8 F 80-126 11-20 107-154/55-79 97-98 GENERAL: Awake, alert, and fully oriented, in no acute distress. HEAD: Normocephalic, atraumatic EYES: Pupils equal, round and reactive to light, extraocular movements intact, sclera anicteric, conjunctiva clear. EARS, NOSE, THROAT: Oropharynx clear without exudates. Moist mucous membranes. NECK: Normal range of motion, supple without lymphadenopathy. LUNGS: Breath sounds equal, clear to auscultation bilaterally. No wheezes, and no crackles. No accessory muscle use. HEART: Regular rate and rhythm, normal S1 and S2 without murmur, rub or gallop. ABDOMEN: Obese. Soft, nontender, not distended. Normoactive bowel sounds x4 quadrants, no guarding, no rebound tenderness. No hepatomegaly or splenomegaly appreciated. UPPER EXTREMITIES: 2+ radial pulses, bilaterally. Strength 5/5 in flexion, extension, abduction, adduction B/L LOWER EXTREMITIES: Right lower extremity bandaged s/p surgery. Bandaged clean, dry, nondraining. Wound Vac removed by podiatry earlier today. NEUROLOGICAL: Cranial nerves II-XII intact. Normal speech. No gross focal deficits. Sensation intact B/L upper and lower extremities. PSYCHIATRIC: Cooperative. Good eye contact. Appropriate mood and affect. Laboratory Results - last 24 hr 02/08/19 02/08/19 02/08/19 07:15 07:15 08:05 WBC 19.0 H RBC 3.49 L Hgb 9.2 L Hct 28.2 L MCV 80.9 MCH 26.4 MCHC 32.6 RDW 15.8 Plt Count 594 H MPV 7.1 L Absolute Neuts (auto) Neutrophils % Lymphocytes % Monocytes % Eosinophils % Basophils % Nucleated RBC % PT with INR 16.50 H INR 1.39 H PTT (Actin FS) 34.1 Sodium Potassium Chloride Carbon Dioxide Anion Gap BUN Creatinine Est GFR (CKD-EPI)AfAm Est GFR (CKD-EPI)NonAf POC Glucometer Random Glucose Calcium Magnesium Total Bilirubin AST ALT Alkaline Phosphatase Total Protein Albumin Blood Type AB POSITIVE 02/08/19 02/08/19 02/08/19 11:07 16:46 20:52 WBC RBC Hgb Hct MCV MCH MCHC RDW Plt Count MPV Absolute Neuts (auto) Neutrophils % Lymphocytes % Monocytes % Eosinophils % Basophils % Nucleated RBC % PT with INR INR PTT (Actin FS) Sodium Potassium Chloride Carbon Dioxide Anion Gap BUN Creatinine Est GFR (CKD-EPI)AfAm Est GFR (CKD-EPI)NonAf POC Glucometer 222 243 286 Random Glucose Calcium Magnesium Total Bilirubin AST ALT Alkaline Phosphatase Total Protein Albumin Blood Type 02/09/19 02/09/19 02/09/19 06:09 06:45 06:45 WBC 13.8 H RBC 3.31 L Hgb 8.7 L Hct 27.1 L MCV 81.8 MCH 26.3 MCHC 32.1 RDW 15.6 Plt Count 586 H MPV 7.5 Absolute Neuts (auto) 11.8 H Neutrophils % 86.0 H Lymphocytes % 6.4 L D Monocytes % 7.0 Eosinophils % 0.3 Basophils % 0.3 Nucleated RBC % 0 PT with INR INR PTT (Actin FS) Sodium 134 L Potassium 4.3 Chloride 98 Carbon Dioxide 28 Anion Gap 9 BUN 18.0 Creatinine 1.0 Est GFR (CKD-EPI)AfAm 93.08 Est GFR (CKD-EPI)NonAf 80.31 POC Glucometer 290 Random Glucose 254 H Calcium 9.0 Magnesium 1.7 L Total Bilirubin 0.5 AST 19 ALT 21 Alkaline Phosphatase 99 Total Protein 6.3 L Albumin 1.7 L Blood Type Active Medications Generic Name Dose Route Start Last Admin Trade Name Freq PRN Reason Stop Dose Admin Acetaminophen 650 mg 02/08/19 19:54 Tylenol - PO Q6H PRN Fever Or Pain Aspirin 81 mg 02/09/19 10:00 Ecotrin - PO DAILY [facility] Atorvastatin Calcium 20 mg 02/08/19 22:00 02/08/19 21:31 Lipitor - PO 20 mg HS [facility] Administration Azathioprine 75 mg 02/08/19 22:00 02/08/19 21:31 Imuran - PO 75 mg BID [facility] Administration Fentanyl 50 mcg 02/08/19 19:54 Sublimaze Injection - IVPUSH Q5M PRN PAIN-PACU ORDER X 4 DOSES ONLY Finasteride 5 mg 02/09/19 10:00 Proscar - PO DAILY [facility] Heparin Sodium (Porcine) 5,000 unit 02/08/19 22:00 02/09/19 06:05 Heparin - SQ 5,000 unit TID [facility] Administration Hydrochlorothiazide 25 mg 02/09/19 10:00 Hctz - PO DAILY [facility] Cefepime HCl 2 gm/ Dextrose 100 mls @ 200 mls/hr 02/09/19 02:00 02/09/19 01: 24 IVPB 200 mls/hr Q8H-IV [facility] Administration Lactated Ringer's 1,000 mls @ 125 mls/hr 02/08/19 19:54 02/08/19 20:15 Lactated Ringers Solution IV 0 mls ASDIR [facility] Administration Vancomycin HCl 1,500 mg/ 500 mls @ 250 mls/hr 02/09/19 04:00 02/09/19 06:05 Dextrose IVPB 250 mls/hr Q12H [facility] Administration Protocol Insulin Aspart 30 units 02/09/19 07:00 02/09/19 06:29 Novolog Mix 70/30 Vial SQ 30 units BIDAC [facility] Administration Insulin Aspart 1 vial 02/08/19 22:00 02/09/19 06:10 Novolog Vial Sliding Scale - SQ 8 units ACHS [facility] Administration Protocol Losartan Potassium 100 mg 02/09/19 10:00 Cozaar - PO DAILY [facility] Metoprolol Succinate 200 mg 02/09/19 10:00 Toprol Xl - PO DAILY [facility] Nifedipine 120 mg 02/09/19 10:00 Procardia Xl - PO DAILY [facility] Nortriptyline HCl 10 mg 02/08/19 22:00 02/08/19 21:31 Pamelor - PO 10 mg HS [facility] Administration Ondansetron HCl 4 mg 02/08/19 19:54 Zofran Injection IVPUSH Q6H PRN NAUSEA AND/OR VOMITING Tamsulosin HCl 0.4 mg 02/09/19 08:30 Flomax - PO DAILY@0830 [facility] ASSESSMENT/PLAN: Patient is a 62 year old male with history significant for diabetes mellitus s/ p amputation of right great toe, osteomyelitis, hypertension, myasthenia gravis , coronary artery disease s/p 1 stent, presents with complaint of right 4th toe pain, swelling with associated bleeding and purulent discharge. Sepsis secondary to right lower extremity Osteomyelitis -Xray of right foot highly suggestive of osteomyelitis -MRI right lower extremity reveals extensive cellulitis of the foot with OM of the 4th metatarsal and the 4th toe. Moderate edema extending up the foot - nonspecific in etiology and may be related to osteomyelitis or neuropathic joint. -Chest CT to negative for abscess in shoulder. -Follow MRI of the neck to rule out abscess/osteomyelitis of the spine -Vancomycin 1000mg IV Q12H -Cefepime 2grams IV Q8 hours -ID consult (Dr. Hooker) -Podiatry consult (Dr. Olea) -Vascular surgery consult (Dr. Ordaz) -Blood cultures growing MSSA. -Transthoracic cardiac ECHO negative for valvular vegetations -Follow wound cultures Myasthenia Gravis -Azathioprine 75mg PO BID HTN -Nifedipine 120mg PO QD -Metoprolol succinate 200mg PO QD -Losartan 100mg PO QD -Hydrochlorothiazide 25mg PO QD DM -Hold oral metformin -Insulin Novolin 70/30 30units subq BID -ISS ACHS -BGM ACHS -Nortryptiline 10mg PO daily for neuropathy CAD -Continue Aspirin 81 mg PO HLD -Atorvastatin 20mg PO HS BPH -Tamsulosin 0.4mg PO HS FEN -No IV fluids. Encourage judicious oral hydration -Follow CMP -Diabetic, sodim controlled controlled diet Prophylaxis -Heparin 5000units subq TID Disposition -Continue care in medical-surgical floor. Visit type - Emergency Visit Emergency Visit: Yes ED Registration Date: 02/07/19 Care time: The patient presented to the Emergency Department on the above date and was hospitalized for further evaluation of their emergent condition. - New Patient This patient is new to me today: No - Critical Care Critical Care patient: No - Discharge Referral Referred to [facility] No ATTENDING PHYSICIAN STATEMENT I saw and evaluated the patient. I reviewed the resident's note and discussed the case with the resident. I agree with the resident's findings and plan as documented. SUBJECTIVE: OBJECTIVE: ASSESSMENT AND PLAN:
--- NOTE | 2019-02-09 08:45 | PN ---
Progress Note (short form) - Note Progress Note: 63 M s/p MAC for transmet amputation. pt feels well. no comps. good result of anesthetic care.
[2019-02-09] MEDS ORDERED: MAGNESIUM OXIDE 400 MG TABLET (FP) PO ONE (09:00)
[2019-02-09] MEDS: NIFEdipine E.R 60 MG TABLET PO SCH (09:17)
[2019-02-09] MEDS: TAMSULOSIN HCL 0.4 MG CAP PO SCH (09:17)
[2019-02-09] MEDS: ASPIRIN COATED 81 MG TABLET.EC PO SCH (09:17)
[2019-02-09] MEDS: LOSARTAN POTASSIUM 50 MG TABLET (FP) PO SCH (09:18)
[2019-02-09] MEDS: FINASTERIDE 5 MG TABLET (FP) PO SCH (09:18)
[2019-02-09] MEDS: HYDROCHLOROTHIAZIDE 25 MG TABLET (FP) PO SCH (09:18)
[2019-02-09] MEDS: azaTHIOprine 50 MG TABLET PO SCH ×2 (09:19→21:15)
--- NOTE | 2019-02-09 13:43 | PN ---
Teaching Attending Note Name of Resident: Charles Trivedi ATTENDING PHYSICIAN STATEMENT I saw and evaluated the patient. I reviewed the resident's note and discussed the case with the resident. I agree with the resident's findings and plan as documented. SUBJECTIVE: Feels well post-op. Fever overnight. Pain well controlled. OBJECTIVE: Tmax 100.8, Hemodynamically Stable. Last Vital Signs Temp Pulse Resp BP Pulse Ox 98.6 F 100 H 20 112/77 95 02/09/19 09:00 02/09/19 09:00 02/09/19 09:00 02/09/19 09:00 02/09/19 09:00 Heart - S1 S2, RRR lungs - Clear to auscultation Abdomen - High BMI. Soft, non-tender. Bowel Sounds normal. Extremities - No calf tenderness, venous stasis, surgical site R foot dressed. Laboratory Results - last 24 hr 02/08/19 02/08/19 02/09/19 16:46 20:52 06:09 WBC RBC Hgb Hct MCV MCH MCHC RDW Plt Count MPV Absolute Neuts (auto) Neutrophils % Lymphocytes % Monocytes % Eosinophils % Basophils % Nucleated RBC % Sodium Potassium Chloride Carbon Dioxide Anion Gap BUN Creatinine Est GFR (CKD-EPI)AfAm Est GFR (CKD-EPI)NonAf POC Glucometer 243 286 290 Random Glucose Calcium Magnesium Total Bilirubin AST ALT Alkaline Phosphatase Total Protein Albumin 02/09/19 02/09/19 02/09/19 06:45 06:45 11:47 WBC 13.8 H RBC 3.31 L Hgb 8.7 L Hct 27.1 L MCV 81.8 MCH 26.3 MCHC 32.1 RDW 15.6 Plt Count 586 H MPV 7.5 Absolute Neuts (auto) 11.8 H Neutrophils % 86.0 H Lymphocytes % 6.4 L D Monocytes % 7.0 Eosinophils % 0.3 Basophils % 0.3 Nucleated RBC % 0 Sodium 134 L Potassium 4.3 Chloride 98 Carbon Dioxide 28 Anion Gap 9 BUN 18.0 Creatinine 1.0 Est GFR (CKD-EPI)AfAm 93.08 Est GFR (CKD-EPI)NonAf 80.31 POC Glucometer 346 Random Glucose 254 H Calcium 9.0 Magnesium 1.7 L Total Bilirubin 0.5 AST 19 ALT 21 Alkaline Phosphatase 99 Total Protein 6.3 L Albumin 1.7 L Current Medications Generic Name Dose Route Start Last Admin Trade Name Freq PRN Reason Stop Dose Admin Acetaminophen 650 mg 02/08/19 19:54 Tylenol - PO Q6H PRN Fever Or Pain Aspirin 81 mg 02/09/19 10:00 02/09/19 09:17 Ecotrin - PO 81 mg DAILY [facility] Administration Atorvastatin Calcium 20 mg 02/08/19 22:00 02/08/19 21:31 Lipitor - PO 20 mg HS [facility] Administration Azathioprine 75 mg 02/08/19 22:00 02/09/19 09:19 Imuran - PO 75 mg BID [facility] Administration Fentanyl 50 mcg 02/08/19 19:54 Sublimaze Injection - IVPUSH Q5M PRN PAIN-PACU ORDER X 4 DOSES ONLY Finasteride 5 mg 02/09/19 10:00 02/09/19 09:18 Proscar - PO 5 mg DAILY [facility] Administration Heparin Sodium (Porcine) 5,000 unit 02/08/19 22:00 02/09/19 06:05 Heparin - SQ 5,000 unit TID [facility] Administration Hydrochlorothiazide 25 mg 02/09/19 10:00 02/09/19 09:18 Hctz - PO 25 mg DAILY [facility] Administration Cefepime HCl 2 gm/ Dextrose 100 mls @ 200 mls/hr 02/09/19 02:00 02/09/19 10: 23 IVPB 200 mls/hr Q8H-IV [facility] Administration Vancomycin HCl 1,500 mg/ 500 mls @ 250 mls/hr 02/09/19 04:00 02/09/19 06:05 Dextrose IVPB 250 mls/hr Q12H [facility] Administration Protocol Insulin Aspart 30 units 02/09/19 07:00 02/09/19 06:29 Novolog Mix 70/30 Vial SQ 30 units BIDAC [facility] Administration Insulin Aspart 1 vial 02/08/19 22:00 02/09/19 11:48 Novolog Vial Sliding Scale - SQ 10 units ACHS [facility] Administration Protocol Losartan Potassium 100 mg 02/09/19 10:00 02/09/19 09:18 Cozaar - PO 100 mg DAILY [facility] Administration Metoprolol Succinate 200 mg 02/09/19 10:00 02/09/19 09:19 Toprol Xl - PO 200 mg DAILY [facility] Administration Nifedipine 120 mg 02/09/19 10:00 02/09/19 09:17 Procardia Xl - PO 120 mg DAILY [facility] Administration Nortriptyline HCl 10 mg 02/08/19 22:00 02/08/19 21:31 Pamelor - PO 10 mg HS [facility] Administration Ondansetron HCl 4 mg 02/08/19 19:54 Zofran Injection IVPUSH Q6H PRN NAUSEA AND/OR VOMITING Tamsulosin HCl 0.4 mg 02/09/19 08:30 02/09/19 09:17 Flomax - PO 0.4 mg DAILY@0830 [facility] Administration Home Medications Medication Instructions Recorded Atorvastatin Ca [Lipitor] 20 mg PO HS 10/24/17 Hydrochlorothiazide 25 mg PO DAILY 10/24/17 Losartan Potassium 100 mg PO DAILY 10/24/17 Metoprolol Succinate 200 mg PO DAILY 10/24/17 Nifedipine ER [Procardia XL -] 120 mg PO DAILY 10/24/17 Nortriptyline HCl [Pamelor -] 10 mg PO HS 10/24/17 Novolin 70-30 100 Unit/ml Vial 68 units SQ AM 10/24/17 Tamsulosin HCl 0.4 mg PO HS 10/24/17 Aspirin [ASA -] 81 mg PO DAILY 02/07/19 Finasteride 5 mg PO DAILY 02/07/19 Metformin HCl [Glucophage] 1,000 mg PO BID 02/08/19 ASSESSMENT AND PLAN: 62 year old male with history of DM 2, PVD s/p R great toe amputation, Osteomyelitis, Hypertension, Myasthenia Gravis, CAD s/p PCI/1 stent, presents with complaint of right 4th toe pain, swelling with associated bleeding and purulent discharge for several months, as well as nasal congestion/cough. 1. Sepsis secondary to R 4th toe Osteomyelitis with overlying cellulitis and Bacteremia. POD 1 s/p transmetatarsal amputation. Leukocytosis improving. Blood Cx positive for likely MSSA x 4 bottles MRI confirmed osteomyelitis 4th toe with celllulitis of R foot. TTE - no evidence of vegetations or valvular dysfunction. Continue Cefepime/Vancomycin. PCN allergic. ID and Podiatry following. ID for further tailoring of Abx therapy pending final Cx ID and Sens. 2. MG - continue Azathioprine 3. HTN - continue Nifedipine, Metoprolol, Losartan. HCTZ resumed post- operatively. 4. DM 2 - Maintain on Novolog sliding scale. Oral metformin held. 5. CAD s/p PCI/Stent - continue Aspirin/BB/ACEI/Statin. 6. HLD - continue Atorvastatin 7. BPH - continue Tamsulosin, Finasteride. 8. Hypomagnesemia - recurrent, will replete. 9. Normocytic Anemia - new since last labs in 2018. no evidence of acute blood loss. Will send Anemia work-up. DVT Px - Heparin SQ.
[2019-02-09] MEDS ORDERED: MAGNESIUM SULF 50% (8.12 MEQ/2 ML-1 GM VIAL) IVPB ONE (13:46)
[2019-02-09 15:56] VITALS: BMI 34.5
[2019-02-09] MEDS: ATORVASTATIN CA 20 MG TABLET (FP) PO SCH (21:14)
[2019-02-09] MEDS ORDERED: traMADol HCL 50 MG TABLET PO ONE (22:02)
[2019-02-09] MEDS: NORTRIPTYLINE HCL 10 MG CAPSULE PO SCH (23:02)
--- NOTE | 2019-02-09 23:53 | PN ---
Progress Note, Physician History of Present Illness: AWAKE, ALERT C/O L SHOULDER PAIN POST OP TMA NO C/O FOOT PAIN NO FEVER/ CHILLS REPEAT BC PENDING - Current Medication List Current Medications: Active Medications Acetaminophen (Tylenol -) 650 mg PO Q6H PRN PRN Reason: Fever Or Pain Aspirin (Ecotrin -) 81 mg PO DAILY [facility] Last Admin: 02/09/19 09:17 Dose: 81 mg Atorvastatin Calcium (Lipitor -) 20 mg PO HS [facility] Last Admin: 02/09/19 21:14 Dose: 20 mg Azathioprine (Imuran -) 75 mg PO BID [facility] Last Admin: 02/09/19 21:15 Dose: Not Given Finasteride (Proscar -) 5 mg PO DAILY [facility] Last Admin: 02/09/19 09:18 Dose: 5 mg Heparin Sodium (Porcine) (Heparin -) 5,000 unit SQ TID [facility] Last Admin: 02/09/19 21:13 Dose: 5,000 unit Hydrochlorothiazide (Hctz -) 25 mg PO DAILY [facility] Last Admin: 02/09/19 09:18 Dose: 25 mg Cefepime HCl 2 gm/ Dextrose 100 mls @ 200 mls/hr IVPB Q8H-IV [facility] Last Admin: 02/09/19 17:57 Dose: 200 mls/hr Vancomycin HCl 1,500 mg/ (Dextrose) 500 mls @ 250 mls/hr IVPB Q12H [facility]; Protocol Last Admin: 02/09/19 18:29 Dose: 250 mls/hr Insulin Aspart (Novolog Mix 70/30 Vial) 30 units SQ BIDAC [facility] Last Admin: 02/09/19 17:57 Dose: 30 units Insulin Aspart (Novolog Vial Sliding Scale -) 1 vial SQ ACHS [facility]; Protocol Last Admin: 02/09/19 21:16 Dose: 10 units Losartan Potassium (Cozaar -) 100 mg PO DAILY [facility] Last Admin: 02/09/19 09:18 Dose: 100 mg Metoprolol Succinate (Toprol Xl -) 200 mg PO DAILY [facility] Last Admin: 02/09/19 09:19 Dose: 200 mg Nifedipine (Procardia Xl -) 120 mg PO DAILY [facility] Last Admin: 02/09/19 09:17 Dose: 120 mg Nortriptyline HCl (Pamelor -) 10 mg PO HS [facility] Last Admin: 02/09/19 23:02 Dose: 10 mg Tamsulosin HCl (Flomax -) 0.4 mg PO DAILY@0830 [facility] Last Admin: 02/09/19 09:17 Dose: 0.4 mg - Objective Vital Signs: Vital Signs Temperature 99.1 F 02/09/19 16:47 Pulse Rate 93 H 02/09/19 16:47 Respiratory Rate 20 02/09/19 16:47 Blood Pressure 139/66 02/09/19 16:47 O2 Sat by Pulse Oximetry (%) 95 02/09/19 21:00 Constitutional: Yes: No Distress Cardiovascular: Yes: Regular Rate and Rhythm, S1, S2 Respiratory: Yes: CTA Bilaterally Gastrointestinal: Yes: Normal Bowel Sounds, Soft Musculoskeletal: Yes: Other (NO ERYTHEMA/WARMTH/TENDERNESS L SHOULDER) Labs: CBC, BMP 02/09/19 06:45 02/09/19 06:45 INR, PTT INR 1.39 (0.83-1.09) H 02/08/19 07:15 Assessment/Plan MSSA BACTEREMIA ? SEPTIC SHOULDER PCN ALLERGY CHECK REPEAT BC C SPINE MRI READING PENDING CONTINUE VANCOMYCIN /CEFEPIME
[2019-02-10] MEDS: CEFEPIME 2 GM in DEXTROSE 5%-WATER 100 ML IVPB SCH ×3 (01:41→17:22)
[2019-02-10] MEDS: VANCOMYCIN HCL 1,500 MG in DEXTROSE 5%-WATER - 500 ML IVPB SCH ×2 (03:46→17:22)
--- NOTE | 2019-02-10 04:20 | FALL ---
Fall Exam - Event Witnessed fall: No Location of Fall: Patient Room Fall from: While ambulating (Patient stated that he was walking from his bathroom to his bed when he slipped and fell after losing his balance. Denies syncope. Endorses mechanical fall. Denies head hit. Unwitnessed fall.) - Pre-Fall Mental Status: Alert, Oriented, Cooperative Current Medications: Current Medications Generic Name Dose Route Start Last Admin Trade Name Freq PRN Reason Stop Dose Admin Acetaminophen 650 mg 02/08/19 19:54 Tylenol - PO Q6H PRN Fever Or Pain Aspirin 81 mg 02/09/19 10:00 02/09/19 09:17 Ecotrin - PO 81 mg DAILY [facility] Administration Atorvastatin Calcium 20 mg 02/08/19 22:00 02/09/19 21:14 Lipitor - PO 20 mg HS [facility] Administration Azathioprine 75 mg 02/08/19 22:00 02/09/19 21:15 Imuran - PO Not Given BID [facility] Finasteride 5 mg 02/09/19 10:00 02/09/19 09:18 Proscar - PO 5 mg DAILY [facility] Administration Heparin Sodium (Porcine) 5,000 unit 02/08/19 22:00 02/09/19 21:13 Heparin - SQ 5,000 unit TID [facility] Administration Hydrochlorothiazide 25 mg 02/09/19 10:00 02/09/19 09:18 Hctz - PO 25 mg DAILY [facility] Administration Cefepime HCl 2 gm/ Dextrose 100 mls @ 200 mls/hr 02/09/19 02:00 02/10/19 01: 41 IVPB 200 mls/hr Q8H-IV [facility] Administration Vancomycin HCl 1,500 mg/ 500 mls @ 250 mls/hr 02/09/19 04:00 02/10/19 03:46 Dextrose IVPB 250 mls/hr Q12H [facility] Administration Protocol Insulin Aspart 30 units 02/09/19 07:00 02/09/19 17:57 Novolog Mix 70/30 Vial SQ 30 units BIDAC [facility] Administration Insulin Aspart 1 vial 02/08/19 22:00 02/09/19 21:16 Novolog Vial Sliding Scale - SQ 10 units ACHS [facility] Administration Protocol Losartan Potassium 100 mg 02/09/19 10:00 02/09/19 09:18 Cozaar - PO 100 mg DAILY [facility] Administration Metoprolol Succinate 200 mg 02/09/19 10:00 02/09/19 09:19 Toprol Xl - PO 200 mg DAILY [facility] Administration Nifedipine 120 mg 02/09/19 10:00 02/09/19 09:17 Procardia Xl - PO 120 mg DAILY [facility] Administration Nortriptyline HCl 10 mg 02/08/19 22:00 02/09/19 23:02 Pamelor - PO 10 mg HS [facility] Administration Tamsulosin HCl 0.4 mg 02/09/19 08:30 02/09/19 09:17 Flomax - PO 0.4 mg DAILY@0830 [facility] Administration - Post-Fall Patient Outcome: Pain Only Exam Findings: alert and oriented x3. RRR no murmurs. CTAB. Abd soft non- tender. Neuro: CN-XII intact. 5/5 muscle strength upper and lower extremities bilateraly. Sensation intact throughout to gross touch. Extremities: L shoulder pain Treatment: Analgesia Vital Signs: BP 144/70 HR 90 O2 95 on RA LOC Post-Fall: Unchanged, Awake, Alert, Oriented Identify factors for HIGH RISK for Head Injury: Pt on anticoagulant (subq heparin for DVT prophylaxis)
[2019-02-10] MEDS: INSULIN (NOVOLOG MIX 70/30) 100 UNITS/ML MDV SQ SCH ×2 (06:14→17:27)
[2019-02-10] MEDS: INSULIN SLIDING SCALE (NOVOLOG) 1 VIAL SQ SCH ×4 (06:15→21:14)
[2019-02-10] MEDS: HEPARIN NA (PORCINE) 5,000 UNITS/ML 1ML VIAL SQ SCH ×3 (06:16→21:11)
[2019-02-10 09:21] LABS: HEMATOCRIT 26.7 % (35.4-49); HEMOGLOBIN 8.7 GM/dL (11.7-16.9); MCH 26.3 pg (25.7-33.7); MCHC 32.7 g/dl (32.0-35.9); MEAN CELL VOLUME 80.5 fl (80-96); PLATELET COUNT 647 K/MM3 (134-434); RBC 3.31 M/mm3 (4.00-5.60); RDW 15.9 % (11.9-15.9); WHITE BLOOD COUNT 14.3 K/mm3 (4.0-10.0)
[2019-02-10 09:26] LABS: ALBUMIN 1.8 g/dl (3.4-5.0); BILIRUBIN,TOTAL 0.5 mg/dL (0.2-1); BLOOD UREA NITROGEN 18.1 mg/dL (7-18); CALCIUM 9.9 mg/dL (8.5-10.1); CREATININE 1.1 mg/dL (0.55-1.3); POTASSIUM 3.9 mmol/L (3.5-5.1); TOT PROT 7.2 g/dl (6.4-8.2)
[2019-02-10 09:36] LABS: INR 1.25 (0.83-1.09); PROTHROMBIN TIME (PATIENT) 14.8 SEC (9.7-13.0)
[2019-02-10] MEDS ORDERED: PT OWN MED DRAWER 7, Y5N ONE ×2 (09:39→17:19)
[2019-02-10] MEDS: TAMSULOSIN HCL 0.4 MG CAP PO SCH (10:08)
[2019-02-10] MEDS: LOSARTAN POTASSIUM 50 MG TABLET (FP) PO SCH (10:08)
[2019-02-10] MEDS: ASPIRIN COATED 81 MG TABLET.EC PO SCH (10:09)
[2019-02-10] MEDS: HYDROCHLOROTHIAZIDE 25 MG TABLET (FP) PO SCH (10:09)
[2019-02-10] MEDS: NIFEdipine E.R 60 MG TABLET PO SCH (10:09)
[2019-02-10] MEDS: azaTHIOprine 50 MG TABLET PO SCH ×2 (10:09→21:13)
[2019-02-10] MEDS: FINASTERIDE 5 MG TABLET (FP) PO SCH (10:11)
--- NOTE | 2019-02-10 12:34 | CONSULT ---
Consult - text type - Consultation Consultation Note: ORTHOPEDIC SURGERY CONSULTATION NOTE Department of Orthopedic Surgery HISTORY OF PRESENT ILLNESS Martín Andrade is a 63 year old male who was admitted to [facility] on 02/07/2018 with osteomyelitis of the right foot. He underwent a transmetarsal amputaion on 2018. He has a past medical history significant for diabetes mellitus, osteomyelitis, hypertension, myasthenia gravis, coronary artery disease s/p 1 stent. The orthopedic service was consulted for left shoulder pain. The pain began about 2-3 weeks ago after the patient underwent a laser procedure for his eyes. He states he woke up the following morning and began having left shoulder pain./ The pain improves with rest and is worse with reaching and overhead activites. He has used ice and hear for pain with mild relief of symptoms. He states that yesterday he fell onto his left shoulder while trying to walk to the bathroom. Denies any other injuries. Denies numbness, tingling or other constitutional complaints. Denies current tobacco use, drug use, alcohol abuse. The patient uses no assistive devices at baseline. Active Problems Problem Status Category Onset Cellulitis Acute Medical Osteomyelitis Acute Medical Septic arthritis of left sternoclavicular joint Acute Medical Staphylococcal sepsis Acute Medical Social History Smoking history Former smoker Hx Alcohol Use Yes: socially Allergies Allergy/AdvReac Type Severity Reaction Status Date / Time Penicillins Allergy Verified 02/07/19 11:35 Active Medications Generic Name Dose Route Start Last Admin Trade Name Freq PRN Reason Stop Dose Admin Acetaminophen 650 mg 02/08/19 19:54 Tylenol - PO Q6H PRN Fever Or Pain Aspirin 81 mg 02/09/19 10:00 02/10/19 10:09 Ecotrin - PO 81 mg DAILY JUSTINE Administration Atorvastatin Calcium 20 mg 02/08/19 22:00 02/09/19 21:14 Lipitor - PO 20 mg HS JUSTINE Administration Azathioprine 75 mg 02/08/19 22:00 02/10/19 10:09 Imuran - PO 75 mg BID JUSTINE Administration Finasteride 5 mg 02/09/19 10:00 02/10/19 10:11 Proscar - PO 5 mg DAILY JUSTINE Administration Heparin Sodium (Porcine) 5,000 unit 02/08/19 22:00 02/10/19 06:16 Heparin - SQ 5,000 unit TID JUSTINE Administration Hydrochlorothiazide 25 mg 02/09/19 10:00 02/10/19 10:09 Hctz - PO 25 mg DAILY JUSTINE Administration Cefepime HCl 2 gm/ Dextrose 100 mls @ 200 mls/hr 02/09/19 02:00 02/10/19 10: 10 IVPB 200 mls/hr Q8H-IV JUSTINE Administration Vancomycin HCl 1,500 mg/ 500 mls @ 250 mls/hr 02/09/19 04:00 02/10/19 03:46 Dextrose IVPB 250 mls/hr Q12H JUSTINE Administration Protocol Insulin Aspart 30 units 02/09/19 07:00 02/10/19 06:14 Novolog Mix 70/30 Vial SQ 30 units BIDAC JUSTINE Administration Insulin Aspart 1 vial 02/08/19 22:00 02/10/19 06:15 Novolog Vial Sliding Scale - SQ 6 units ACHS JUSTINE Administration Protocol Losartan Potassium 100 mg 02/09/19 10:00 02/10/19 10:08 Cozaar - PO 100 mg DAILY JUSTINE Administration Metoprolol Succinate 200 mg 02/09/19 10:00 02/10/19 10:09 Toprol Xl - PO 200 mg DAILY JUSTINE Administration Nifedipine 120 mg 02/09/19 10:00 02/10/19 10:09 Procardia Xl - PO 120 mg DAILY JUSTINE Administration Nortriptyline HCl 10 mg 02/08/19 22:00 02/09/19 23:02 Pamelor - PO 10 mg HS JUSTINE Administration Tamsulosin HCl 0.4 mg 02/09/19 08:30 02/10/19 10:08 Flomax - PO 0.4 mg DAILY@0830 JUSTINE Administration Vital Signs (last) Temp Pulse Resp BP Pulse Ox 97.9 F 88 20 108/55 L 95 02/10/19 07:03 02/10/19 07:03 02/10/19 07:03 02/10/19 07:03 02/09/19 21:00 Intake and Output 02/08/19 02/09/19 02/10/19 23:59 23:59 23:59 Intake Total 2110 2525 700 Output Total 320 3070 Balance 1790 -545 700 Intake: IV 650 875 Lactated Ringers Solution 250 875 1,000 ml @ 125 mls/hr IV ASDIR JUSTINE Rx#: [id number] IVPB 700 1050 700 Oral 760 600 Output: Drainage 20 Right Foot 20 Urine 300 3050 Void 300 3050 Estimated Blood Loss 20 Other: Voiding Method Urinal Urinal # Unmeasured Voids Void 2 2 Bowel Movement Yes No Weight 241 lb 1.6 oz 241 lb Height 5 ft 10 in 5 ft 10 in Body Mass Index (BMI) 34.6 34.5 Weight Measurement Method Built in [facility] 02/10/19 08:24 02/10/19 08:24 PT with INR 14.80 SEC (9.7-13.0) H 02/10/19 08:24 PTT (Actin FS) 32.0 SECONDS (25.2-36.5) 02/10/19 08:24 FAMILY HISTORY Reviewed and noncontributory REVIEW OF SYMPTOMS A twelve-point review of systems was performed and was negative except as noted in HPI. PHYSICAL EXAM Constitutional: Alert and oriented to person, place, and time. Appears well- developed and well-nourished. No acute distress, appropriate mood and affect. Left Upper Extremity: Normal cervical spine range of motion. No cervical tenderness. Examination of the left shoulder shows no overlying skin changes. There is no scarring. No evidence of atrophy. There is no scapular winging. No evidence of upper extremity peripheral edema. There is no bicipital groove tenderness. There is no tenderness over the greater tuberosity. There is no tenderness over the AC joint. Range of motion of the shoulder shows forward elevation of 125/170, abduction 100, external rotation at side 60, SABER 90 , SABIR 20, and internal rotation to the sacral spine. There is pain at end range of motion. This was compared to the contralateral shoulder which shows forward elevation of 170, abduction 100, external rotation at side 60, SABER 90, SABIR 40, and internal rotation to the mid thoracic spine. There is a positive Speeds test and positive [place]'s test. There are positive Neer and Lyons signs. Negative external rotation lag sign. Negative belly press and lift-off lag signs. Sensation is intact to light touch over the axillary, musculocutaneous, median, radial, and ulnar nerve distributions bilaterally. Capillary refill is less than two seconds. Radial pulses 2+ equal bilaterally. Strength testing shows 5/5 abduction, 5/5 external rotation, 5/5 internal rotation, 5/5 biceps, 5/5 triceps. 5/5 wrist extension, 5/5 intrinsics. Right Upper Extremity: No tenderness to palpation. Full passive and active ROM, free from pain. Right Lower Extremity: Bandage right foot. Full passive and active ROM hip and knee, free from pain. No cords or calf tenderness. No significant calf/ankle edema. Left Lower Extremity: No tenderness to palpation. Full passive and active ROM, free from pain. No cords or calf tenderness. No significant calf/ankle edema. IMAGING There is no imaging of the left shoulder available for review. ASSESSMENT AND PLAN Martín Andrade is a 63 year old male with left shoulder pain. I discussed with the patient that his symptoms and signs are most consistent with rotator cuff tendonitis, bursitis, and posterior capsular stiffness. There is a very low suspicion for a septic joint at this time based on his signs and symptoms. We reviewed the natural history of this condition and treatment options ranging from conservative measures (activity modification, physical therapy, icing, pain medications, cortisone injection) to surgical options. We agreed on the following plan for him: - No surgical intervention at this time - I have ordered radiographs of the left shoulder. - Pain control with NSAIDs if no contraindications - Physical Therapy: the patient should start a physical therapy program to work on deltoid and rotator cuff strengthening, shoulder range of motion, and a rotator cuff and scapular stabilization program. Posterior capsular, internal rotation stretching should be emphasized. We discussed which activities they should avoid. They should avoid abduction type, long arm strengthening exercises. They should also avoid lateral raises or humeral abduction with internal rotation, upright rows, behind the neck pull-downs, and presses. - Ice left shoulder - DVT prophylaxis - Monitor H/H - Appreciate medical management - Decubitus precautions heel/sacrum All questions were answered. Thank you for involving our team in the care of this patient. We will follow the patient with you. Please call us at with questions.
--- NOTE | 2019-02-10 16:59 | EKG ---
Test Reason : Blood Pressure : / mmHG Vent. Rate : 085 BPM Atrial Rate : 085 BPM P-R Int : 168 ms QRS Dur : 106 ms QT Int : 358 ms P-R-T Axes : 040 -29 040 degrees QTc Int : 426 ms NORMAL SINUS RHYTHM INCOMPLETE LEFT BUNDLE BRANCH BLOCK BORDERLINE ECG WHEN COMPARED WITH ECG OF 08-FEB-2019 13:50, NO SIGNIFICANT CHANGE WAS FOUND Confirmed by DIGNA VALLES MD ([id number]) on 02/10/2019 4:58:47 PM Referred By: Confirmed By:DIGNA VALLES MD
[2019-02-10] MEDS ORDERED: INSULIN (NOVOLOG) ASPART 100 UNITS/ML 10ML VIAL ONE (17:44)
--- NOTE | 2019-02-10 21:09 | PN ---
Progress Note (short form) - Note Progress Note: SUBJECTIVE: Feels well. Pain well controlled. Shoulder discomfort improving. No further fever. OBJECTIVE: Fever resolved, hemodynamcally Stable. Last Vital Signs Temp Pulse Resp BP Pulse Ox 98 F 92 H 18 130/70 98 02/10/19 18:13 02/10/19 18:13 02/10/19 18:13 02/10/19 18:13 02/10/19 09:00 Heart - S1 S2, RRR lungs - Clear to auscultation Abdomen - High BMI. Soft, non-tender. Bowel Sounds normal. Extremities - No calf tenderness, venous stasis, surgical site R foot dressed. MS: NO shoulder swelling/erythema/tenderness. Full ROM, slightly painful on extreme flexion/abduction. Neurovascularly intact. Neuro - AAO x 3. tone/Power normal all extremities. Laboratory Results - last 24 hr 02/09/19 02/10/19 02/10/19 21:11 06:13 08:24 WBC 14.3 H RBC 3.31 L Hgb 8.7 L Hct 26.7 L MCV 80.5 MCH 26.3 MCHC 32.7 RDW 15.9 Plt Count 647 H MPV 7.0 L PT with INR INR PTT (Actin FS) Sodium Potassium Chloride Carbon Dioxide Anion Gap BUN Creatinine Est GFR (CKD-EPI)AfAm Est GFR (CKD-EPI)NonAf POC Glucometer 314 202 Random Glucose Calcium Total Bilirubin AST ALT Alkaline Phosphatase Total Protein Albumin 02/10/19 02/10/19 02/10/19 08:24 08:24 12:35 WBC RBC Hgb Hct MCV MCH MCHC RDW Plt Count MPV PT with INR 14.80 H INR 1.25 H PTT (Actin FS) 32.0 Sodium 136 Potassium 3.9 Chloride 99 Carbon Dioxide 29 Anion Gap 8 BUN 18.1 H Creatinine 1.1 Est GFR (CKD-EPI)AfAm 82.95 Est GFR (CKD-EPI)NonAf 71.57 POC Glucometer 185 Random Glucose 141 H Calcium 9.9 Total Bilirubin 0.5 AST 25 ALT 25 Alkaline Phosphatase 112 Total Protein 7.2 Albumin 1.8 L 02/10/19 17:27 WBC RBC Hgb Hct MCV MCH MCHC RDW Plt Count MPV PT with INR INR PTT (Actin FS) Sodium Potassium Chloride Carbon Dioxide Anion Gap BUN Creatinine Est GFR (CKD-EPI)AfAm Est GFR (CKD-EPI)NonAf POC Glucometer 252 Random Glucose Calcium Total Bilirubin AST ALT Alkaline Phosphatase Total Protein Albumin Current Medications Generic Name Dose Route Start Last Admin Trade Name Freq PRN Reason Stop Dose Admin Acetaminophen 650 mg 02/08/19 19:54 Tylenol - PO Q6H PRN Fever Or Pain Aspirin 81 mg 02/09/19 10:00 02/10/19 10:09 Ecotrin - PO 81 mg DAILY JUSTINE Administration Atorvastatin Calcium 20 mg 02/08/19 22:00 02/09/19 21:14 Lipitor - PO 20 mg HS JUSTINE Administration Azathioprine 75 mg 02/08/19 22:00 02/10/19 10:09 Imuran - PO 75 mg BID JUSTINE Administration Finasteride 5 mg 02/09/19 10:00 02/10/19 10:11 Proscar - PO 5 mg DAILY JUSTINE Administration Heparin Sodium (Porcine) 5,000 unit 02/08/19 22:00 02/10/19 17:27 Heparin - SQ 5,000 unit TID JUSTINE Administration Hydrochlorothiazide 25 mg 02/09/19 10:00 02/10/19 10:09 Hctz - PO 25 mg DAILY JUSTINE Administration Cefepime HCl 2 gm/ Dextrose 100 mls @ 200 mls/hr 02/09/19 02:00 02/10/19 17: 22 IVPB 200 mls/hr Q8H-IV JUSTINE Administration Vancomycin HCl 1,500 mg/ 500 mls @ 250 mls/hr 02/09/19 04:00 02/10/19 17:22 Dextrose IVPB 250 mls/hr Q12H JUSTINE Administration Protocol Insulin Aspart 30 units 02/09/19 07:00 02/10/19 17:27 Novolog Mix 70/30 Vial SQ 30 units BIDAC JUSTINE Administration Insulin Aspart 1 vial 02/08/19 22:00 02/10/19 17:28 Novolog Vial Sliding Scale - SQ 8 units ACHS JUSTINE Administration Protocol Losartan Potassium 100 mg 02/09/19 10:00 02/10/19 10:08 Cozaar - PO 100 mg DAILY JUSTINE Administration Metoprolol Succinate 200 mg 02/09/19 10:00 02/10/19 10:09 Toprol Xl - PO 200 mg DAILY JUSTINE Administration Nifedipine 120 mg 02/09/19 10:00 02/10/19 10:09 Procardia Xl - PO 120 mg DAILY JUSTINE Administration Nortriptyline HCl 10 mg 02/08/19 22:00 02/09/19 23:02 Pamelor - PO 10 mg HS JUSTINE Administration Tamsulosin HCl 0.4 mg 02/09/19 08:30 02/10/19 10:08 Flomax - PO 0.4 mg DAILY@0830 UJSTINE Administration Home Medications Medication Instructions Recorded Atorvastatin Ca [Lipitor] 20 mg PO HS 10/24/17 Hydrochlorothiazide 25 mg PO DAILY 10/24/17 Losartan Potassium 100 mg PO DAILY 10/24/17 Metoprolol Succinate 200 mg PO DAILY 10/24/17 Nifedipine ER [Procardia XL -] 120 mg PO DAILY 10/24/17 Nortriptyline HCl [Pamelor -] 10 mg PO HS 10/24/17 Novolin 70-30 100 Unit/ml Vial 68 units SQ AM 10/24/17 Tamsulosin HCl 0.4 mg PO HS 10/24/17 Aspirin [ASA -] 81 mg PO DAILY 02/07/19 Finasteride 5 mg PO DAILY 02/07/19 Metformin HCl [Glucophage] 1,000 mg PO BID 02/08/19 ASSESSMENT AND PLAN: 62 year old male with history of DM 2, PVD s/p R great toe amputation, Osteomyelitis, Hypertension, Myasthenia Gravis, CAD s/p PCI/1 stent, presents with complaint of right 4th toe pain, swelling with associated bleeding and purulent discharge for several months, as well as nasal congestion/cough. 1. Sepsis secondary to R 4th toe Osteomyelitis with overlying cellulitis and Bacteremia. POD 2 s/p transmetatarsal amputation. Leukocytosis plateaued Blood Cx positive for likely MSSA x 4 bottles. repeat Blood cx pending MRI confirmed osteomyelitis 4th toe with celllulitis of R foot. TTE - no evidence of vegetations or valvular dysfunction. Continue Cefepime/Vancomycin. PCN allergic. ID and Podiatry following. ID for further tailoring of Abx therapy pending final Cx ID and Sens. 2. MG - continue Azathioprine 3. HTN - continue Nifedipine, Metoprolol, Losartan. HCTZ resumed post- operatively. 4. DM 2 - Maintain on Novolog sliding scale. Oral metformin held. 5. CAD s/p PCI/Stent - continue Aspirin/BB/ACEI/Statin. 6. HLD - continue Atorvastatin 7. BPH - continue Tamsulosin, Finasteride. 8. Hypomagnesemia - recurrent, repleted. 9. Normocytic Anemia - new since last labs in 2018. No evidence of acute blood loss. Anemia work-up as out-patient. DVT Px - Heparin SQ. Visit type - Emergency Visit Emergency Visit: Yes ED Registration Date: 02/07/19 Care time: The patient presented to the Emergency Department on the above date and was hospitalized for further evaluation of their emergent condition. - New Patient This patient is new to me today: No - Critical Care Critical Care patient: No - Discharge Referral Referred to [facility] No
[2019-02-10] MEDS: ATORVASTATIN CA 20 MG TABLET (FP) PO SCH (21:12)
[2019-02-10] MEDS: NORTRIPTYLINE HCL 10 MG CAPSULE PO SCH (21:12)
[2019-02-10] MEDS: ACETAMINOPHEN 325 MG TABLET (FP) PO PRN (21:20)
[2019-02-11] MEDS: CEFEPIME 2 GM in DEXTROSE 5%-WATER 100 ML IVPB SCH ×2 (01:28→09:18)
[2019-02-11] MEDS: VANCOMYCIN HCL 1,500 MG in DEXTROSE 5%-WATER - 500 ML IVPB SCH (03:22)
[2019-02-11] MEDS: HEPARIN NA (PORCINE) 5,000 UNITS/ML 1ML VIAL SQ SCH ×2 (05:53→13:09)
[2019-02-11] MEDS: INSULIN SLIDING SCALE (NOVOLOG) 1 VIAL SQ SCH ×3 (06:02→17:26)
[2019-02-11] MEDS: INSULIN (NOVOLOG MIX 70/30) 100 UNITS/ML MDV SQ SCH ×2 (06:02→17:25)
--- NOTE | 2019-02-11 07:45 | PN ---
Progress Note (short form) - Note Progress Note: Patient is a 62 year old male with history significant for diabetes mellitus s/ p amputation of right great toe, osteomyelitis, hypertension, myasthenia gravis , coronary artery disease s/p 1 stent, presents with complaint of right 4th toe pain, swelling with associated bleeding and purulent discharge. Is now 3 days s/ p right TMA. Doing well. did take a fall yesterday. Been trying to stay as NWB as possible on the foot. States no pain. States wants to try to go to rehab facility. O: Surgical site intact with suture, no erythema, gross edema stil noted, no drainage, no signs of acute infection remain, no dehiscence noted at this time A: 3 day s/p right TMA P: Evaluated and reviewed Given intra op findings jefe require intermediate IV Abx. 4th metatarsal was completely destroyed from osteo changes as well as tissue liquefaction throughout patient aware Recc Iv abx Per ID. Cultures were taken intra op Cont. minimal WB to the [facility] tfoot Will follow
[2019-02-11 08:06] LABS: BASO % 0.5 % (0-2.0); EOS % 0.7 % (0-4.5); HEMATOCRIT 26.2 % (35.4-49); HEMOGLOBIN 8.6 GM/dL (11.7-16.9); LYMPH % 9.1 % (8-40); MCH 26.4 pg (25.7-33.7); MCHC 32.7 g/dl (32.0-35.9); MEAN CELL VOLUME 80.8 fl (80-96); MONO % 6.1 % (3.8-10.2); NEUT % 83.6 % (42.8-82.8); PLATELET COUNT 595 K/MM3 (134-434); RBC 3.25 M/mm3 (4.00-5.60); RDW 15.7 % (11.9-15.9); WHITE BLOOD COUNT 12.9 K/mm3 (4.0-10.0)
[2019-02-11 08:22] LABS: BLOOD UREA NITROGEN 19.4 mg/dL (7-18); CALCIUM 9.9 mg/dL (8.5-10.1); CREATININE 1.1 mg/dL (0.55-1.3)
[2019-02-11] MEDS: TAMSULOSIN HCL 0.4 MG CAP PO SCH (08:27)
[2019-02-11] MEDS ORDERED: PT OWN MED DRAWER 7, Y5N ONE (09:11)
[2019-02-11] MEDS: NIFEdipine E.R 60 MG TABLET PO SCH (09:17)
[2019-02-11] MEDS: HYDROCHLOROTHIAZIDE 25 MG TABLET (FP) PO SCH (09:17)
[2019-02-11] MEDS: FINASTERIDE 5 MG TABLET (FP) PO SCH (09:18)
[2019-02-11] MEDS: ASPIRIN COATED 81 MG TABLET.EC PO SCH (09:21)
[2019-02-11] MEDS: LOSARTAN POTASSIUM 50 MG TABLET (FP) PO SCH (09:22)
[2019-02-11] MEDS: azaTHIOprine 50 MG TABLET PO SCH (09:23)
--- NOTE | 2019-02-11 11:30 | PN ---
Progress Note (short form) - Note Progress Note: ORTHOPEDIC SURGERY PROGRESS NOTE Department of Orthopedic Surgery SUBJECTIVE No acute events overnight. No complaints currently. Denies chest pain, shortness of breath, or calf pain. No nausea or vomiting. Tolerating oral intake. Pain control difficult overnight, but improving. PHYSICAL EXAMINATION General: Alert, oriented, cooperative and no distress. Left Upper Extremity: Normal cervical spine range of motion. No cervical tenderness. Examination of the left shoulder shows no overlying skin changes. There is no scarring. No evidence of atrophy. There is no scapular winging. No evidence of upper extremity peripheral edema. There is no bicipital groove tenderness. There is no tenderness over the greater tuberosity. There is no tenderness over the AC joint. Range of motion of the shoulder shows forward elevation of 125/170, abduction 100, external rotation at side 60, SABER 90 , SABIR 20, and internal rotation to the sacral spine. There is pain at end range of motion. This was compared to the contralateral shoulder which shows forward elevation of 170, abduction 100, external rotation at side 60, SABER 90, SABIR 40, and internal rotation to the mid thoracic spine. There is a positive Speeds test and positive Cross's test. There are positive Neer and Lyons signs. Negative external rotation lag sign. Negative belly press and lift-off lag signs. Sensation is intact to light touch over the axillary, musculocutaneous, median, radial, and ulnar nerve distributions bilaterally. Capillary refill is less than two seconds. Radial pulses 2+ equal bilaterally. Strength testing shows 5/5 abduction, 5/5 external rotation, 5/5 internal rotation, 5/5 biceps, 5/5 triceps. 5/5 wrist extension, 5/5 intrinsics. Right Upper Extremity: No tenderness to palpation. Full passive and active ROM, free from pain. Right Lower Extremity: Bandage right foot. Full passive and active ROM hip and knee, free from pain. No cords or calf tenderness. No significant calf/ankle edema. Left Lower Extremity: No tenderness to palpation. Full passive and active ROM, free from pain. No cords or calf tenderness. No significant calf/ankle edema. DVT Exam: No evidence of DVT seen on physical exam; No cords or calf tenderness ; No significant calf/ankle edema. Intake & Output 02/09/19 02/10/19 02/11/19 23:59 23:59 23:59 Intake Total 2525 1800 700 Output Total 3070 1500 700 Balance -545 300 0 Intake: IV 875 Lactated Ringers Solution 875 1,000 ml @ 125 mls/hr IV ASDIR JUSTINE Rx#: [id number] IVPB 1050 1400 700 Oral 600 400 Output: Drainage 20 Right Foot 20 Urine 3050 1500 700 Void 3050 1500 700 Other: Voiding Method Urinal Urinal Urinal # Unmeasured Voids Void 2 2 Bowel Movement No Weight 241 lb Height 5 ft 10 in Body Mass Index (BMI) 34.5 Active Medications Generic Name Dose Route Start Last Admin Trade Name Freq PRN Reason Stop Dose Admin Acetaminophen 650 mg 02/08/19 19:54 02/10/19 21:20 Tylenol - PO 650 mg Q6H PRN Administration Fever Or Pain Aspirin 81 mg 02/09/19 10:00 02/11/19 09:21 Ecotrin - PO 81 mg DAILY JUSTINE Administration Atorvastatin Calcium 20 mg 02/08/19 22:00 02/10/19 21:12 Lipitor - PO 20 mg HS JUSTINE Administration Azathioprine 75 mg 02/08/19 22:00 02/11/19 09:23 Imuran - PO 75 mg BID JUSTINE Administration Finasteride 5 mg 02/09/19 10:00 02/11/19 09:18 Proscar - PO 5 mg DAILY JUSTINE Administration Heparin Sodium (Porcine) 5,000 unit 02/08/19 22:00 02/11/19 05:53 Heparin - SQ 5,000 unit TID JUSTINE Administration Hydrochlorothiazide 25 mg 02/09/19 10:00 02/11/19 09:17 Hctz - PO 25 mg DAILY JUSTINE Administration Cefepime HCl 2 gm/ Dextrose 100 mls @ 200 mls/hr 02/09/19 02:00 02/11/19 09: 18 IVPB 200 mls/hr Q8H-IV JUSTINE Administration Vancomycin HCl 1,500 mg/ 500 mls @ 250 mls/hr 02/09/19 04:00 02/11/19 03:22 Dextrose IVPB 250 mls/hr Q12H JUSTINE Administration Protocol Insulin Aspart 30 units 02/09/19 07:00 02/11/19 06:02 Novolog Mix 70/30 Vial SQ 30 units BIDAC JUSTINE Administration Insulin Aspart 1 vial 02/08/19 22:00 02/11/19 06:02 Novolog Vial Sliding Scale - SQ 6 units ACHS JUSTINE Administration Protocol Losartan Potassium 100 mg 02/09/19 10:00 02/11/19 09:22 Cozaar - PO 100 mg DAILY JUSTINE Administration Metoprolol Succinate 200 mg 02/09/19 10:00 02/11/19 09:18 Toprol Xl - PO 200 mg DAILY JUSTINE Administration Nifedipine 120 mg 02/09/19 10:00 02/11/19 09:17 Procardia Xl - PO 120 mg DAILY JUSTINE Administration Nortriptyline HCl 10 mg 02/08/19 22:00 02/10/19 21:12 Pamelor - PO 10 mg HS JUSTINE Administration Tamsulosin HCl 0.4 mg 02/09/19 08:30 02/11/19 08:27 Flomax - PO 0.4 mg DAILY@0830 JUSTINE Administration Vital Signs (last) Temp Pulse Resp BP Pulse Ox 98.3 F 86 20 125/60 95 02/11/19 06:06 02/11/19 06:06 02/11/19 06:06 02/11/19 06:06 02/10/19 21:00 Laboratory (coagulation) PT with INR 14.80 SEC (9.7-13.0) H 02/10/19 08:24 Laboratory 02/11/19 07:20 02/11/19 07:20 IMAGING Radiographs of the left shoulder were personally reviewed by me. They show mild degenerative changes with no fracture, dislocation, or bony lesions. ASSESSMENT AND PLAN Martín Andrade is a 63 year old male with left shoulder rotator cuff tendonitis , bursitis, and posterior capsular stiffness. There is a very low suspicion for a septic joint at this time based on his signs and symptoms. - No surgical intervention at this time - Pain control with NSAIDs if no contraindications - Physical Therapy: the patient should start a physical therapy program to work on deltoid and rotator cuff strengthening, shoulder range of motion, and a rotator cuff and scapular stabilization program. Posterior capsular, internal rotation stretching should be emphasized. We discussed which activities they should avoid. They should avoid abduction type, long arm strengthening exercises. They should also avoid lateral raises or humeral abduction with internal rotation, upright rows, behind the neck pull-downs, and presses. - Ice left shoulder - DVT prophylaxis - Monitor H/H - Appreciate medical management - Decubitus precautions heel/sacrum
--- NOTE | 2019-02-11 11:55 | PN ---
Progress Note (short form) - Note Progress Note: s/p TMA Monday night feels improved continued sternal pain and left chest wall pain Vital Signs Period Temp Pulse Resp BP Sys/Cortez Pulse Ox Last 24 Hr 98 F-99 F 76-92 18-20 125-136/60-77 95 cor-rrr lungs clear abd soft,nt ext TMA site is clean still with left sc sternal assymetry and discomfort on palpation CBC, BMP 02/11/19 07:20 02/11/19 07:20 Microbiology 02/09/19 10:10 Blood - Peripheral Venous Blood Culture - Preliminary NO GROWTH OBTAINED AFTER 48 HOURS, INCUBATION TO CONTINUE FOR 3 DAYS. 02/09/19 10:25 Blood - Peripheral Venous Blood Culture - Preliminary NO GROWTH OBTAINED AFTER 48 HOURS, INCUBATION TO CONTINUE FOR 3 DAYS. 02/07/19 13:30 Blood - Peripheral Venous Blood Culture - Final Staphylococcus Aureus 02/07/19 13:30 Blood - Peripheral Venous Blood Culture - Final Staphylococcus Aureus 02/08/19 20:00 Foot - Rt Transmetatarsal Amp. Site Gram Stain - Final 02/08/19 20:00 Foot - Rt Transmetatarsal Amp. Site Wound Culture - Preliminary NO GROWTH OBTAINED AFTER 24 HOURS INCUBATION, REINCUBATED. 02/08/19 20:00 Bone Gram Stain - Final 02/08/19 20:00 Bone Tissue Culture - Preliminary Presumptive Mssa (Pbp2a Neg) 02/08/19 09:20 Blood - Peripheral Venous Blood Culture - Preliminary Staphylococcus Latex Coag Pos 02/08/19 09:53 Blood - Peripheral Venous Blood Culture - Preliminary Staphylococcus Latex Coag Pos a/p MSSA bacteremia- osteo- ct scan of chest reviewed with dr mejias and dr sawant- there is assymetry and proabable phlegmon/abscess at the left sc joint- I have ordered a dedicated soft tissue sono of that area to see if there is any fluid to be drained can switch to cefazolin 2 g q 8h given pen allergy with plans for 6 weeks of treatment f/u esr crp will need outpt f/u can come to our office to see dr cox or we can see him when he comes to the wound care center if they will schedule an appt for ID when he comes for podiatry Myasthenia gravis diabetes pen allergy d/w hostpitalist Problem List - Problems (1) Staphylococcal sepsis Code(s): A41.2 - SEPSIS DUE TO UNSPECIFIED STAPHYLOCOCCUS (2) Osteomyelitis Code(s): M86.9 - OSTEOMYELITIS, UNSPECIFIED Qualifiers: Osteomyelitis type: other acute Osteomyelitis location: foot Laterality: right Qualified Code(s): M86.171 - Other acute osteomyelitis, right ankle and foot (3) Septic arthritis of left sternoclavicular joint Code(s): M00.9 - PYOGENIC ARTHRITIS, UNSPECIFIED (4) Myasthenia gravis Code(s): G70.00 - MYASTHENIA GRAVIS WITHOUT (ACUTE) EXACERBATION (5) Penicillin allergy Code(s): Z88.0 - ALLERGY STATUS TO PENICILLIN (6) Diabetes Code(s): E11.9 - TYPE 2 DIABETES MELLITUS WITHOUT COMPLICATIONS
[2019-02-11] MEDS ORDERED: INSULIN (NOVOLOG) ASPART 100 UNITS/ML 10ML VIAL ONE ×2 (11:58→17:16)
[2019-02-11] MEDS ORDERED: CEFAZOLIN 2 GM/D5W 2 GM/50 ML ML IVPB SCH ×2 (15:21→18:00)
[2019-02-11] MEDS: ACETAMINOPHEN 325 MG TABLET (FP) PO PRN (15:58)
[2019-02-11 17:07] VITALS: BP 117/64; PULSE 94; TEMP 98
--- NOTE | 2019-02-11 19:04 | DS ---
Physical Exam: SUBJECTIVE: Patient seen and examined. Doing well, agreeable to PICC line and SNF placement. Denies chills, fevers, abd pain, SOB, chest pain. Still complains of left shoulder pain but is agreeable with plan outlined by Ortho. OBJECTIVE: Vital Signs Period Temp Pulse Resp BP Sys/Cortez Pulse Ox Last 24 Hr 98 F-99 F 82-94 18-20 117-134/60-77 95-95 PHYSICAL EXAM GENERAL: The patient is awake, alert, and fully oriented, in no acute distress. HEAD: Normal with no signs of trauma. EYES: EOMI, no scleral icterus ENT: moist mucous membranes NECK: Trachea midline, supple LUNGS: Breath sounds equal, clear to auscultation bilaterally, no wheezes, no crackles, no accessory muscle use. HEART: Regular rate and rhythm, S1, S2 without murmur, rub or gallop. ABDOMEN: Soft, nontender, nondistended, normoactive bowel sounds, no guarding, no rebound EXTREMITIES: 2+ pulses, warm, well-perfused, 2+ edema of the right lower extremity. Right foot wrapped in clean dressing without signs of bleeding or seepage NEUROLOGICAL: Normal speech, gait not observed. Decreased sensation on bilateral feet. PSYCH: Normal mood, normal affect. SKIN: Warm, dry LABS Laboratory Results - last 24 hr 02/10/19 02/11/19 02/11/19 21:14 05:55 07:20 WBC 12.9 H RBC 3.25 L Hgb 8.6 L Hct 26.2 L MCV 80.8 MCH 26.4 MCHC 32.7 RDW 15.7 Plt Count 595 H MPV 7.0 L Absolute Neuts (auto) 10.8 H Neutrophils % 83.6 H Lymphocytes % 9.1 D Monocytes % 6.1 Eosinophils % 0.7 D Basophils % 0.5 Nucleated RBC % 0 Sodium Potassium Chloride Carbon Dioxide Anion Gap BUN Creatinine Est GFR (CKD-EPI)AfAm Est GFR (CKD-EPI)NonAf POC Glucometer 259 232 Random Glucose Calcium 02/11/19 02/11/19 02/11/19 07:20 11:46 17:07 WBC RBC Hgb Hct MCV MCH MCHC RDW Plt Count MPV Absolute Neuts (auto) Neutrophils % Lymphocytes % Monocytes % Eosinophils % Basophils % Nucleated RBC % Sodium 132 L Potassium 4.0 Chloride 97 L Carbon Dioxide 28 Anion Gap 7 L BUN 19.4 H Creatinine 1.1 Est GFR (CKD-EPI)AfAm 82.95 Est GFR (CKD-EPI)NonAf 71.57 POC Glucometer 304 334 Random Glucose 206 H Calcium 9.9 HOSPITAL COURSE: Date of Admission:02/07/19 Date of Discharge: 02/11/19 62 year old male with history significant for diabetes mellitus s/p amputation of right great toe, osteomyelitis, hypertension, myasthenia gravis, coronary artery disease s/p 1 stent, presented with complaint of right 4th toe pain, swelling with associated bleeding and purulent discharge. On xray and MRI imaging patient found to have OM of right 4th toe extending to the foot. Patient had a TMA completed by podiatry. Bone sample growing S. Aureus on microbiology. Initial blood cultures were positive for bacteremia but repeat blood cultures were negative to date for bacteremia. Patient set up with a PICC line for continuing abx on discharge. Patient was seen by orthopedics for left shoulder pain. Ortho recommended ice packs, PT, and pain control. CT imaging and U/S were completed to rule out septic joint and possible abscess of the chest. U/S findings positive for muscle myositis. On imaging there was incidental finding of a 1.7cm adrenal nodule was seen for which we recommend follow up for in 2 months and an incidental finding of central and bilateral disc herniation larger on the left reaching the cord at the level of C7-T1, without any evidence of spinal stenosis for which we recommend neurosurgery follow up. Patient found to be anemic while admitted for which we recommend outpatient follow up for further workup of anemia. Patient discharged to SNF for continuing care and rehabilitation. Minutes to complete discharge: 36 Discharge Summary Problems reviewed: Yes Reason For Visit: CELLULITIS Current Active Problems Cellulitis (Acute) Osteomyelitis (Acute) Septic arthritis of left sternoclavicular joint (Acute) Staphylococcal sepsis (Acute) Condition: Stable - Instructions Diet, Activity, Other Instructions: You presented to the hospital with pain in your right 4th toe and were found to have an infection extending to the bone which required a transmetatarsal amputation. You had surgery completed on 02/08/19 but will still need mcfp antibiotics to continue treating the infection. You will need to follow up with our infectious disease doctor after discharge. You were seen by Orthopedics while admitted for your left shoulder pain and we recommend continuing physical therapy and outpatient orthopedic follow up. You will also need to follow up with Podiatry for continuing care of your foot. You will have special a IV line placed prior to discharge for terminal operations manager antibiotics. On imaging there was an incidental finding of a 1.7cm adrenal nodule was seen for which we recommend follow for in 2 months. On imaging there was an incidental finding of central and bilateral disc herniation larger on the left reaching the cord at the level of C7-T1, without any evidence of spinal stenosis. You were found to be anemic while admitted, we recommend outpatient follow up for further workup of anemia. Medication Changes: 1. You are being started on Cefazolin 2grams IV every 8 hours for the next 6 weeks. Follow up with the following physicians: 1. Please follow up with your primary care provider within one week of discharge for further management of your medical conditions. 2. Please follow up with Podiatry within one week of discharge regarding further care of your foot. 3. Please follow up with our infectious disease doctor regarding further management of your antibiotic course. 4. Please follow up with your training and development coordinator regarding the finding of anemia while you were in the hospital. If you do not have a training and development coordinator a referral for one has been included for you. 5. Please follow up with Neurosugery regarding the findings of the disc herniations as noted above. Activity and Diet 1. You are being discharged to a long-term for continuing care and for ongoing physical therapy to help strengthen your muscles and regain your balance. 2. Please monitor your diet as you need to consume a diet low in fats, salt, and sugar. Continue all your other medications as prescribed Please return to the ER if you have any signs or symptoms of chest pain, shortness of breath, uncontrollable fever, chills, nausea, vomiting, numbness, tingling, or weakness in any part of your body, changes in vision, or slurred speech. Please return to the ER if symptoms persist, worsen, or new symptoms arise. Referrals: Keyon Dunn MD [Staff Physician] - Umer Souza MD [Staff Physician] - Gisela Gama MD [Staff Physician] - Chilo Wolf MD [Staff Physician] - ON STAFF,NOT [Non Staff, Medical] - Rufino Casper DO [Staff Physician] - Disposition: [facility] - Home Medications Comprehensive Discharge Medication List: Ambulatory Orders Atorvastatin Ca [Lipitor] 20 mg PO HS 10/24/17 Hydrochlorothiazide 25 mg PO DAILY 10/24/17 Losartan Potassium 100 mg PO DAILY 10/24/17 Metoprolol Succinate 200 mg PO DAILY 10/24/17 Nifedipine ER [Procardia XL -] 120 mg PO DAILY 10/24/17 Nortriptyline HCl [Pamelor -] 10 mg PO HS 10/24/17 Novolin 70-30 100 Unit/ml Vial 68 units SQ AM 10/24/17 Tamsulosin HCl 0.4 mg PO HS 10/24/17 Aspirin [ASA -] 81 mg PO DAILY 02/07/19 Finasteride 5 mg PO DAILY 02/07/19 Metformin HCl [Glucophage] 1,000 mg PO BID 02/08/19 Cefazolin 2 gm/D5w [Ancef 2 gm Premixed Ivpb -] 2 gm IV TID 42 Days #126 ml 07/26 This patient is new to me today: No Emergency Visit: Yes ED Registration Date: 02/07/19 Care time: The patient presented to the Emergency Department on the above date and was hospitalized for further evaluation of their emergent condition. Critical Care patient: No - Discharge Referral Referred to [facility] Med [facility].C[facility] No ATTENDING PHYSICIAN STATEMENT I saw and evaluated the patient. I reviewed the resident's note and discussed the case with the resident. I agree with the resident's findings and plan as documented. SUBJECTIVE: OBJECTIVE: ASSESSMENT AND PLAN:
--- NOTE | 2019-02-11 19:38 | PN ---
Teaching Attending Note Name of Resident: Reva Bonilla ATTENDING PHYSICIAN STATEMENT I saw and evaluated the patient. I reviewed the resident's note and discussed the case with the resident. I agree with the resident's findings and plan as documented. SUBJECTIVE: Feels better. Pain well controlled. Shoulder discomfort improving. No further fevers. Good appetite. OBJECTIVE: Fever resolved, hemodynamcally Stable. Last Vital Signs Temp Pulse Resp BP Pulse Ox 98 F 94 H 20 117/64 95 02/11/19 16:20 02/11/19 16:20 02/11/19 16:20 02/11/19 16:20 02/11/19 09:00 Heart - S1 S2, RRR lungs - Clear to auscultation Abdomen - High BMI. Soft, non-tender. Bowel Sounds normal. Extremities - No calf tenderness, venous stasis, surgical site R foot dressed. MS: NO shoulder swelling/erythema/tenderness. Full ROM, slightly painful on extreme flexion/abduction. Neurovascularly intact. Neuro - AAO x 3. Tone/Power normal all extremities. Laboratory Results - last 24 hr 02/10/19 02/11/19 02/11/19 21:14 05:55 07:20 WBC 12.9 H RBC 3.25 L Hgb 8.6 L Hct 26.2 L MCV 80.8 MCH 26.4 MCHC 32.7 RDW 15.7 Plt Count 595 H MPV 7.0 L Absolute Neuts (auto) 10.8 H Neutrophils % 83.6 H Lymphocytes % 9.1 D Monocytes % 6.1 Eosinophils % 0.7 D Basophils % 0.5 Nucleated RBC % 0 Sodium Potassium Chloride Carbon Dioxide Anion Gap BUN Creatinine Est GFR (CKD-EPI)AfAm Est GFR (CKD-EPI)NonAf POC Glucometer 259 232 Random Glucose Calcium 02/11/19 02/11/19 02/11/19 07:20 11:46 17:07 WBC RBC Hgb Hct MCV MCH MCHC RDW Plt Count MPV Absolute Neuts (auto) Neutrophils % Lymphocytes % Monocytes % Eosinophils % Basophils % Nucleated RBC % Sodium 132 L Potassium 4.0 Chloride 97 L Carbon Dioxide 28 Anion Gap 7 L BUN 19.4 H Creatinine 1.1 Est GFR (CKD-EPI)AfAm 82.95 Est GFR (CKD-EPI)NonAf 71.57 POC Glucometer 304 334 Random Glucose 206 H Calcium 9.9 Current Medications Generic Name Dose Route Start Last Admin Trade Name Freq PRN Reason Stop Dose Admin Acetaminophen 650 mg 02/08/19 19:54 02/11/19 15:58 Tylenol - PO 650 mg Q6H PRN Administration Fever Or Pain Aspirin 81 mg 02/09/19 10:00 02/11/19 09:21 Ecotrin - PO 81 mg DAILY JUSTINE Administration Atorvastatin Calcium 20 mg 02/08/19 22:00 02/10/19 21:12 Lipitor - PO 20 mg HS JUSTINE Administration Azathioprine 75 mg 02/08/19 22:00 02/11/19 09:23 Imuran - PO 75 mg BID JUSTINE Administration Finasteride 5 mg 02/09/19 10:00 02/11/19 09:18 Proscar - PO 5 mg DAILY JUSTINE Administration Heparin Sodium (Porcine) 5,000 unit 02/08/19 22:00 02/11/19 13:09 Heparin - SQ 5,000 unit TID JUSTINE Administration Hydrochlorothiazide 25 mg 02/09/19 10:00 02/11/19 09:17 Hctz - PO 25 mg DAILY JUSTINE Administration Cefazolin Sodium/Dextrose 2 gm in 50 mls @ 100 mls/hr 02/11/19 15:21 17:22 Ancef 2 Gm Premixed Ivpb - IVPB 100 mls/hr Q8H-IV JUSTINE Administration Insulin Aspart 30 units 02/09/19 07:00 02/11/19 17:25 Novolog Mix 70/30 Vial SQ 30 units BIDAC JUSTINE Administration Insulin Aspart 1 vial 02/08/19 22:00 02/11/19 17:26 Novolog Vial Sliding Scale - SQ 10 units ACHS JUSTINE Administration Protocol Losartan Potassium 100 mg 02/09/19 10:00 02/11/19 09:22 Cozaar - PO 100 mg DAILY JUSTINE Administration Metoprolol Succinate 200 mg 02/09/19 10:00 02/11/19 09:18 Toprol Xl - PO 200 mg DAILY JUSTINE Administration Nifedipine 120 mg 02/09/19 10:00 02/11/19 09:17 Procardia Xl - PO 120 mg DAILY JUSTINE Administration Nortriptyline HCl 10 mg 02/08/19 22:00 02/10/19 21:12 Pamelor - PO 10 mg HS JUSTINE Administration Tamsulosin HCl 0.4 mg 02/09/19 08:30 02/11/19 08:27 Flomax - PO 0.4 mg DAILY@0830 [facility] Administration Home Medications Medication Instructions Recorded Atorvastatin Ca [Lipitor] 20 mg PO HS 10/24/17 Hydrochlorothiazide 25 mg PO DAILY 10/24/17 Losartan Potassium 100 mg PO DAILY 10/24/17 Metoprolol Succinate 200 mg PO DAILY 10/24/17 Nifedipine ER [Procardia XL -] 120 mg PO DAILY 10/24/17 Nortriptyline HCl [Pamelor -] 10 mg PO HS 10/24/17 Novolin 70-30 100 Unit/ml Vial 68 units SQ AM 10/24/17 Tamsulosin HCl 0.4 mg PO HS 10/24/17 Aspirin [ASA -] 81 mg PO DAILY 02/07/19 Finasteride 5 mg PO DAILY 02/07/19 Metformin HCl [Glucophage] 1,000 mg PO BID 02/08/19 Cefazolin 2 gm/D5w [Ancef 2 gm 2 gm IV TID 42 Days #126 ml 02/11/19 Premixed Ivpb -] ASSESSMENT AND PLAN: 62 year old male with history of DM 2, PVD s/p R great toe amputation, Osteomyelitis, Hypertension, Myasthenia Gravis, CAD s/p PCI/1 stent, presents with complaint of right 4th toe pain, swelling with associated bleeding and purulent discharge for several months, as well as nasal congestion/cough. 1. Sepsis secondary to R 4th toe Osteomyelitis with overlying cellulitis and Bacteremia. POD 3 s/p transmetatarsal amputation. Leukocytosis improving Blood Cx positive for likely MSSA x 4 bottles.Repeat Blood Cx negative. MRI confirmed osteomyelitis 4th toe with celllulitis of R foot. TTE - no evidence of vegetations or valvular dysfunction. MRI C Spine - no epidural abscess or osteomyelitis, C7/L1 disc herniation ( asymptomatic). Abx changed to IV cefazolin 2 g q 8h (PCN allergy) for 6 weeks as per ID. PICC placed. For out-patient Podiatry, Wound clinic, ID follow ups. 2. MG - continue Azathioprine 3. HTN - continue Nifedipine, Metoprolol, Losartan, HCTZ.. 4. DM 2 - Metformin to resume on discharge 5. CAD s/p PCI/Stent - continue Aspirin/BB/ACEI/Statin. 6. HLD - continue Atorvastatin 7. BPH - continue Tamsulosin, Finasteride. 8. Normocytic Anemia - new since last labs in 2018. No evidence of acute blood loss. Anemia work-up as out-patient. 9. Some swelling Left subclavicular region with L shoulder discomfort. Shoulder Xray normal. No abnormality on CT. Eval by Orthopedics - possible left shoulder rotator cuff tendonitis, bursitis, and posterior capsular stiffness. Recommend ICE, PT. No suspicion for septic joint as per Ortho. Medically optimized for discharge to SNF for ongoing Rehab and for IV Cefazolin , with appropriate follow up.
--- NOTE | 2019-02-13 16:12 | PATH ---
Surgical Pathology Report Patient Name: SHAN PRUITT [facility]. Rec. #: [id number] /Age/Gender: 1955 (Age: 63) / M Account: [id number] Location: [facility] MED/SURG Taken: 02/08/2019 Received: 02/11/2019 Reported: 02/13/2019 Physicians: RENETTA Faye MD Specimen(s) Received A: RIGHT FOOT TRANSMETATARSAL B: RIGHT FOOT 4TH METATARSAL Clinical History Osteomyelitis Final Diagnosis A. RIGHT FOOT TRANSMETATARSAL, AMPUTATION: AMPUTATED RIGHT FOOT WITH 2ND TO 5TH DIGITS SHOWING MARKED ACUTE AND CHRONIC OSTEOMYELITIS, FOCALLY INVOLVING BONE MARGINS. SKIN AND SUBCUTANEOUS TISSUE WITH MARKED ACANTHOSIS, HYPERKERATOSIS, PARAKERATOSIS, ACUTE AND CHRONIC INFLAMMATION. VIABLE SKIN AND SOFT TISSUE MARGIN WITH CHRONIC INFLAMMATION. B. RIGHT FOOT 4TH METATARSAL, EXCISION: PORTION OF BONE WITH PREDOMINANTLY CHRONIC, FOCALLY ACUTE OSTEOMYELITIS. ADJACENT FIBROCONNECTIVE TISSUE WITH MARKED ACUTE AND CHRONIC INFLAMMATION. Electronically Signed [place] Hernandez M.D. Gross Description A. Received in formalin labeled "right foot transmetatarsal," is a 9.3 x 6.5 x 3.8 cm product of a right foot transmetatarsal amputation including digits 2-5. The hallux is not present. The entire fourth digit displays a santana-brown, verrucoid lesion extending to the skin and soft tissue margin. The lesion involves the underlying bone which is markedly softened. Separately received within the same container are 3 portions of undesignated bone, presumably consistent with the second, third and fifth digit bone margins. Also separately received within the same container are 2 ramos portions of unoriented skin and soft tissue measuring 3.0 x 2.3 x 0.6 cm and 6.5 x 2.5 x 1.0 cm. Water Hauler sections are submitted 7 cassettes as follows: 1-cross section of fourth digit with lesion and underlying bone, following decalcification; 2-3-skin and soft tissue margin; 4-presumed second digit bone margin, following decalcification; 5-presumed third digit bone margin, following decalcification; 6-presumed fifth digit bone margin, following decalcification; 7-brewery representative sections of separately received skin and soft tissue. B. Received in formalin labeled "right foot fourth metatarsal," is a 1.3 x 1.3 x 1.2 cm ramos-yellow portion of bone with smooth trabecular bone at both ends. The true bone margin cannot be determined grossly. Shave margins of both ends are submitted in 2 cassettes, following decalcification. 02/12/2019 [facility]02/12/2019
--- NOTE | 2019-02-28 21:09 | OP ---
DATE OF OPERATION: 02/08/2019 PREOPERATIVE DIAGNOSIS: Right foot 4th digit osteomyelitis. POSTOPERATIVE DIAGNOSIS: Right foot 4th digit osteomyelitis. PROCEDURE PERFORMED: Right foot transmetatarsal amputation. SURGEON: [place] DPM ANESTHESIA: Sedation with local injection. INDICATIONS: Patient is a 63-year-old male with the above-mentioned diagnosis. Patient requires surgical intervention for the conditions listed above. I discussed the risks, benefits, and complications for the procedure. Patient signed the consent form. All questions and concerns were addressed. Prior to taking the patient to the OR, n.p.o. status was verified. Preoperative antibiotics were given. DESCRIPTION OF PROCEDURE: Patient was brought to the operating room and placed on the operating table in the supine position. A pneumatic ankle tourniquet was utilized for this procedure. After induction of IV sedation, the right foot was prepped and draped in the normal sterile manner and the procedure was begun. Attention was directed to the patient's right foot where there was notable 4th digit gangrenous and large abscess changes to the 4th digit. On the x-ray there had been noted complete destruction of the 4th digit and the 4th metatarsal. At this time, utilizing a number 15-blade, a large fish mouth-type incision was made starting dorsally the mid shaft of the metatarsal. This was extended around to the plantar aspect of the metatarsophalangeal joint. The incision was deepened plantar to disarticulate the digit from the metatarsophalangeal joint. At this time, there was noted to be complete obliteration of the 4th metatarsal and all of the structures surrounding it. With the use of the sagittal saw, the remainder of 1, 2, 3, and 5 metatarsals were resected at the midshaft of the metatarsal and passed from the operative field. The wound was then flushed copiously with sterile normal saline. The wound flap was then brought dorsally and closed nicely. Closure was obtained with 3-0 Vicryl, 4-0 Prolene, and normal saline in a sterile manner. A BERNADETTE drain was placed in the foot to allow for drainage so no postop hematoma would form. POSTOPERATIVE CONDITION: Patient tolerated anesthesia and procedure well, transferred to the recovery room with vital signs stable and vascular status intact to the right foot. RENETTA ALEJANDRE/[id number]
== END 2019-02-11 20:05 | DRG 854 ==
LOC: JER 11:24 → JERBED 15:23 → J8W 19:00
PROC: 0Y6M0ZB Detachment at Right Foot, Partial 2nd Ray, Open Approach (ICD-10-PCS; 2019-02-08)
PROC: 0Y6M0ZC Detachment at Right Foot, Partial 3rd Ray, Open Approach (ICD-10-PCS; 2019-02-08)
PROC: 0Y6M0ZD Detachment at Right Foot, Partial 4th Ray, Open Approach (ICD-10-PCS; 2019-02-08)
PROC: 0Y6M0ZF Detachment at Right Foot, Partial 5th Ray, Open Approach (ICD-10-PCS; 2019-02-08)
PROC: 0Y6M0Z9 Detachment at Right Foot, Partial 1st Ray, Open Approach (ICD-10-PCS; principal; 2019-02-08 17:00)
PROC: 02HV33Z Insertion of Infusion Device into Superior Vena Cava, Percutaneous Approach (ICD-10-PCS; 2019-02-11)
PROC: B518ZZA Fluoroscopy of Superior Vena Cava, Guidance (ICD-10-PCS; 2019-02-11)
DX: A41.2 Sepsis due to unspecified staphylococcus (principal); M86.171 Other acute osteomyelitis, right ankle and foot; M00.9 Pyogenic arthritis, unspecified; I10 Essential (primary) hypertension; I25.10 Atherosclerotic heart disease of native coronary artery without angina pectoris; E11.69 Type 2 diabetes mellitus with other specified complication; G70.00 Myasthenia gravis without (acute) exacerbation; M50.23 Other cervical disc displacement, cervicothoracic region; M60.9 Myositis, unspecified; E78.5 Hyperlipidemia, unspecified; N40.0 Benign prostatic hyperplasia without lower urinary tract symptoms; E83.42 Hypomagnesemia; L03.031 Cellulitis of right toe; D64.9 Anemia, unspecified; Z89.421 Acquired absence of other right toe(s); Z95.5 Presence of coronary angioplasty implant and graft; Z88.0 Allergy status to penicillin
CPT/HCPCS: 36415; 36569; 70450-TC; 71045-TC-FY; 71260-TC; 72142-TC; 73030-TC-LT-FY; 73630-TC-RT-FY; 73718-TC-RT; 76604; 77001-TC-FY; 80048; 80053; 81003; 82962; 83735; 84100; 84443; 85025; 85027; 85610; 85651; 85730; 86140; 86850; 86900; 86901; 87040; 87070; 87075; 87186; 87205; 88305-TC; 88311-TC; 93005; 93010; 93306-TC; 93971-TC; 94760; 97116-GP; 97161-GP; 99283-25; C1751; J1644; Q9967

== ENCOUNTER 2020-10-24 10:13 | Emergency (ER) | payer OTHER ==
[2020-10-24 10:34] VITALS: BP 135/80; PULSE 103; TEMP 98.2; BMI 37.3
== END 2020-10-24 12:41 | disposition home or self-care (01) ==
LOC: JER 10:13 → JERFT 10:13
DX: K08.9 Disorder of teeth and supporting structures, unspecified (principal)
CPT/HCPCS: 99283-25